=== PATIENT | female | born 1940 | race Caucasian/White ===

== ENCOUNTER 2016-10-29 14:14 | Inpatient (IN) | payer MEDICARE ==
[~2016-10-29] VITALS: Ht 152.4 cm; Wt 60.5 kg
[2016-10-29 13:49] VITALS: BP 159/83; PULSE 94; RESP 20; O2SAT 97
[~2016-10-29 14:14] MED LIST: ALBU1.25 INHALATION; ALBU8.5H4 IH; ASPI81TA3 PO; ATOR40TA69 PO; CALC500T53 PO; CLOP75TA28 PO; DILT30TA PO; FERR-83 PO; KTC2C15 TP; LOSA50TA37 PO; PANT40TA2 PO; RANI300T4 PO; VIT1TABL83 PO; [UNRECOGNIZED DRUG - CODE] PO
--- NOTE | 2016-10-29 15:10 | ED.REPORT ---
HPI-Trauma Minor / Fall Date of Service October 29, 2016 ED Provider: Dwayne Mccoy MD Patient is a 76 year old female with a history of stroke, hyponatremia and hypertension who presents to the ED via EMS complaining of right shoulder pain. Associated symptoms include dizziness, an episode of syncope, diaphoresis, lightheaded, unable to control her bowels, and hitting her head. She denies difficulty swallowing, numbness, tingling or weakness in her legs. The patient reports that her symptoms have resolved besides the right shoulder pain. Per the patient's daughter, the patient's son tripped and fell on top of her and they both fell on a glass table, where she also hit her head. Currently taking ASA and Plavix. Nursing Notes Stated Complaint: R SHOULDER PAIN Chief Complaint: Multiple Trauma/Fall Nursing Notes Reviewed: Yes Allergies: Coded Allergies: Sulfa (Sulfonamide Antibiotics) (Verified Allergy, Intermediate, NAUSEA, 04/27/16) Scheduled Ascorbic Acid (Acerola C) 500 Mg Wafer 500 MG PO DAILY Aspirin Chew (Aspirin Chew) 81 Mg Chew 81 MG PO DAILY Atorvastatin Calcium (Atorvastatin Calcium) 40 Mg Tablet 40 MG PO HS Calcium Carbonate (Calcium Carbonate) 200 Mg Tab.chew 200 MG PO BID Clopidogrel (Clopidogrel) 75 Mg Tablet 75 MG PO DAILY Diltiazem (Diltiazem) 30 Mg Tablet 30 MG PO TID Ferrous Sulfate (Ferrous Sulfate) 325 Mg Tablet 325 MG PO DAILY Ketoconazole (Ketoconazole) 15 Gm Cream..g. 2 % TP DAILY Pantoprazole DR (Protonix) 40 Mg Tablet 40 MG PO DAILY Vit B Comp/C/FA/Iron/Vit E (Vitamin B Complex Tablet) 1 Each Tablet 1 EACH PO DAILY Scheduled PRN Albuterol Neb Soln (Albuterol Neb Soln) 1.25 Mg/3 Ml Vial.neb 1.25 MG INHALATION Q6H PRN PRN For Shortness of Breath General Time Seen by MD: 15:07 Chief Complaint Fall Hx Obtained From: Patient, Daughter Arrived By: Ambulance Onset Occurred: Just prior to arrival Symptom Duration: Since onset Caused by: Fall on ground Location: Shoulder right Recent Healthcare: No recent hospitalization, Recent doctor visit Similar Sx Previous: No Past Medical History Past Medical History COPD hiatal hernia arthritis anxiety anemic hypoatremia Reports: Asthma, COPD, Hypertension Reports: Thyroid disease Past Surgical History carotid Smoking History Former Smoker Social History Alcohol Use: Denies alcohol use Other Social History: Good social support Ambulatory Status Independent Review of Systems Respiratory: Denies: Non-productive cough, Shortness of breath Musculoskeletal: Reports: Extremity pain (right shoulder) Skin: Reports Diaphoresis Neurologic: Reports: Dizziness, Lightheaded, Syncope, Denies: Numbness, Weakness Complete sys rev & neg: except as marked. Female: Reports: Incontinence Physical Exam Initial Vital Signs Vital Signs (First) Date Time Temp Pulse Resp B/P Pulse Ox O2 Delivery O2 Flow Rate FiO2 10/29/16 13:49 36.0 94 20 159/83 97 Nasal Cannula 2 Initial VS: Reviewed General/Constitutional: Awake, Alert, No acute distress Neck: Atraumatic, Supple, Full range of motion Head / Eyes: Atraumatic, Normocephalic, PERRL, EOMI NOSE: .5 cm superficial abrasion to left nasal bridge Respiratory / Chest: Atraumatic, No respiratory distress Abdomen: Atraumatic, Soft, Non-tender Upper Extremity / MS: Neurologic intact, Vascular intact UPPER EXTREMITIES: Gross defomity of the right shoulder Lower Extremity / Pelvis / MS: Atraumatic, Full range of motion, Neurologic intact, Vascular intact Skin: Atraumatic, Color NL, No rash, Warm, Dry Neurologic: Oriented X3, Speech NL, No motor deficits, No sensory deficits, CN II - XII intact Psychiatric: Affect NL, Mood NL Interpretation & Diagnostics Lab Results Interpretation Result Diagram: 10/29/16 1445 10/29/16 1445 Test 10/29/16 14:45 White Blood Count 10.9th/mm3 (3.8-10.1) Red Blood Count 3.62mil/mm3 (3.90-5.20) Hemoglobin 11.1g/dL (12.0-15.6) Hematocrit 33.9% (35.0-46.0) Mean Corpuscular Volume 93.6fL (81-100) Mean Corpuscular Hemoglobin 30.7pg (27.0-35.0) Mean Corpuscular Hemoglobin Concent 32.7% (32.0-37.0) Red Cell Distribution Width 14.9% (12.3-15.4) Platelet Count 322bil/L (150-400) Neutrophils (%) (Auto) 88.7% (40-74) Lymphocytes (%) (Auto) 5.3% (14-46) Monocytes (%) (Auto) 5.5% (4-12) Eosinophils (%) (Auto) 0.1% (0-5) Basophils (%) (Auto) 0.2% (0-3) Hold Purple Top Tube Received (Received) Hold Blue Top Tube Received (Received) Sodium Level 133mEq/L (134-144) Potassium Level 4.6mEq/L (3.5-5.2) Chloride Level 93mEq/L (97-108) Carbon Dioxide Level 25mmol/L (18-29) Blood Urea Nitrogen 16mg/dL (8-27) Creatinine 0.78mg/dL (0.57-1.00) Estimat Glomerular Filtration Rate 103mL/min (>59) Glucose Level 121mg/dL (60-99) Calcium Level 9.8mg/dL (8.5-10.1) Magnesium Level 1.8mg/dL (1.6-2.6) Total Bilirubin 0.2mg/dL (0.0-1.2) Aspartate Amino Transf (AST/SGOT) 29U/L (0-50) Alanine Aminotransferase (ALT/SGPT) 22U/L (0-32) Alkaline Phosphatase 87U/L (25-165) Troponin T < 0.010ug/L (0.0-0.011) Total Protein 6.8g/dL (6.4-8.4) Albumin 4.0g/dL (3.4-5.0) Hold [place] Top Tube Received (Received) Hold [place] Top Tube Received (Received) ECG Interpretation ECG Interpretation: sinus tachycardia, rate 103 high T-wave V2-V6, unchanged from previous EKG Time: 14:11 Interpreted by: ED physician X-Ray Interpretation Xray Interpretation: IMPRESSION: 1. Comminuted displaced and impacted humeral neck fracture. Dictated by: Romeo Angel M.D. on 10/29/2016 at 15:53 Approved by: Romeo Angel M.D. on 10/29/2016 at 15:55 X-Ray Ordered: Shoulder right Interpretation / Wet Read by: Interpret - Radiologist Xray Interpretation: IMPRESSION: Moderately displaced fracture of the surgical neck of the proximal right humerus. Dictated by: Kevin Henry M.D. on 10/29/2016 at 15:02 Approved by: Kevin Henry M.D. on 10/29/2016 at 15:04 X-Ray Ordered: Humerus right Interpretation / Wet Read by: Interpret - Radiologist Xray Interpretation: IMPRESSION: Improved alignment post closed postreduction. Dictated by: Jacobo Garsia M.D. on 10/29/2016 at 17:20 Approved by: Jacobo Garsia M.D. on 10/29/2016 at 17:24 X-Ray Ordered: Humerus right Interpretation / Wet Read by: Interpret - Radiologist CT Head Interpretation IMPRESSION: 1. No acute intracranial abnormalities. 2. Cerebral volume loss and chronic microvascular ischemic changes. Dictated by: Jacobo Garsia M.D. on 10/29/2016 at 18:06 Approved by: Jacobo Garsia M.D. on 10/29/2016 at 18:09 Interpretation / Wet Read by: Interpret - Radiologist Procedures Proced Mod Sedation/Analgesia Sedation repeated again at 1652 for same fracture reduction procedure. Consent received. Time: 16:36 Procedure Performed by: ED physician Sedation Time: 16 - 30 min Consent / Setup: Informed consent provided, Consent from patient, Time-out performed, Hand hygiene observed, Position supine Indication: Fracture reduction Preparation: tea leaf reader applied, Constant attendance, Procedure explained VS Prior to Procedure: All vital signs normal Mallampati: Class & Anatomy: 2 top tonsil/uvula/palate Airway Exam: Normal facial anatomy, Normal neck anatomy CVS/Resp Exam: Normal breath sounds, Normal heart sounds Neuro Exam: Alert, No acute distress, Responsive Sedation: Sedation: Propofol ASA Classification: 3 sev disease/not incap Response During Procedure: Handled secretions adeq, Maintained airway well, Oxygenation stable, Sedation appropriate, Vital signs stable Complications During/After: None Mental Status After Procedure: Alert, Oriented X3, Response to verbal stim Post-Procedure: Alert prior to discharge, Vital signs normal Attestation: I performed procedure, I performed sedation Reduction Dislocated Shoulder Procedure tried again at 1654. Procedure was successful Time: 16:38 Procedure Performed by: ED physician Consent / Setup: Informed consent provided, Consent from patient, Time-out performed, tea leaf reader applied, Hand hygiene observed Procedural Sedation/Analgesia: Sedation: Propofol Which Shoulder and Technique: Right shoulder Neurovascular: Intact pre-procedure, Intact post-procedure Post-Procedure / Complications: Procedure not successful, Condition improved, Tolerated procedure well, Patient stable Re-Eval/Medical Decision Med Decision/Clinical Course 76-year-old female history of COPD presenting status post ground-level fall onto her face and right shoulder earlier today. She has a right proximal humerus fracture which I reduced under conscious sedation per Ortho recommendation. Per Ortho, ok if 10-20% reapproximation which was obtained. Splinted. She was awaiting discharge, patient has syncopal event. Her orthostatics are positive. She was given 1.5 L and had another syncopal event. She had no cardiac prodrome. She does not feel comfortable going home. She will be admitted for syncopal event which I suspect is likely orthostatic. Her CT head was normal. Discussed with orthopedics who is aware she has been admitted but likely nonoperative at this point. Source of Hx: Old records Re-Evaluation/Progress #1: Time of Eval: 15:55 Re-Evaluation/Progress Note: Discussed results of the X-ray. Re-Evaluation/Progress #2: Time of Eval: 16:35 Re-Evaluation/Progress Note: Discussed plan for procedure. The patient understands and agreese to the procedure. All questions addressed. Re-Evaluation/Progress #3: Time of Eval: 17:49 Patient Status: Condition improved Re-Evaluation/Progress Note: Discussed plan for discharge after CT results come back. The patient understands and agrees to the plan for discharge. All questions were addressed. Re-Evaluation/Progress #4: Time of Eval: 18:11 Re-Evaluation/Progress Note: Patient had a syncopal event Rechecked patient who reports she no longer feels lightheaded or dizzy. Discussed plan for further labs. Re-Evaluation/Progress #5: Time of Eval: 19:40 Re-Evaluation/Progress Note: Discussed code status with family present. The patient would like to be resuscitated but not put on life support. Discussed plan for admit. The patient understands and agrees to the plan for admit. All questions were addressed. Consultation #1: Referral / Consult Name: Fabio Agrawal MD Consulted With: Surgeon (ortho) Call Returned at: 15:53 [employer] Admin: Agrees with eval, Agrees with plan Note: Consult with Dr. Talon Agrawal, orthopedic surgeon, who recommends the patient have her arm set and put in a sling and follow up with the ortho surgeon next week. Consultation #2: Referral / Consult Name: Casandra Dover Consulted With: Hospitalist Call Returned at: 21:41 [employer] Admin: Agrees with eval, Agrees with plan, Accepts admit Counseled Regarding: Diagnosis, Lab results, Need for admission Discharge & Departure Impression: Primary Impression: Humerus fracture Encounter type: initial encounter Humerus Location: surgical neck Fracture type: closed Fracture morphology: unspecified fracture morphology Fracture alignment: displaced Laterality: right Qualified Code: S42.211A - Unspecified displaced fracture of surgical neck of right humerus, initial encounter for closed fracture Additional Impressions: Fall Encounter type: initial encounter Qualified Code: W19.XXXA - Unspecified fall, initial encounter Syncope Syncope type: unspecified Qualified Code: R55 - Syncope and collapse Head trauma Disposition: ADMITTED TO HOSPITAL Discharge Condition All VS Reviewed: Yes Condition: Stable Referrals: Jay Jay Vinson MD (PCP) Karen Attestation Portions of this note were transcribed by Johanny Wong. I, Dr. Matthew Chapa personally performed the history, physical exam and medical decision-making; I reviewed and confirmed the accuracy of the information in the transcribed note. Signed by: Karen Gibson, 10/29/16 and 5206 copies to: Jay Jay Vinson MD, Ben M MD October 29, 2016 15:10 Madelaine Wong October 29, 2016 15:53
--- NOTE | 2016-10-29 15:56 | DRSVH ---
PROCEDURE: X-RAY RIGHT SHOULDER, MINIMUM TWO VIEWS ([id number]) INDICATIONS: RIGHT SHOULDER PAIN POST FALL TECHNIQUE: 2 views of the shoulder were acquired. COMPARISON: None. FINDINGS: Bones: There is a comminuted fracture through the humeral neck with medial displacement of the dista l component approximately 3 cm. There is also mild impaction. Soft tissues: No suspicious soft tissue calcifications. IMPRESSION: 1. Comminuted displaced and impacted humeral neck fracture. Dictated by: Romeo Angel M.D. on 10/29/2016 at 15:53 Approved by: Romeo Angel M.D. on 10/29/2016 at 15:55
[2016-10-29 16:05] VITALS: BP 141/80; PULSE 104; RESP 22; O2SAT 98
--- NOTE | 2016-10-29 16:05 | DRSVH ---
PROCEDURE: X-RAY RIGHT HUMERUS, MINIMUM TWO VIEWS ([id number]) INDICATIONS: TRAUMA TECHNIQUE: 2 views of the humerus were acquired. COMPARISON: [facility], , CHEST 2VW, 08/18/2014, 9:49. FINDINGS: Bones: The bone mineralization is diffusely decreased. No suspicious osseous lesions are evident. T here is a transverse fracture with minimal comminution involving the anatomic neck of the proximal ri ght humerus. Anterior medial displacement of the humeral shaft fracture fragment is evident with res pect to the humeral head fracture fragment. The humeral head fracture fragment appears to articulate with the glenoid. Degenerative changes of the glenohumeral and acromioclavicular joints are present . Chronic right-sided rib fractures are noted, healed. Soft tissues: No suspicious soft tissue calcifications. There is a prominent lipohemarthrosis of th e right shoulder joint with surrounding soft tissue about the right shoulder. IMPRESSION: Moderately displaced fracture of the surgical neck of the proximal right humerus. Dictated by: Kevin Henry M.D. on 10/29/2016 at 15:02 Approved by: Kevin Henry M.D. on 10/29/2016 at 15:04
[2016-10-29] MEDS ORDERED: Propofol 10 mg/mL 20 mL Inj IVPUSH ONE (16:10)
[2016-10-29 17:10] VITALS: BP 145/75; PULSE 88; RESP 21; O2SAT 99
--- NOTE | 2016-10-29 17:26 | DRSVH ---
PROCEDURE: X-RAY RIGHT HUMERUS, ONE VIEW ([id number]) INDICATIONS: post-reduction TECHNIQUE: 3 views of the humerus were acquired. COMPARISON: [facility], CR, XR SHOULDER MIN 2VW RT, 10/29/2016, 15:17. [facility], CR, XR HUMERUS 2VW RT, 10/29/2016, 15:17. FINDINGS: Bones: Slightly improved alignment involving the comminuted fracture of the right humeral head and n apurva. There is residual medial displacement. Soft tissues: No suspicious soft tissue calcifications. IMPRESSION: Improved alignment post closed postreduction. Dictated by: Jacobo Garsia M.D. on 10/29/2016 at 17:20 Approved by: Jacobo Garsia M.D. on 10/29/2016 at 17:24
[2016-10-29] MEDS ORDERED: Ondansetron 2 mg/mL 2 mL Inj IVPUSH ONE (17:35)
--- NOTE | 2016-10-29 18:10 | DRSVH ---
PROCEDURE: CT BRAIN WITHOUT CONTRAST ([id number]) INDICATIONS: 76 year-old woman with trauma. TECHNIQUE: Noncontrast 4.5 mm thick angled axial sections acquired from the foramen magnum to the vertex, with c oronal reformats. COMPARISON: [facility], CT, CT BRAIN WO CON, 04/27/2016, 21:49. FINDINGS: Image quality: Excellent. CSF spaces: Basal cisterns are patent. No extra-axial fluid collections. The ventricles are symmet samina in size and shape. Brain: No intracranial bleeds or masses. There are small cortical infarcts in the right parieto-occ ipital lobe, unchanged. There is cerebral volume loss for age, with resultant ventricular and sulcal prominence. There are periventricular and deep white matter chronic small vessel ischemic changes. There is intracranial internal carotid artery atherosclerosis. Skull and face: Calvarium and visualized facial bones appear intact, without suspicious lesions. Sinuses: Visualized sinuses and mastoids are clear. IMPRESSION: 1. No acute intracranial abnormalities. 2. Cerebral volume loss and chronic microvascular ischemic changes. Dictated by: Jacobo Garsia M.D. on 10/29/2016 at 18:06 Approved by: Jacobo Garsia M.D. on 10/29/2016 at 18:09
[2016-10-29 18:34] LABS: BASOPHILS % (AUTO) 0.2 % (0-3); EOSINOPHILS % (AUTO) 0.1 % (0-5); MONOCYTES % (AUTO) 5.5 % (4-12); Mean Corpuscular Hemoglobin 30.7 pg (27.0-35.0); Mean Corpuscular Volume 93.6 fL (81-100); NEUTROPHILS % (AUTO) 88.7 % (40-74); Platelet Count 322 bil/L (150-400)
[2016-10-29 18:50] VITALS: BP 122/54; PULSE 89; RESP 24; O2SAT 97
[2016-10-29 18:56] LABS: TROPONIN T < 0.010 ug/L (0.0-0.011)
[2016-10-29 19:11] LABS: Magnesium 1.8 mg/dL (1.6-2.6)
[2016-10-29] MEDS ORDERED: 0.9% Sodium Chloride 500 ML IV ONE (19:25)
[2016-10-29] MEDS ORDERED: Ondansetron 2 mg/mL 2 mL Inj IVPUSH PRN ×2 (21:45→22:45)
[2016-10-29] MEDS ORDERED: Alum-Mag Hydrox-Simeth 30 mL Suspension PO PRN ×2 (21:45→22:45)
[2016-10-29 22:38] VITALS: BP 130/71; PULSE 104; RESP 20; O2SAT 97
[2016-10-29] MEDS ORDERED: HYDROcodone-APAP 5-325 mg Tablet PO PRN (22:45)
[2016-10-29] MEDS ORDERED: Polyethylene Glycol (PEG) 17 Gm Powder PO PRN (22:45)
[2016-10-29 23:10] VITALS: BP 104/52; PULSE 102; RESP 16; O2SAT 93
--- NOTE | 2016-10-29 23:26 | PCM.HPMED ---
Subjective Date of Service October 29, 2016 Primary Provider: Admitting Physician: Casandra Dover DO Primary Care Physician: Jay Jay Vinson MD Attending Physician: Casandra Dover DO Admit Status: From the Emergency Department Chief Complaint: GLF and syncope History of Present Illness: Melisa is a 72-year-old female with history of CVA, hyponatremia, hypertension, and COPD who presented to the ED for right shoulder pain. She reports that her son tripped and fell on top of her and they both fell onto the kitchen table. She did hit her head on the kitchen table, but denies any loss of consciousness. In the ED, she had a shoulder x-ray that showed comminuted humeral neck fracture with displacement. Orthopedics was consultative and recommended closed reduction, splinting, immobilizing, and follow-up as outpatient. After 2 conscious sedation attempts, closed reduction was moderately successful, but on the second attempt patient was noted to have a syncopal episode with loss of bowel control and diaphoresis. Subsequent brain CT scan did not show any acute abnormalities. Patient again was witnessed to have a near syncopal episode with an assisted trip to the bathroom. She had orthostatic vital signs taken which again, elicited a near syncopal episode. Patient denies any associated chest pain, severe headache, increased shortness of breath, vision changes, or nausea/vomiting with these episodes. Did not appear to be any seizure-like activities prior to the syncopal episodes, and no postictal state. Prior to the ground-level fall today, patient reports she had been at baseline and able to do all her ADLs without any dyspnea. Her history is pertinent for a recent right carotid endarterectomy in May after she was found to have critical stenosis after a CVA that occurred at this hospital in April. She is currently on dual antiplatelet therapy with ASA and Plavix. Review of Systems: complete review of system obtained and negative except as stated in the history of present illness Allergies Coded Allergies: Sulfa (Sulfonamide Antibiotics) (Verified Allergy, Intermediate, NAUSEA, 04/27/16) Home Medications From Next gen albuterol sulfate 2.5 mg/0.5 mL solution for nebulization inhale 0.5 milliliter by nebulization route every 6 hours albuterol sulfate HFA 90 mcg/actuation aerosol inhaler inhale 2 puff by inhalation route every 4 - 6 hours as needed aspirin 81 mg tablet,delayed release take 1 tablet by oral route every day atorvastatin 40 mg tablet take 1 tablet by oral route every day clopidogrel 75 mg tablet take 1 tablet by oral route every day Compact Compressor Nebulizer use with albuterol 4 times a day . diltiazem 30 mg tablet take 1 tablet by oral route 3 times every day iron 325 mg (65 mg iron) tablet take 1 tablet by ORAL route every day Vitamin B Complex With C capsule PMH Chronic hyponatremia Adams's palsy Iron deficiency Anemia Thyroid nodule Hypertension COPD previously on home O2 Hiatal hernia/AVM/GERD UTI Anxiety Eczema PAD CVA with left sided weakness Bilateral carotid stenosis s/p endarterectomy of right side - 10/2016 Surgical History right carotid endarterectomy Family History Family history of HTN and CAD Social History Hx Alcohol Use: No Hx Substance Use: No Hx Tobacco Use: No Smoking Status: Former Smoker Living Arrangement: Alone Exam Vital Signs Vital Sign - Last Date Time Temp Pulse Resp B/P Pulse Ox O2 Delivery O2 Flow Rate FiO2 10/29/16 22:38 104 20 130/71 97 Room Air 10/29/16 17:10 3 10/29/16 13:49 36.0 Exam General: Thin elderly female who appears in mild pain while laying in bed, alert and oriented 3 HEENT: Small abrasion across the nasal bridge, PERRLA, EOMI, sclerae anicteric, oropharynx moist and pink, poor dentition Neck: Soft, mild right paraspinal muscle tenderness to palpation, trachea midline CV: Regular rate and rhythm, no M/R/C noted, peripheral radial pulses intact and equal Respiratory: CTA B, mildly distant lung sounds, no wheezing or rhonchi, normal respiratory effort Abdomen: Soft, mild tenderness to palpation of the right quadrants, nondistended , NABS, no rashes noted MSK: Right arm placed in sling and immobilized, muscle strength 5/5 of LUE and BLE, no swollen or tender joints other than the right shoulder Neuro: Cranial nerves II-12 intact except for right shoulder shrugging due to pain from fracture. Face is symmetric, speech is intact and fluent, and sensation is intact and equal Skin: Warm, dry, intact Psych: Appropriate mood and affect, linear thought process, cooperative Lab and Diagnostics Result Diagram: 10/29/16 1445 10/29/16 1445 X-Rays, CTs and MRIs PROCEDURE: X-RAY RIGHT HUMERUS, ONE VIEW ([id number]) IMPRESSION: Improved alignment post closed postreduction. PROCEDURE: CT BRAIN WITHOUT CONTRAST ([id number]) IMPRESSION: 1. No acute intracranial abnormalities. 2. Cerebral volume loss and chronic microvascular ischemic changes PROCEDURE: X-RAY RIGHT SHOULDER, MINIMUM TWO VIEWS ([id number]) IMPRESSION: 1. Comminuted displaced and impacted humeral neck fracture. 12-lead ECG Sinus tachycardia heart rate of 103, no acute ST changes Assessment & Plan Melisa is a 72-year-old female with history of CVA, hyponatremia, hypertension, and COPD who is admitted for right shoulder fracture and syncopal episodes. Syncopal episodes, present on admission Patient fairly orthostatic from lying to sitting. Likely is the cause of patient's syncopal episodes. DDX to include are vasovagal, CVA or thrombosis, seizures, hypoxia Will continue frequent neurochecks overnight. IV NS at 100mls/hr Placed on telemetry for CV monitoring Recheck Orthostatic Vs in the AM. Consider neuro imaging if worsening. 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 Patient reports she was previously on home oxygen, but has not been requiring it after her recent CEA. We will continue home inhalers prn History of CVA, POA We will continue patient's ASA and Plavix and statin Hypertension, POA We will continue patient's home medication Chronic hyponatremia, POA Currently stable with a sodium of 133 on admission Continue to monitor and treat as appropriate Tylenol when necessary for fever/pain Zofran when necessary for nausea Bowel regimen when necessary for constipation CODE STATUS: Full resuscitation Disposition: Patient is admitted under observation status with expected length of stay less than 2 midnights due to risk of adverse events, decompensation, and medical complexity Pain Evaluation: Adequate Pain Control VTE Prophylaxis: Sub-Q Heparin (Unfractionated), SCDs Resuscitation Status: CPR: Attempt Resuscitation Attending Statement The patient was seen and examined together with house staff on 10/29/2016 and I agree with the history, exam and plan as outlined in the note above. Minh Gamez DO October 29, 2016 22:55 Casandra Dover DO October 30, 2016 03:36
[2016-10-29] MEDS: 0.9% Sodium Chloride 1,000 ML IV SCH (23:37)
[2016-10-29] MEDS ORDERED: Albuterol-Ipratropium 3 mL Inhalation Solution NEB PRN (23:40)
[2016-10-30] VITALS (11 sets, daily range): BP systolic 80–134; BP diastolic 49–72; PULSE 58–114; RESP 16–20; O2SAT 90–94
[2016-10-30] MEDS ORDERED: Albuterol 1.25 mg/3 mL Inhalation Solution INHALATION PRN (00:10)
--- NOTE | 2016-10-30 00:24 | NUR ---
Admit pt arrived to OSC room 1024 at 2300. she was transferred from the [facility] to the bed with sliding board. IV fluids started and tele monitor placed on pt. per gambling monitor pt is Sinus Tach 110. she is alert and oriented x3. sp02 is 93% on RA. pt eating a meal now has good appetite. pt has an abrasion on her nose, a large bruise on her R arm, and a small bruise on her R lower back. nurse monitoring the bruising for any rapid increase in size. Monitoring H&H with orders to transfuse if Hemoglobin below 7. Heparin held per MD orders. admit and med rec completed in Ed. care continues
[2016-10-30] MEDS: Heparin 5,000 Unit/mL Inj SUBQ SCH ×3 (00:30→18:05)
[2016-10-30 06:15] LABS: BASOPHILS % (AUTO) 0.1 % (0-3); EOSINOPHILS % (AUTO) 0.4 % (0-5); MONOCYTES % (AUTO) 6.5 % (4-12); Mean Corpuscular Hemoglobin 30.9 pg (27.0-35.0); Mean Corpuscular Volume 95.1 fL (81-100); NEUTROPHILS % (AUTO) 87.1 % (40-74); Platelet Count 259 bil/L (150-400)
[2016-10-30] MEDS: 0.9% Sodium Chloride 1,000 ML IV SCH ×3 (06:38→20:01)
[2016-10-30] MEDS: Pantoprazole 40 mg ER24 Tablet PO SCH (11:04)
--- NOTE | 2016-10-30 11:11 | NUR ---
Social Work- Initial Assessment Data: See Initial Assessment. Pt is a 76 year old female admitted 10/29/16 under observation status per H&P. Pt's insurance is [facility] and [employer]. Pt's PCP is Jay Jay Vinson MD. Pt's readmit score is not listed at this time. Pt discussed in AM rounds, RETURNING OFFICER and agreed that pt would benefit from PT/OT evaluation once medically clear. MD is following pt's H&H, pt has had orthostatic vitals. PT and OT order to be placed. SINAN met with pt and daughter Alek Mcmahan [phone] at bedside regarding discharge plan, SW role explained. Pt alert and oriented x3, pt was dozing during conversation and Alek completed most of it. Pt resides at home in [place] in a [facility] level home where she receives assistance/monitoring from family with medications, bathing, laundry, chores. Pt's daughter and granddaughter plan to share caregiving duties for pt at discharge. Pt uses no DME at baseline, does have a walker available for use. Pt has a bath bench and raised toilet seat available for use after discharge if needed. Pt has an O2 concentrator and tanks through [facility], though per dtr report she has not used it since May 2016. Pt has no HH or SNF history. Of Note: pt's daughter is open to HH if necessary but felt it would not be needed at this time. Pt's daughter is adamantly opposed to SNF as a discharge plan. Pt has no LTC or VA benefits. SW informed pt's daughter that RETURNING OFFICER would be able to assist with acquiring more DME if needed, though most of it is private pay. Daughter agreeable to this. SW provided phone number and plan on whiteboard. PT/OT evaluation pending. Pt to discharge home with family support via POV pending clinical course. SW to R/O HH prior to discharge. SW will continue to follow. Assessment: Pt who has family support at home and may benefit from HH Plan: PT/OT evaluation pending. Pt to discharge home with family support via POV pending clinical course. SW to R/O HH prior to discharge. SW will continue to follow. TAD Neal Addendum: 10/30/16 at 1119 by BLAIR NICK SS Amended: Links added.
--- NOTE | 2016-10-30 11:27 | NUR ---
Case Management: NEHEMIAH delivered and explained to pt. and daughter. Original placed in chart. Copy left at bedside. Bharati Drew RN
--- NOTE | 2016-10-30 14:35 | PCM.CONORT ---
Subjective Surgeon Admitting Provider:Casandra Dover DO Attending Provider:Casandra Dover DO Primary Care Physician:Jay Jay Vinson MD Other Provider:Deny Miles Anesthesia Reason for Consultation: Right shoulder pain Allergy Allergies: Coded Allergies: Sulfa (Sulfonamide Antibiotics) (Verified Allergy, Intermediate, NAUSEA, 04/27/16) Medications Albuterol Neb Soln (Albuterol Neb Soln) 1.25 Mg/3 Ml Vial.neb 1.25 MG INHALATION Q6H PRN PRN For Shortness of Breath (Reported) Last Taken: Unknown Dose on Unknown Date & Time Ascorbic Acid (Acerola C) 500 Mg Wafer 500 MG PO DAILY (Reported) Last Taken: Unknown Dose on 10/29/16 0900 Aspirin Chew (Aspirin Chew) 81 Mg Chew 81 MG PO DAILY Prescribed by: LORENZO MITCHELL DO Last Taken: Unknown Dose on 10/29/16 0900 Atorvastatin Calcium (Atorvastatin Calcium) 40 Mg Tablet 40 MG PO HS Prescribed by: LORENZO MITCHELL DO Last Taken: Unknown Dose on 10/29/16 0900 Calcium Carbonate (Calcium Carbonate) 200 Mg Tab.chew 200 MG PO BID (Reported) Last Taken: Unknown Dose on 10/29/16 0900 Clopidogrel (Clopidogrel) 75 Mg Tablet 75 MG PO DAILY (Reported) Last Taken: Unknown Dose on 10/29/16 0900 Diltiazem (Diltiazem) 30 Mg Tablet 30 MG PO TID (Reported) Last Taken: Unknown Dose on 10/29/16 0900 Ferrous Sulfate (Ferrous Sulfate) 325 Mg Tablet 325 MG PO DAILY (Reported) Last Taken: Unknown Dose on 10/29/16 0900 Ketoconazole (Ketoconazole) 15 Gm Cream..g. 2 % TP DAILY (Reported) Last Taken: Unknown Dose on 09/29/[address] (Protonix) 40 Mg Tablet 40 MG PO DAILY Prescribed by: LORENZO MITCHELL DO Last Taken: Unknown Dose on 10/29/16 0900 Vit B Comp/C/FA/Iron/Vit E ( Vitamin B Complex Tablet) 1 Each Tablet 1 EACH PO DAILY (Reported) Last Taken: Unknown Dose on 10/28/16 1200 Discontinued Medications Albuterol HFA (Albuterol HFA) 8.5 Gm Hfa.aer.ad 1 PUFF IH Q4 PRN PRN For Shortness of Breath (Reported) Losartan Potassium (Losartan Potassium) 50 Mg Tablet 50 MG PO BID (Reported) Ranitidine (Ranitidine) 300 Mg Tablet 300 MG PO BID (Reported) History History of ENT Problems?: No HEENT History: Denies:: Abnormal Airway Cataracts Difficult Intubation Dysphagia Glaucoma Hearing Problem Sinus Problem Denture Type: Partial- Upper Partial- Lower Teeth Condition: Within Normal Limits Hx of Heart Problems?: Yes Cardiovascular History: Positive for:: Hypertension Denies:: AICD Atrial Fibrillation Cardiac Surgery Chest Pain Congestive Heart Failure Edema Pacemaker Valvular Heart Disease Hx of Respiratory Problem?: Yes Respiratory History: Positive for:: Asthma COPD Cough Dyspnea Denies:: Chest Surgery Hemoptysis Pneumonia Tuberculosis Hx Neurologic Problems?: Yes Neurological History: Positive for:: Dizziness Headaches Denies:: Alzheimer's Disease CVA Dementia Parkinson's Disease Seizures Hx of GI Problems?: No Hx of Problems?: No Genitourinary History: Positive for:: Urinary Tract Infection Denies:: HX of Hemodialysis Kidney Stones HX of Peritoneal Dialysis: No Female Hx: Denies:: Currently Endometriosis Pelvic Inflammatory Problems with Breasts? Hx Musculoskeletal Problems?: Yes Musculoskeletal History: Denies:: Back Injury Joint Replacement Musculoskeletal Trauma Other History/Comment Melisa Beach is a 76-year-old right hand dominant patient who presents to the ER and orthopedic evaluation was requested for their ongoing symptoms of the right shoulder. PT with hx of CVA, hyponatremia, hypertension, and COPD, She is on plavix and and ASA and reports that she cannot come off of it for elective surgery per her doctor. The patient states that their pain is a sharp in nature and mild/moderate in severity localized to the deep aspect of the shoulder without radiation. This has been progressing over the past day after falling. Moreover, the pain is exacerbated by activities, especially with movement. Rest seems to improve the symptoms. There is no reports numbness, tingling, or weakness to the affected distal upper extremity. The pain does wake the patient up at night. The patient denies any fever, chills, nausea, vomiting, chest pain, shortness of breath, or calf tenderness. Previous treatment has included:reduction in ER, sling. Work/hobbies/sports include: [ none]. Hx of Psycho/Social Problems?: No Psycho Social History: Positive for:: Anxiety Denies:: Bipolar Disorder Hx Depression Hx Surgeries?: Yes (CAROTID) Hx Any Other Health Problems?: Yes Other History: Positive for:: Hospitalization (hyponatremia) Thyroid Disease Denies:: Cancer Endocrine Disease History Blood Transfusions: Positive for:: Accept Blood Products? Denies:: Blood Transfuse Reaction Blood Transfusions Hx Diabetes: NoBedside Blood Glucose: 123 Hx Alcohol Use: NoHx Substance Use: No Smoking Status: Former Smoker Have You Smoked inLast 12 mo: NoApprox How Many Cigarettes/day: LESS THAN 1PK/ DAY Objective Exam Objective Vital Signs & I/O Vital Sign- Last 8 Hours Date Time Temp Pulse Resp B/P Pulse Ox O2 Delivery O2 Flow Rate FiO2 10/30/16 13:12 36.4 60 16 112/70 92 Room Air 10/30/16 10:30 36.7 58 17 118/67 93 Room Air 134/70 112/69 10/30/16 07:53 100 16 91 Room Air Intake and Output- Last 8 Hour 10/30/16 Cumulative From/Thru 06:59 10/29/16 13:49 - 10/30/16 06:46 Intake Total 1090 ml 1590 ml Output Total 50 ml 50 ml Balance 1040 ml 1540 ml Intake Oral 200 ml 200 ml IV Total 890 ml 1390 ml Output Urine Total 50 ml 50 ml # Bowel Movements 1 1 Lab & Micro Results Laboratory Tests Test 10/29/16 14:45 10/29/16 23:28 10/30/16 02:04 10/30/16 05:45 White Blood Count 10.9th/mm3 (3.8-10.1) 9.5th/mm3 (3.8-10.1) Red Blood Count 3.62mil/mm3 (3.90-5.20) 2.65mil/mm3 (3.90-5.20) Hemoglobin 11.1g/dL (12.0-15.6) 9.0g/dL (12.0-15.6) 8.4g/dL (12.0-15.6) 8.2g/dL (12.0-15.6) Hematocrit 33.9% (35.0-46.0) 27.6% (35.0-46.0) 26.1% (35.0-46.0) 25.2% (35.0-46.0) Mean Corpuscular Volume 93.6fL (81-100) 95.1fL (81-100) Mean Corpuscular Hemoglobin 30.7pg (27.0-35.0) 30.9pg (27.0-35.0) Mean Corpuscular Hemoglobin Concent 32.7% (32.0-37.0) 32.5% (32.0-37.0) Red Cell Distribution Width 14.9% (12.3-15.4) 15.2% (12.3-15.4) Platelet Count 322bil/L (150-400) 259bil/L (150-400) Neutrophils (%) (Auto) 88.7% (40-74) 87.1% (40-74) Lymphocytes (%) (Auto) 5.3% (14-46) 5.7% (14-46) Monocytes (%) (Auto) 5.5% (4-12) 6.5% (4-12) Eosinophils (%) (Auto) 0.1% (0-5) 0.4% (0-5) Basophils (%) (Auto) 0.2% (0-3) 0.1% (0-3) Hold Purple Top Tube Received (Received) Hold Blue Top Tube Received (Received) Sodium Level 133mEq/L (134-144) 134mEq/L (134-144) Potassium Level 4.6mEq/L (3.5-5.2) 5.2mEq/L (3.5-5.2) Chloride Level 93mEq/L (97-108) 96mEq/L (97-108) Carbon Dioxide Level 25mmol/L (18-29) 24mmol/L (18-29) Blood Urea Nitrogen 16mg/dL (8-27) 21mg/dL (8-27) Creatinine 0.78mg/dL (0.57-1.00) 1.05mg/dL (0.57-1.00) Estimat Glomerular Filtration Rate 103mL/min (>59) 73mL/min (>59) Glucose Level 121mg/dL (60-99) 136mg/dL (60-99) Calcium Level 9.8mg/dL (8.5-10.1) 9.2mg/dL (8.5-10.1) Magnesium Level 1.8mg/dL (1.6-2.6) Total Bilirubin 0.2mg/dL (0.0-1.2) Aspartate Amino Transf (AST/SGOT) 29U/L (0-50) Alanine Aminotransferase (ALT/SGPT) 22U/L (0-32) Alkaline Phosphatase 87U/L (25-165) Troponin T < 0.010ug/L (0.0-0.011) Total Protein 6.8g/dL (6.4-8.4) Albumin 4.0g/dL (3.4-5.0) Hold [place] Top Tube Received (Received) Hold Grijalva Top Tube Received (Received) Test 10/30/16 07:35 Sodium Level 136mEq/L (134-144) Potassium Level 5.4mEq/L (3.5-5.2) Chloride Level 101mEq/L (97-108) Carbon Dioxide Level 22mmol/L (18-29) Blood Urea Nitrogen 26mg/dL (8-27) Creatinine 1.21mg/dL (0.57-1.00) Estimat Glomerular Filtration Rate 62mL/min (>59) Glucose Level 123mg/dL (60-99) Calcium Level 8.6mg/dL (8.5-10.1) Microbiology 10/30/16 Stool Occult Blood (JEFFRY) - Final, Complete Result Diagram: 10/30/16 0545 10/30/16 0735 Review of Systems: Constitutional: Negative, except as otherwise mentioned in the history above. Ophthalmologic: Negative, except as otherwise mentioned in the history above. Cardiovascular: Negative, except as otherwise mentioned in the history above. Respiratory: Negative, except as otherwise mentioned in the history above. Gastrointestinal: Negative, except as otherwise mentioned in the history above. Genitourinary: Negative, except as otherwise mentioned in the history above. Musculoskeletal: Negative, except as otherwise mentioned in the history above. Neurological: Negative, except as otherwise mentioned in the history above. Psychiatric: Negative, except as otherwise mentioned in the history above. Hematologic/Lymphatic: Negative, except as otherwise mentioned in the history above. Allergic/Immunologic: Negative, except as otherwise mentioned in the history above. H&P Surgical Exam Exam Musculoskeletal: CONST: WD,WN, NAD, A+OX3 OCULAR: EOMI, no conjunctivitis/icterus ENT: no deformities, scars or lesions CARDIAC: Pulse is regular. No cyanosis,clubbing,edema RESP: regular,unlabored MSK: normal light touch median, ulnar, radial, lateral antebrachial, axillary nerve distribution. Intact AIN, PIN, u, r, ax motor. 2+ r pulse Right SHOULDER - scars, - swelling, - atrophy or asymmetry. TTP anteriorly ROM R/ L Strength/Pain deferred +painful arc, + pain with passive stretch, + pseudoparalysis, + crepitus Signs Neer's: na Hawkin's: na Belly- Off: na O'Briens: na Apprehension: na Jerk: na Drawer: na Sulcus: na Speed's:na Yergason: na Scapular Winging: na Crossbody Adduction: na Additional Information Two-view x-ray of the right shoulder demonstrates a moderate to severely displaced proximal humeral neck fracture with minimal bone apposition H&P Preop Plan Impression Right proximal humerus fracture Problems: Risks & Benefits * We have reviewed the risks and benefits as well as the alternatives to surgery. All questions were answered to the patient's satisfaction and a counseling note to that effect. The patient has provided informed consent. * I have counseled the patient regarding the deleterious effects that smoking during the perioperative period can have upon wound healing, infection rates, and the overall rate of complications. Plan Nonweightbearing right upper extremity Sling for comfort Recommend elbow, wrist, hand range of motion exercises daily Pain control Patient to follow up in clinic when discharged We discussed surgical versus nonsurgical treatment options as well as risks and complications associated with each option she has elected for nonoperative treatment given medical comorbidities and unable to stop ASA and plavix for recent carotid bovine graft surgery Continue medical management per primary continue Syncopal workup Please call with questions Please keep the affected extremity elevated when possible. You may use ice and/or heat as needed for comfort. All questions and concerns were addressed. Please feel free to call with any further questions, comments, and/or concerns. Fabio Agrawal MD October 30, 2016 14:35
--- NOTE | 2016-10-30 14:37 | NUR ---
Attempted eval X 2. RN and then PT were with pt. I will check on her in the morning. Satish Green, OTR/L
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
[2016-10-30 18:03] LABS: APPEARANCE,URINE CLEAR (CLEAR,HAZY); COLOR,URINE YELLOW (YELLOW); PH,URINE 5.5 (5.0-8.0)
[2016-10-30 18:04] LABS: OCCULT BLOOD,URINE NEGATIVE (NEGATIVE); UROBILINOGEN,URINE NORMAL (NORMAL)
[2016-10-31] VITALS (10 sets, daily range): BP systolic 0–149; BP diastolic 0–78; PULSE 86–98; RESP 16–20; O2SAT 96–99
[2016-10-31] MEDS: Heparin 5,000 Unit/mL Inj SUBQ SCH ×3 (00:30→16:30)
[2016-10-31] MEDS: 0.9% Sodium Chloride 1,000 ML IV SCH ×4 (02:49→22:49)
--- NOTE | 2016-10-31 04:20 | NUR ---
blood admin pt had a critical hemoglobin of 6.8. MD ordered 1 unit of PRBC. blood admin consent signed. blood was started at 0320. her 15 min VSS check was stable no s/sx of reaction at this time. will continue to monitor for reaction. also watching for signs of fluid overload. earlier in the shift nurse reported to MD that pt had an increase in edema in lower extremities and was more SOB then before. MD ordered NS to be stopped. currently pts lungs sound clear and she is on 2L of 02 while sleeping but tolerating being on RA while awake. will monitor for signs of fluid overload. Addendum: 10/31/16 at 0718 by ANIKA TROTTER RN pt tolerated blood admin with no signs of recreation. VSS and afebrile
[2016-10-31 07:41] LABS: BASOPHILS % (AUTO) 0.4 % (0-3); EOSINOPHILS % (AUTO) 0.5 % (0-5); Mean Corpuscular Hemoglobin 30.8 pg (27.0-35.0); Mean Corpuscular Volume 92.5 fL (81-100); NEUTROPHILS % (AUTO) 73.4 % (40-74); Platelet Count 231 bil/L (150-400)
--- NOTE | 2016-10-31 09:11 | NUR ---
Evaluation completed. Please go to "Notes" then click on "Assessments and Notes" (bottom left corner of screen). Then select appropriate discipline tab on top of screen.
[2016-10-31] MEDS: Pantoprazole 40 mg ER24 Tablet PO SCH (09:16)
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
[2016-11-01] VITALS (13 sets, daily range): BP systolic 128–151; BP diastolic 57–74; PULSE 81–95; RESP 16–18; O2SAT 97–100
[2016-11-01] MEDS: Heparin 5,000 Unit/mL Inj SUBQ SCH ×3 (01:19→15:47)
[2016-11-01] MEDS: 0.9% Sodium Chloride 1,000 ML IV SCH ×2 (05:29→11:56)
[2016-11-01 06:03] LABS: BASOPHILS % (AUTO) 0.5 % (0-3); EOSINOPHILS % (AUTO) 1.3 % (0-5); MONOCYTES % (AUTO) 10.7 % (4-12); Mean Corpuscular Volume 96.4 fL (81-100); NEUTROPHILS % (AUTO) 72.2 % (40-74); Platelet Count 251 bil/L (150-400)
--- NOTE | 2016-11-01 07:20 | NUR ---
activity pt had an uneventful night. she took 650 mg of tylenol for pain at bedtime and has reported her pain as tolerable. ice has been placed on pts shoulder and arm elevated. she has slept comfortably all night. pt H&H has started to increase. VSS and afebrile. care continues.
[2016-11-01] MEDS: Pantoprazole 40 mg ER24 Tablet PO SCH (10:15)
--- NOTE | 2016-11-01 10:15 | NUR ---
Respiratory Pt assessed, found laying in bed on 2LNC. Sat 100%, HR 93, RR 22, BS clear/quiet bilaterally. Pt denied SOB at this time, stated breathing was going alright. Pt did not want a Tx at this time and is aware Tx is available if she feels the need.
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
--- NOTE | 2016-11-01 15:36 | DRSVH ---
PROCEDURE: X-RAY CHEST, TWO VIEWS ([id number]) INDICATIONS: hypoxemia/CHORNIC OBSTRUCTIVE PULMONARY DISEASE TECHNIQUE: 2 views of the chest were acquired. COMPARISON: [facility], CR, XR HUMERUS 2VW RT, 10/29/2016, 16:37. [facility] S, CR, CHEST 2VW, 08/18/2014, 9:49. [facility], CR, XR CHEST 1VW (PORTABLE), 04/27/2016, 12:46. FINDINGS: Surgical changes and devices: None. Lungs and pleura: No pleural effusions or pneumothorax. Lungs are clear. There are diffuse interst itial opacities Mediastinum: Mediastinal contours are normal. Heart size is normal. Bones and chest wall: Mid thoracic compression fractures, which appear chronic. Severely displaced fr acture of the surgical neck of the right humerus as before IMPRESSION: No acute disease or interval change. Hyperinflated lungs suggesting chronic obstructive physiology Right humerus fracture Dictated by: Dex Christopher M.D. on 11/01/2016 at 15:32 Approved by: Dex Christopher M.D. on 11/01/2016 at 15:34
--- NOTE | 2016-11-01 15:42 | NUR ---
NEHEMIAH signed. Pt required to sign with non-dominant hand. Kristi Zhang MSW
--- NOTE | 2016-11-01 18:48 | NUR ---
Off Unit Pt off unit at 1440 and returned at ~1455. A&Ox3. Stable condition. Left and returned by w/c on 2L NC. to BR upon return, Tele on, back to chair. Care continues.
--- NOTE | 2016-11-01 18:52 | NUR ---
Pain Pt typically stating that pain tolerable to shoulder in current position. Did encourage pt to take dose of PO Tylenol, pt accepting and was able to take a nap. Pain levels stated 2-3/10. Icing applied to shoulder. Swelling continues to RUE and pt continues to state, numbness/tingling to middle finger of right hand. States she can feel when digit is touched, but states it is a dull feeling. Continues icing and elevating wrist/hand area. Care continues.
[2016-11-02] VITALS (9 sets, daily range): BP systolic 121–149; BP diastolic 61–72; PULSE 73–87; RESP 16–19; O2SAT 96–100
[2016-11-02] MEDS: Heparin 5,000 Unit/mL Inj SUBQ SCH (00:39)
--- NOTE | 2016-11-02 03:59 | NUR ---
Pain Pt reports pain 4/10 when asking if she has pain, she says only with movement. Using PRN tylenol to keep pain at a 2/10 so she can get up tp BCS or BR. Pt had 0 episodes of hypotension. BP 143/66 and rec'd routine dilaudid. Right arm in sling, pillow supporting with elevation of wrist and hand using towel. Pt reports mild numbness/tingling to fingers, cap refill <3. Care continues
[2016-11-02 05:57] LABS: BASOPHILS % (AUTO) 0.6 % (0-3); EOSINOPHILS % (AUTO) 1.7 % (0-5); MONOCYTES % (AUTO) 11.2 % (4-12); Mean Corpuscular Hemoglobin 30.6 pg (27.0-35.0); Mean Corpuscular Volume 98.4 fL (81-100); NEUTROPHILS % (AUTO) 65.8 % (40-74); Platelet Count 252 bil/L (150-400)
[2016-11-02 06:20] LABS: Magnesium 1.8 mg/dL (1.6-2.6)
--- NOTE | 2016-11-02 09:01 | NUR ---
Social Work- Continued D/C Planning Data: EMR reviewed. Pt is on day 4 of hospitalization for syncope, humerus fracture per H&P. Pt is not medically stable for discharge, but is slowly improving. PT recommending HHPT and 24/7 supervision. SKI PATROL DIRECTOR met with pt and granddagabriela Solorio at bedside regarding home health services at time of discharge. Pt is agreeable to this, HH CHOICE LIST PROVIDED. Pt requested that SKI PATROL DIRECTOR call pavel Gaston [phone] regarding HH choice. T/C to Alek regarding HH, Alek states that pt's granddaughter works for [employer] [phone] and they would like to use those services. T/C to [employer] regarding potential referral, [employer] reports they only service [facility] for HH, would not be able to service pt on [place]. SKI PATROL DIRECTOR to follow up with pt and family regarding this, obtain new HH choice. SW will continue to follow. Assessment: Pt for whom HH is medically necessary. Plan: PT recommending HHPT and 24/7 supervision. [employer] does not service pt on [place]. SKI PATROL DIRECTOR to follow up with pt and family regarding new HH choice. SW will continue to follow. TAD Neal Addendum: 11/02/16 at 1135 by BLAIR NICK SKI PATROL DIRECTOR spoke with pt and pavel Gaston at bedside regarding HH. Alek requested referral be made to [facility]. T/C to linda Mason [facility] liaison [phone], who states that their PT service is completely booked at this time but she would have access to the PT calendar and know more availability on Thursday. SKI PATROL DIRECTOR faxed clinicals and signed F2F to Isabella at [phone]. Signed F2F in folder, hard copy in chart. SKI PATROL DIRECTOR to follow up with [facility] regarding PT availability for pt at discharge. Pt's daughter requested assistance obtaining DME for pt at discharge. Daughter requested BSC, Toilet Safety Frame, Hospital Bed, and hospital gowns. SKI PATROL DIRECTOR advised her to go to [employer] or [employer] for the BSC and Toilet Safety Frame, search retailers and online markets for hospital gowns. Daughter requested SKI PATROL DIRECTOR work with [employer] to obtain hospital bed. SKI PATROL DIRECTOR explained that pt's MCR will not cover hospital bed as it is not medically necessary. SKI PATROL DIRECTOR confirmed with Hospitalist that hospital bed is not medically necessary at discharge. [place] [facility] is closed on the weekend, SKI PATROL DIRECTOR to follow up with pt and her daughter on Thursday regarding DME and out of pocket cost quotes. SW will continue to follow. TAD Neal, TAD
[2016-11-02 09:23] LABS: INR 0.88 ratio
[2016-11-02] MEDS: Pantoprazole 40 mg ER24 Tablet PO SCH (09:46)
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
--- NOTE | 2016-11-02 18:31 | NUR ---
Pt and daughter worried that pt may be developing UTI d/t frequency of urination and decreased amount of output. Pt stating that she feels like her bladder is full when needing to get to BR, but then only has minimal output ~100cc at a time. Pt denying any pain with urination. Offered to bladder scan - post void Bladder scan revealed 0cc. Pt and daughter relieved and no longer worried about decreased urine output. Pt had also been NPO for ~3-4hours when this situation came about. Pt later able to have clear liquids at ~1330, tolerating. Care continues.
[2016-11-03] VITALS (10 sets, daily range): BP systolic 138–162; BP diastolic 63–71; PULSE 76–91; RESP 16–20; O2SAT 92–97
--- NOTE | 2016-11-03 03:42 | NUR ---
Respiratory Pt. had an episode of epistaxis during shift that was minor, and stopped within a few minutes with no major blood loss. Pt. is still stating 92% on 2 liters of oxygen. Will continue to monitor.
[2016-11-03 06:23] LABS: BASOPHILS % (AUTO) 0.6 % (0-3); EOSINOPHILS % (AUTO) 1.8 % (0-5); MONOCYTES % (AUTO) 8.8 % (4-12); Mean Corpuscular Hemoglobin 30.9 pg (27.0-35.0); Mean Corpuscular Volume 98.8 fL (81-100); Platelet Count 277 bil/L (150-400)
[2016-11-03 06:46] LABS: Magnesium 1.6 mg/dL (1.6-2.6); Phosphorus 3.5 mg/dL (2.5-4.9)
[2016-11-03] MEDS: Pantoprazole 40 mg ER24 Tablet PO SCH (08:00)
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
--- NOTE | 2016-11-03 11:03 | NUR ---
Social Work: Continued Discharge Planning D: Pt is on day 5 of hospitalization. SW followed-up with [facility] to determine if there was any PT availability at this time (as per last SW note). Isabella from [facility] said they can't take pt at this time because there are no PT appointments available in [place] for the next two weeks. SW spoke with pt and daughter about other HH choices. Choice list provided. Pt and daughter chose [facility]. SW made referral and gave access to [facility] for RN PT OT. F2F signed and in folder. [facility] will accept pt today for RN PT OT and was made aware of pt's likeliness to discharge today. SW confirmed that [facility] accept pt with pt and daughter in the room. SW also provided DME supplier list and quotes for a hospital bed through [employer]. SW informed daughter and pt that DME supplies will be private-pay and suggested family shop around [employer], [employer], and [employer] for the best travis. SW confirmed that insurance will not cover any DME supplies at this time because they are not deemed medically necessary. Pt and daughter agreeable to information and discharge plan. A: Pt for who RN PT OT has been deemed medically necessary. P: Pt to discharge home with daughter via POV and open [facility] RN PT OT. Pt and daughter provided DME supplier list and made aware of [id number] costs for DME supplies that aren't deemed medically necessary. Pt and daughter agreeable to plan. TAD Haynes
--- NOTE | 2016-11-03 11:07 | NUR ---
Social Work: Readiness for Discharge D: Pt is on day 5 of hospitalization. SW followed-up with [facility] to determine if there was any PT availability at this time (as per last SW note). Isabella from [facility] said they can't take pt at this time because there are no PT appointments available in [place] for the next two weeks. SW spoke with pt and daughter about other HH choices. Choice list provided. Pt and daughter chose [facility]. SW made referral and gave access to [facility] for RN PT OT. F2F signed and in folder. [facility] will accept pt today for RN PT OT and was made aware of pt's likeliness to discharge today. SW confirmed that [facility] accept pt with pt and daughter in the room. SW also provided DME supplier list and quotes for a hospital bed through [employer]. SW informed daughter and pt that DME supplies will be private-pay and suggested family shop around [employer], [employer], and [employer] for the best travis. SW confirmed that insurance will not cover any DME supplies at this time because they are not deemed medically necessary. Pt and daughter agreeable to information and discharge plan. A: Pt for who RN PT OT has been deemed medically necessary. P: Pt to discharge home with daughter via POV and open [facility] RN PT OT. Pt and daughter provided DME supplier list and made aware of [id number] costs for DME supplies that aren't deemed medically necessary. Pt and daughter agreeable to plan. TAD Haynes
--- NOTE | 2016-11-03 13:24 | DRSVH ---
PROCEDURE: CT ABDOMEN AND PELVIS WITHOUT CONTRAST ([id number]) INDICATIONS: Status post recent trauma with decreasing hematocrit. TECHNIQUE: Noncontrast 5 mm thick sections acquired from the diaphragms to the symphysis. 5 mm coronal and sagi ttal reformats were then performed. For radiation dose reduction, the following was used: automated exposure control, adjustment of mA and/or kV according to patient size. COMPARISON: None. FINDINGS: Image quality: There is motion artifact limiting evaluation. ABDOMEN: Lung bases: There is a moderate-sized hernia. Minimal bilateral pleural effusions are present with a ssociated mild compressive atelectasis. Heart size is normal. Solid organs: Liver and spleen are normal in size. Gallbladder demonstrates no calcified gallstones . Pancreas is normal in contours. There is thickening of the left adrenal gland without a definite discrete nodule. Kidneys demonstrate no hydronephrosis. Peritoneum and bowel: Unenhanced bowel loops demonstrate normal wall thickness and caliber. No free fluid or air. No discrete fluid collections to suggest a hematoma. Nodes and vessels: No retroperitoneal or mesenteric adenopathy by size criteria. Aorta and inferior vena cava are normal in caliber. Miscellaneous: No ventral hernias. No retroperitoneal hematoma identified. PELVIS: Genitourinary: Bladder wall thickness is normal. Miscellaneous: No inguinal hernias or adenopathy. Bones: No suspicious bony lesions. There is diffuse osteopenia. Mild superior endplate scalloping is noted at L2. There is multilevel moderate disc space narrowing throughout the lumbar spine with o steophytosis as well as vacuum disc phenomenon. There is also prominent facet arthropathy lower lumb ar spine. IMPRESSION: 1. No evidence of retroperitoneal or intraperitoneal hematoma. 2. Moderate size heterogeneity. 3. Minimal bilateral pleural effusions. Dictated by: Romeo Angel M.D. on 11/03/2016 at 13:08 Approved by: Romeo Angel M.D. on 11/03/2016 at 13:22
--- NOTE | 2016-11-03 14:44 | PCM.CHPMED ---
Subjective Date of Service: November 03, 2016 Primary Physician: Admitting Physician: Casandra Dover DO Primary Care Physician: Jay Jay Vinson MD Attending Physician: Casandra Dover DO Chief Complaint: Chief Complaint: Ground level fall and syncope History of Present Illness: GI consult note 76-year-old female history of CVA with recent endarterectomy, hyponatremia, hypertension, and COPD who presented to the ED for right shoulder pain after suffering ground-level fall. Patient hit her head on the kitchen table but denied any loss of consciousness. Patient did suffer a humeral neck fracture which was reduced using conscious sedation. With patient recommend that due to the patient's comorbidities she should attempt reduction, splinting, and immobilization prior to attempting surgery. During the patient's hospital stay her hemoglobin dropped from 11.1 to 6.8 where she underwent transfusion. Since that time the high as the patient's hemoglobin has been is 8.6, 2 days ago, and today she is at 7.9. Patient has a history of gastric and colonic AVMs from 2014 and was seen last spring by Dr. Jacob. Patient underwent [facility] endoscopy with recommendations for EGD and colonoscopy however this was not completed due to stroke and subsequent endarterectomy in 10/2015. Patient states that she has not had any abdominal pain, nausea, vomiting, hematochezia or hematemesis, and questionable melena as the patient is taking iron pills her stools tend to be formed, dark brown to black. She has Hemoccult positive. Currently the patient is off of Plavix but continues on aspirin. Review of Systems: See history of present illness PMH Past Medical History Chronic hyponatremia Adams's palsy Iron deficiency Anemia Thyroid nodule Hypertension COPD previously on home O2 Hiatal hernia/AVM/GERD UTI Anxiety Eczema PAD CVA with left sided weakness Bilateral carotid stenosis s/p endarterectomy of right side - 10/2015 Bedside Blood Glucose: 115 Surgical History right carotid endarterectomy Home Medications Albuterol Aspirin 81 mg Atorvastatin 40 mg Plavix 75 mg Diltiazem 30 mg Iron 325 mg Vitamin B complex was C Allergies: Coded Allergies: Sulfa (Sulfonamide Antibiotics) (Verified Allergy, Intermediate, NAUSEA, 04/27/16) Family History Family History Family history of HTN and CAD Social History Hx Alcohol Use: NoHx Substance Use: NoHx Tobacco Use: No Smoking Status: Former Smoker Living Arrangement: Alone Exam Vital Signs Vital Sign - Last Date Time Temp Pulse Resp B/P Pulse Ox O2 Delivery O2 Flow Rate FiO2 11/03/16 10:22 86 11/03/16 10:09 Supplement Oxygen 11/03/16 10:07 36.8 19 151/65 96 1.00 Intake and Output 11/02/16 11/02/16 11/03/16 Cumulative From/Thru 15:00 23:00 07:00 10/29/16 13:49 - 11/03/16 06:26 Intake Total 800 ml 300 ml 8039 ml Output Total 550 ml 550 ml 4595 ml Balance 250 ml -250 ml 3444 ml Intake Oral 800 ml 300 ml 4306 ml IV Total 3433 ml Packed Cells 300 ml Output Urine Total 550 ml 550 ml 4595 ml # Bowel Movements 1 General: Alert, Oriented X3, Cooperative Head: Normal Eyes: PERRLA, Other (conjunctiva normal) Mouth: Mucous Membr Moist/[place] Chest & Lungs: Chest Wall Normal, Clear to auscultation & percussion Cardiovascular: Exam Unremarkable, Regular Rate/Rhythm Abdomen: Non-tender, Non-distended, Normoactive bowel tones Musculoskeletal: Unremarkable Extremities: No cyanosis/clubbing/edma bilat Lab and Diagnostics Result Diagram: 11/03/16 0611/03/16 06 Assessment & Plan Assessment 76-year-old female with a history of gastric and colonic AVMs with acute decrease in hemoglobin following admission for a humeral neck fracture. Patient has numerous comorbidities which have dissuaded orthopedics from performing surgical correction of her humeral neck fracture. Patient's severe anemia was corrected with blood transfusions and currently she denies any symptoms of ongoing bleeding including nausea, vomiting, melena, or hematochezia. Patient's hemoglobin is now stable the last two hemoglobins being 7.7 and 7.9. Patient does not wish to have intervention performed while in the hospital, choosing to do this follow-up. Current recommendations of this patient had minimal blood draws, iron supplementation, and follow-up in the outpatient for colonoscopy as this is nonemergent at this point. Should the patient drop her hemoglobin below 7 again will reconsider doing a colonoscopy and EGD. Other consideration can be given to restarting Plavix in the hospital and performing a tagged red cell scan to look for active GI bleeding. If this is negative and patient should be able to be discharged on Plavix. In the meantime we recommend that the patient's Protonix be increased to 40 mg IV twice a day. This was discussed with the family at bedside and questions were answered. If patient is stable tomorrow morning can advance diet as tolerated. We will continue to follow the patient while in the hospital. Thank you for allowing us to participate in the care of this patient Problems: Pain Evaluation: Adequate Pain Control VTE Prophylaxis: Sub-Q Heparin (Unfractionated), SCDs VTE Mechanical Devices: Intermittant Pneumatic CD Resuscitation Status: CPR: Attempt Resuscitation Attending Statement pt seen and examined with resident physician agree with his H and P patient with history of iron deficiency anemia dating back several years had EGD and colonoscopy back [place] [address] [place]. She had AVM in stomach and colon that was treated with APC. She then was subsequently referred to me for capsule in 09/2015 which was normal. I had recommend ed repeat EGD and colon at that time. Patient however had a strole secondary to carotid artery occlusion and hence did not follow up for EGD and colonoscopy. Now asked to see for acute anemia however without overt bleeding. discussed risks and benefits of repeat endoscopy and as H/H stable without overt bleeding, patient and daughter prefer conservative approach and following labs and cont PPI. Additionally she has been off plavix for only 3 days, ideally prefer she be off 5-7 days before pursuing endoscopy for evaluation of anemia in the setting of no overt bleeding and stable H/H if however H/H should drop and or active bleeding then will pursue endoscopy. This was discussed with patient and daughter and they were agreeable. Tevin Rivas DO November 03, 2016 14:44 Margo Alba MD November 03, 2016 18:42
--- NOTE | 2016-11-03 17:50 | NUR ---
PSVT Per business office technician 5.7 second burst PSVT, HR 145. Pt not symptomatic at this time. K+ 4.6, Mag 3.5. Red Team notified, no new orders. Will continue to monitor with frequent rounds.
[2016-11-03] MEDS: Pantoprazole 4 mg/mL 10 mL Inj IVPUSH SCH (18:02)
--- NOTE | 2016-11-03 22:30 | NUR ---
Pain Pt c/o right arm pain. Given Tylenol. Arm elevated on pillow. She has a weak hand grasp. Her hand is warm and she has +sensation throughout. Pt rated her pain at a 3 The tylenol reduced her pain to a 1 Appears comfortable.
[2016-11-04 00:22] VITALS: BP 148/67; PULSE 75; RESP 20; O2SAT 95
[2016-11-04 06:10] VITALS: BP 150/75; PULSE 72; RESP 18; O2SAT 97
[2016-11-04 06:53] LABS: Magnesium 1.6 mg/dL (1.6-2.6); Phosphorus 3.6 mg/dL (2.5-4.9)
[2016-11-04 07:08] LABS: BASOPHILS % (AUTO) 0.7 % (0-3); EOSINOPHILS % (AUTO) 2.1 % (0-5); MONOCYTES % (AUTO) 10.4 % (4-12); Mean Corpuscular Hemoglobin 30.5 pg (27.0-35.0); Mean Corpuscular Volume 98.6 fL (81-100); Platelet Count 293 bil/L (150-400)
[2016-11-04 08:14] VITALS: BP 183/71; PULSE 84; RESP 18; O2SAT 92
[2016-11-04] MEDS: Pantoprazole 4 mg/mL 10 mL Inj IVPUSH SCH (08:17)
[2016-11-04 08:21] VITALS: PULSE 91; RESP 20; O2SAT 95
[2016-11-04] MEDS ORDERED: PANT40TA2 PO (09:49)
--- NOTE | 2016-11-04 09:55 | PCM.DIMED ---
Discharge Instructions Date of Service November 04, 2016 Dates of Hospitalization October 29, 2016 at 21:58 Discharge Diagnosis Discharge Diagnosis Acute blood loss anemia, source is humeral fracture, probable GIB given hx of AVM. intermittent episode of tachyarrhythmia, likely PSVT, spontaneously resolved Right comminuted humeral neck fracture from mechanical fall Medication Instructions Pain control with Tylenol as needed please note that Your anti-acid medicine, Protonix was increased to twice a day for temporarily. Please note that this is not ideal for alf treatment given side effect. Please follow up with your doctor and adjust medicine later. Diet Heart Healthy Activity Home Health Phyical Therapy Call your provider Shortness of breath, Bleeding Patient Instructions You were hospitalized with fracture on your arm from fall. You were also required transfusion for low red blood cells. You were monitored closely in the hospital. Please note that you were not recommended to have urgent endoscopy given no signs of active bleeding. Please monitor your symptoms closely, black or red stools, lightheadedness. If you do develop these symptoms, please hold aspirin and plavix and seek for medical help. Please continue home health service with RN, PT,OT Please continue Sling for arm support as indicated by PT, immobilization is required Follow-up plan Please follow up with your doctor in 2weeks Follow-up Provider: Jay Jay Vinson MD Follow-up with PCP in: 2 weeks Joann Mcadams MD November 04, 2016 09:55
--- NOTE | 2016-11-04 10:06 | PCM.PNMED ---
Subjective Date of Service November 04, 2016 Subjective GI progress note The patient did well with no tarry bowel movements. No nausea/vomiting or epigastric pain. Patient denies serious systems today. Exam Vital Signs Vital Sign - Last Date Time Temp Pulse Resp B/P Pulse Ox O2 Delivery O2 Flow Rate FiO2 11/04/16 08:21 91 20 95 Nasal Cannula 1.00 11/04/16 08:14 36.7 183/71 Intake and Output 11/03/16 11/03/16 11/04/16 Cumulative From/Thru 15:00 23:00 07:00 10/29/16 13:49 - 11/04/16 06:37 Intake Total 920 ml 200 ml 9159 ml Output Total 700 ml 400 ml 5695 ml Balance 220 ml -200 ml 3464 ml Intake Oral 920 ml 200 ml 5426 ml IV Total 3433 ml Packed Cells 300 ml Output Urine Total 700 ml 400 ml 5695 ml # Voids 3 3 # Bowel Movements 1 2 Exam General: Alert, Oriented X3, Cooperative Head: Normal Eyes: PERRLA, Other (conjunctiva normal) Mouth: Mucous Membr Moist/[place] Chest & Lungs: Chest Wall Normal, Clear to auscultation & percussion Cardiovascular: Exam Unremarkable, Regular Rate/Rhythm Abdomen: Non-tender, Non-distended, Normoactive bowel tones Musculoskeletal: Unremarkable Extremities: No cyanosis/clubbing/edma bilat IVs and Medications Medications Reviewed: Medications were reviewed in detail Lab and Diagnostics Result Diagram: 11/04/16 0533 11/04/16 0533 X-Rays, CTs and MRIs PROCEDURE: X-RAY RIGHT HUMERUS, ONE VIEW ([id number]) IMPRESSION: Improved alignment post closed postreduction. PROCEDURE: CT BRAIN WITHOUT CONTRAST ([id number]) IMPRESSION: 1. No acute intracranial abnormalities. 2. Cerebral volume loss and chronic microvascular ischemic changes PROCEDURE: X-RAY RIGHT SHOULDER, MINIMUM TWO VIEWS ([id number]) IMPRESSION: 1. Comminuted displaced and impacted humeral neck fracture. 12-lead ECG Sinus tachycardia heart rate of 103, no acute ST changes Assessment & Plan 72-year-old female with a history of AVMs presented with ground-level fall with a humeral neck fracture and acute blood loss concerning for GI bleed. Upon assessment does not appear that the patient has an ongoing GI bleed as there is no tarry stools, nausea/vomiting, or epigastric pain, which he typically has when she has GI bleeds. Patient's Hemoccult was positive but she is also on iron supplements and her stool is black but well formed and not tarry. Patient' s hemoglobin increased overnight to 8.5 from 7.9. Patient appears to be stable. Last year she was recommended to have a colonoscopy and EGD to further assess the AVMs are noted on Endoscopy, However, the Patient Had a Stroke since Had One End Arterectomy and Is Planning for a Second Endarterectomy. At this time just request that the patient follow-up with GI in 2 weeks. She should go home on Protonix 40 mg by mouth at least once a day. She should have hematochezia or melena please have her seek medical attention. Otherwise from the GI standpoint she is ready for discharge. Thank you for allowing us to participate in the care of this patient VTE Prophylaxis: Sub-Q Heparin (Unfractionated), SCDs VTE Mechanical Devices: Intermittant Pneumatic CD Resuscitation Status: CPR: Attempt Resuscitation Attending Statement pt seen and examined with resident physician long detailed discussion with patient and her daughter regarding risk of endoscopy , they deferred endoscopy for now. If however active bleeding then proceed with endoscopy. Tevin Rivas DO November 04, 2016 10:06 Margo Alba MD November 09, 2016 09:59
[2016-11-04 10:47] VITALS: PULSE 86
--- NOTE | 2016-11-04 12:39 | NUR ---
Discharge Patient discharged home. IV DC'd and intact. Sling in place. Discharge instructions given to daughter with no questions. Per Dr. Mcadams, patient has a Protonix prescription at home, no RX sent with patient. LINUX SYSTEM ENGINEER and daughter gathered all patient belongings. LINUX SYSTEM ENGINEER escorted patient out via W/C.
--- NOTE | 2016-11-04 13:01 | NUR ---
Social Work: Discharge D: EMR reviewed. Pt is on day 6 of hospitalization. Pt to discharge home today with daughter via POV. [facility] is open [facility]. SW confirmed discharge plan with pt and daughter in room. Pt and family agreeable to plan. SW will continue to follow. A: Pt for noa [facility] RN PT OT has been deemed medically necessary. P: Pt to discharge home with daughter today via POV and open [facility] for RN PT OT. SW notified [facility] of pt's discharge. TAD Haynes
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
== END 2016-11-04 13:00 | disposition home health service (06) | DRG 812 ==
LOC: EDBD 14:14 → SED 14:14 → OSC 21:58 → OBSVTOIN 21:58
PROVIDERS: ADMIT Internal Medicine; ATTEND Internal Medicine
PROC: 0PSFXZZ Reposition Right Humeral Shaft, External Approach (ICD-10-PCS; 2016-10-29)
PROC: 30233N1 Transfusion of Nonautologous Red Blood Cells into Peripheral Vein, Percutaneous Approach (ICD-10-PCS; principal; 2016-10-31)
DX: D62 Acute posthemorrhagic anemia (principal); S42.211A Unspecified displaced fracture of surgical neck of right humerus, initial encounter for closed fracture; E87.1 Hypo-osmolality and hyponatremia; I95.1 Orthostatic hypotension; I10 Essential (primary) hypertension; J44.9 Chronic obstructive pulmonary disease, unspecified; Z87.891 Personal history of nicotine dependence; W03.XXXA Other fall on same level due to collision with another person, initial encounter; Y92.010 Kitchen of single-family (private) house as the place of occurrence of the external cause; Z86.73 Personal history of transient ischemic attack (TIA), and cerebral infarction without residual deficits; I47.9 Paroxysmal tachycardia, unspecified

== ENCOUNTER 2016-11-17 17:32 | Inpatient (IN) | payer MEDICARE ==
[~2016-11-17] VITALS: Ht 152.4 cm; Wt 61.5 kg
[2016-11-17] VITALS (8 sets, daily range): BP systolic 90–166; BP diastolic 44–65; PULSE 82–115; RESP 24–28; O2SAT 89–95
[~2016-11-17 17:32] MED LIST changes: -ALBU8.5H4 IH; -LOSA50TA37 PO; -RANI300T4 PO
--- NOTE | 2016-11-17 18:05 | ED.REPORT ---
HPI-General Illness Date of Service November 17, 2016 ED Provider: Luigi Cortez MD Pt is a 76 y/o female w/ a hx of iron deficiency anemia, HTN, COPD on 2L home O2 , CVA w/ residual left sided weakness, bilateral carotid stenosis s/p endarterectomy on right presenting to the ED via EMS with her children c/o substernal chest pressure onset this morning. The patient was recently admitted October 29- of this year for a fall and for acute blood loss anemia related to a humeral fracture and suspected GI bleed thought to be from the gastric ascending colon and stomach per colonoscopy in August 2014. During recent admission she had a CT scan of the abdomen and pelvis which was essentially unremarkable along with CT of the brain which was unremarkable. XR of the right shoulder demonstrated comminuted, displaced, fracture of the humeral neck. She was seen by orthopedic surgery and felt that non-surgical treatment was indicated and she is being treated with sling and immobilization. She was discharged with plan to follow-up with [facility] orthopedics. In regards to her bleeding she was found to be occult blood positive per rectal exam and was given 3 units of PRBCs. GI was consulted during admission and given risks and benefits endoscopy was thought to be not indicated. Her Plavix was resumed for stroke prophylaxis and she was started on ASA with plan for endoscopy in the future if indicated. She was noted to experience intermittent asymptomatic PSVT during admission which was thought to not be remarkable. She was discharged home on November 04 to her home with 24/7 care with home health and family care. Last night, the family noticed she was experiencing nose and gum bleeding and thought that she may have aspirated some blood. They believe her symptoms are similar to when she came in previously with anemia requiring blood transfusion. She has been much more fatigued/somnolent recently compared to her normal mental status being able to speak to family coherently and quickly complete crossword puzzles. She has no history of dementia. They noticed she was 78% oxygen at home yesterday with some signs of shortness of breath. This morning she began to complain of substernal chest pressure and nausea. She wasn't able to go to a regular follow-up appointment and therefore has not had a blood draw in the past 2 weeks. At time of interview, she is 97% oxygen saturation on 2L of nasal cannula. Family denies fever, melena, vomiting, any other sites of bleeding, hematemesis. They noticed her stools were somewhat darker than normal but described as not melanotic or grossly bloody. At home, she is has 24/7 care with home health nurse, physical therapy, and her family. They believe she is receiving adequate care at home. Almost all of the history is obtained from the son and daughter who are very knowledgeable about her history and condition. Nursing Notes Stated Complaint: SHORTNESS OF BREATH, CHEST HEAVINESS Chief Complaint: Chest Pain Nursing Notes Reviewed: Yes Allergies: Coded Allergies: Sulfa (Sulfonamide Antibiotics) (Verified Allergy, Intermediate, NAUSEA, ) Scheduled Ascorbic Acid (Acerola C) 500 Mg Wafer 500 MG PO QAM Aspirin Chew (Aspirin Chew) 81 Mg Chew 81 MG PO DAILY Atorvastatin Calcium (Atorvastatin Calcium) 40 Mg Tablet 40 MG PO HS Calcium Carbonate (Calcium Carbonate) 200 Mg Tab.chew 200 MG PO BIDWM Clopidogrel (Clopidogrel) 75 Mg Tablet 75 MG PO DAILY Diltiazem (Diltiazem) 30 Mg Tablet 30 MG PO TID Ferrous Sulfate (Ferrous Sulfate) 325 Mg Tablet 325 MG PO DAILYWM Ketoconazole (Ketoconazole) 15 Gm Cream..g. 1 APPLIC TP DAILY 2% CREAM Pantoprazole DR (Protonix) 40 Mg Tablet 40 MG PO BID Vit B Comp/C/FA/Iron/Vit E (Vitamin B Complex Tablet) 1 Each Tablet 1 EACH PO DAILY Scheduled PRN Albuterol Neb Soln (Albuterol Neb Soln) 1.25 Mg/3 Ml Vial.neb 1.25 MG INHALATION Q6H PRN PRN For Shortness of Breath Loratadine (Claritin) 10 Mg Capsule 10 MG PO DAILY PRN PRN For Congestion General Time Seen by MD: 17:47 Chief Complaint Chest pain Hx Obtained From: Patient, Son, Daughter, EMS Arrived By: Ambulance Sudden in Onset?: No Onset Occurred: 9 - 12 hours ago Symptom Duration: Since onset Location: : Chest Quality: Heaviness, Pressure Severity: Current: Moderate Severity: Maximum: Moderate Similar Sx Previous: No Past Medical History Past Medical History Chronic hyponatremia Adams's palsy Iron deficiency Anemia Thyroid nodule Hypertension COPD on 2L home O2 Hiatal hernia/AVM/GERD UTI Anxiety Eczema PAD CVA with left sided weakness Bilateral carotid stenosis s/p endarterectomy of right side - 10/2016 Past Surgical History right carotid endarterectomy Family History Family history of HTN and CAD Smoking History Former Smoker Social History Alcohol Use: Denies alcohol use Drug Use: Denies drug use Other Social History: Good social support Ambulatory Status Independent Review of Systems Full Review of Systems Constitutional: Reports: Fatigue, Weakness - generalized, Denies: Chills, Fever Ears / Nose / Throat: Reports: Nose bleeding Respiratory: Reports: Shortness of breath, Denies: Non-productive cough GI: Reports: Nausea, Denies: Abdominal pain, Diarrhea, Hematemesis, Melena, Vomiting Hematologic: Reports Bleeding, Denies Petechiae Complete sys rev & neg: except as marked. Physical Exam Vital Signs Vital Signs Date Time Temp Pulse Resp B/P Pulse Ox O2 Delivery O2 Flow Rate FiO2 11/17/16 21:30 115 27 147/45 92 Venturi Mask 5 11/17/16 20:45 114 27 166/65 90 Venturi Mask 5 11/17/16 19:43 113 26 92 OxyMask 3 11/17/16 18:30 82 24 117/53 95 Venturi Mask 5 11/17/16 17:44 36.7 89 25 90/44 89 Room Air Initial VS: Reviewed, Vital signs abnormal General/Constitutional: Awake, Alert, Cooperative, Not toxic appearing Distress / Hydration: Positive: Distress mild Head / Eyes: Atraumatic, Normocephalic, PERRL ENT: Atraumatic, Airway patent, Mucous membranes moist Dried blood on lower lip Mild dry blood in right nares Respiratory / Chest: Breath sounds NL, Breath sounds = bilat, No rales, No rhonchi, No wheezing, No stridor Resp Distress / Stridor: Positive: Resp distress mild O2 sat 97% on 2L nasal cannula Cardiovascular: Heart rate NL, Regular rhythm, Heart sounds NL, No gallop, No murmurs, No rubs, Cap refill not delayed, Peripheral circulation NL Lower Ext Edema: Positive: Bilateral 1+ (2/3 way up to knees), Pitting Abdomen: Atraumatic, Soft, Non-tender, No guarding, No rebound, No distention Back: Full range of motion, Painless range of motion, Non-tender, No midline vertebral tend, No paraspinal tenderness Palm sized region of resolving ecchymosis about the right mid back Upper Extremities Upper Extremity / MS: No erythema, Neurologic intact, Vascular intact, No compartment syndrome, No clubbing/cyanosis Palpable deformity of the right proximal humerus with ecchymosis present. No signs of compartment syndrome Lower Extremity / Pelvis / MS: Atraumatic, Inspection NL, Full range of motion , Non-tender, No erythema, No deformity, Neurologic intact, Vascular intact No calf swelling or tenderness Skin: Warm, Dry, Intact Neurologic: Oriented X3, Speech NL, No motor deficits, No sensory deficits, Memory NL Psychiatric: Affect NL, Mood NL, Cognitive function NL, Judgment/insight NL Interpretation & Diagnostics Lab Results Interpretation Result Diagram: 11/17/16191911/17/161919 Test 11/17/16 19:20 11/17/16 19:31 White Blood Count 8.5th/mm3 (3.8-10.1) Red Blood Count 3.55mil/mm3 (3.90-5.20) Hemoglobin 11.1g/dL (12.0-15.6) Hematocrit 36.3% (35.0-46.0) Mean Corpuscular Volume 102.3fL (81-100) Mean Corpuscular Hemoglobin 31.3pg (27.0-35.0) Mean Corpuscular Hemoglobin Concent 30.6% (32.0-37.0) Red Cell Distribution Width 16.6% (12.3-15.4) Platelet Count 490bil/L (150-400) Neutrophils (%) (Auto) 82.7% (40-74) Lymphocytes (%) (Auto) 6.6% (14-46) Monocytes (%) (Auto) 10.1% (4-12) Eosinophils (%) (Auto) 0.2% (0-5) Basophils (%) (Auto) 0.2% (0-3) Sodium Level 126mEq/L (134-144) Potassium Level 4.8mEq/L (3.5-5.2) Chloride Level 83mEq/L (97-108) Carbon Dioxide Level 32mmol/L (18-29) Blood Urea Nitrogen 20mg/dL (8-27) Creatinine 0.60mg/dL (0.57-1.00) Estimat Glomerular Filtration Rate 140mL/min (>59) Glucose Level 90mg/dL (60-99) Calcium Level 9.2mg/dL (8.5-10.1) Magnesium Level 1.7mg/dL (1.6-2.6) Total Bilirubin 0.3mg/dL (0.0-1.2) Aspartate Amino Transf (AST/SGOT) 22U/L (0-50) Alanine Aminotransferase (ALT/SGPT) 21U/L (0-32) Alkaline Phosphatase 102U/L (25-165) Troponin T 0.027ug/L (0.0-0.011) Total Protein 6.2g/dL (6.4-8.4) Albumin 3.4g/dL (3.4-5.0) Hold Grijalva Top Tube Received (Received) Urine Color Yellow (YELLOW) Urine Appearance Clear (CLEAR,HAZY) Urine pH 5.5 (5.0-8.0) Urine Specific [place] 1.025 (1.003-1.035) Urine Protein 100mg/dL (NEG,TRACE) Urine Glucose (UA) Negativemg/dL (NEGATIVE) Urine Ketones 15mg/dL (NEGATIVE) Urine Occult Blood Negative (NEGATIVE) Urine Nitrite Negative (NEGATIVE) Urine Bilirubin Negative (NEGATIVE) Urine Urobilinogen Normalmg/dL (NORMAL) Urine Leukocyte Esterase Negative (NEGATIVE) Urine RBC 0-2/hpf (0-2) Urine WBC 0-5/hpf (0-5) Urine Epithelial Cells Few/hpf (NONE-MOD) Urine Crystals Amorphous urates (NONE Urine Bacteria None/hpf (NONE-FEW) Urine Hyaline Casts None/lpf (NONE) Urine Granular Casts None seen (NONE SEEN) Urine Waxy Casts None seen (NONE SEEN) Urine Red Blood Cell Casts None seen (NONE SEEN) Urine White Blood Cell Casts None seen (NONE SEEN) Urine Mucus Present (None Seen) Urine Trichomonas None seen (NONE SEEN) Urine Yeast None (NONE SEEN) Urinalysis Comment None Urine Culture Reflexed Not indicated ECG Interpretation ECG Interpretation: Sinus rhythm rate 76 Normal axis Normal intervals No ST or T wave changes Compared to prior dated 10/29/16 she is no longer tachycardic Time: 18:00 Interpreted by: ED physician Normal ECG Interpretation: No acute ischemic changes, Normal QRS, Normal axis, Normal intervals X-Ray Chest Interpretation Chest Xray Interpretation: IMPRESSION: 1. No acute process. 2. Large hiatal hernia. 3. No change in right humeral head/neck fracture. Dictated by: Jemima Bowden M.D. on 11/17/2016 at 18:59 Approved by: Jemima Bowden M.D. on 11/17/2016 at 19:01 View: Portable, 1 view Interpretation / Wet Read by: Interpret - Radiologist Re-Eval/Medical Decision Med Decision/Clinical Course Pt is a 76 y/o female w/ a hx of iron deficiency anemia, HTN, COPD on 2L home O2 , CVA w/ residual left sided weakness, bilateral carotid stenosis s/p endarterectomy on right presenting to the ED via EMS with her children c/o substernal chest pressure onset this morning, bleeding from her gums/nose and concern for aspiration. The patient was recently admitted October 29- of this year for a fall and for acute blood loss anemia related to a humeral fracture and suspected GI bleed thought to be from the gastric ascending colon and stomach per colonoscopy in August 2014. During recent admission she had a CT scan of the abdomen and pelvis which was essentially unremarkable along with CT of the brain which was unremarkable. XR of the right shoulder demonstrated comminuted, displaced, fracture of the humeral neck. She was seen by orthopedic surgery and felt that non-surgical treatment was indicated and she is being treated with sling and immobilization. She was discharged with plan to follow- up with [facility] orthopedics. In regards to her bleeding she was found to be occult blood positive per rectal exam and was given 3 units of PRBCs. GI was consulted during admission and given risks and benefits endoscopy was thought to be not indicated. Her Plavix was resumed for stroke prophylaxis and she was started on ASA with plan for endoscopy in the future if indicated. She was noted to experience intermittent asymptomatic PSVT during admission which was thought to not be remarkable. She was discharged home on November 04 to her home with 24/7 care with home health and family care. Last night, the family noticed she was experiencing nose and gum bleeding and thought that she may have aspirated some blood. They believe her symptoms are similar to when she came in previously with anemia requiring blood transfusion. She has been much more fatigued/somnolent recently compared to her normal mental status being able to speak to family coherently and quickly complete crossword puzzles. She has no history of dementia. They noticed she was 78% oxygen at home yesterday with some signs of shortness of breath. This morning she began to complain of substernal chest pressure and nausea. She wasn't able to go to a regular follow-up appointment and therefore has not had a blood draw in the past 2 weeks. At time of interview, she is 97% oxygen saturation on 2L of nasal cannula. Family denies fever, melena, vomiting, any other sites of bleeding, hematemesis. They noticed her stools were somewhat darker than normal but described as not melanotic or grossly bloody. At home, she is has 24/7 care with home health nurse, physical therapy, and her family. They believe she is receiving adequate care at home. Almost all of the history is obtained from the son and daughter who are very knowledgeable about her history and condition. Meds given: 4 mg Zofran, 1 L NS In the examination room the became hypoxic to the high 70s and oxygen was increased to 5L by Oxymax. Her vital signs were others harper stable and she was afebrile. Labs notable as below: CBC: No leukocytosis, HCT of 36.3 CMP: Hyponatremia with Na of 126 new from baseline, good renal function, CO2 of 32 near regular baseline, mildly elevated trop of 0.027, UA: No signs of UTI Chest x-ray: 1. No acute process. 2. Large hiatal hernia. 3. No change in right humeral head/neck fracture. EKG: Sinus rhythm rate 76 Normal axis Normal intervals No ST or T wave changes Compared to prior dated 10/29/16 she is no longer tachycardic Given unclear clinical picture we opted to obtain a CT angiogram of the chest was done straight and no pulmonary embolism. There was evidence of bilateral pleural effusions and infiltrates left greater than right. This has been discussed with the admitting hospitalist team and we have opted to observe versus start antibiotics at this moment as she is afebrile with no leukocytosis. She may need IV antibiotics as the clinical picture evolved. At this time, I feel that the patient requires admission for ongoing management of her hyponatremia and possible aspiration pneumonia. I certainly wonder if she may be aspirating and swallow study would likely be indicated as well. Patient discussed with admitting hospitalist and transferred in stable condition. Time of Eval: 21:00 Re-Evaluation/Progress Note: Pt rechecked. Informed pt of need for admission. Pt understands and agrees with plan for admission. All questions addressed. Consultation : Referral / Consult Name: Casandra Dover DO Consulted With: Hospitalist Call Returned at: 21:21 Clinical Research Spec: Will see patient, Agrees with eval, Agrees with plan, Accepts admit Counseled Regarding: Diagnosis, Lab results, Need for admission Discharge & Departure Primary Impression: Hypoxia Additional Impressions: Hyponatremia Aspiration pneumonia Aspiration pneumonia type: unspecified Laterality: bilateral Lung location : unspecified part of lung Qualified Code: J69.0 - Pneumonitis due to inhalation of food and vomit Fatigue Fatigue type: unspecified Qualified Code: R53.83 - Other fatigue Hiatal hernia Disposition: ADMITTED TO HOSPITAL Discharge Condition All VS Reviewed: Yes Condition: Stable Referrals: Jay Jay Vinson MD (PCP) Crit Care Except Billable Proc Time Spent: 75-104 minutes Services Performed: Patient management by me, Time spent at bedside, Reviewing test results, Reviewing imaging, Discussing patient care, Documentation in record, Time with fam/surrogate Scribe Attestation Portions of this note were transcribed by Michelet Reis. I, Dr. Hong personally performed the history, physical exam and medical decision-making; I reviewed and confirmed the accuracy of the information in the transcribed note. Signed by Karen Lindsay, 11/17/16 - 1830 copies to: Jay Jay Vinson MDstreeLuigi moore MD November 17, 2016 18:05 MICHELET REIS November 17, 2016 18:11
[2016-11-17] MEDS ORDERED: 0.9% Sodium Chloride 1,000 ML IV ONE (18:30)
[2016-11-17] MEDS ORDERED: Ondansetron 2 mg/mL 2 mL Inj IVPUSH ONE (18:30)
--- NOTE | 2016-11-17 19:02 | DRSVH ---
PROCEDURE: X-RAY CHEST ONE VIEW, PORTABLE ([id number]) INDICATIONS: chest pain TECHNIQUE: One view of the chest was acquired. COMPARISON: [facility], CR, XR HUMERUS 2VW RT, 11/11/2016, 14:22. [facility] l, CT, CT ABD PELVIS WO CON, 11/03/2016, 12:30. [facility], CR, XR CHEST 2VW, 11/01/2016, 14:41. FINDINGS: Surgical changes and devices: None. Lungs and pleura: No pleural effusions or pneumothorax. No change in mild diffuse interstitial pulmo nary opacity. Mediastinum: Large hiatal hernia is present. Mediastinal contours otherwise appear normal. Heart si ze is normal. Bones and chest wall: No change in markedly displaced right humeral head/neck fracture. Overlying sof t tissues appear unremarkable. IMPRESSION: 1. No acute process. 2. Large hiatal hernia. 3. No change in right humeral head/neck fracture. Dictated by: Jemima Bowden M.D. on 11/17/2016 at 18:59 Approved by: Jemima Bowden M.D. on 11/17/2016 at 19:01
[2016-11-17] MEDS ORDERED: Albuterol-Ipratropium 3 mL Inhalation Solution NEB ONE (19:10)
[2016-11-17 19:39] LABS: BASOPHILS % (AUTO) 0.2 % (0-3); EOSINOPHILS % (AUTO) 0.2 % (0-5); MONOCYTES % (AUTO) 10.1 % (4-12); Mean Corpuscular Hemoglobin 31.3 pg (27.0-35.0); Mean Corpuscular Volume 102.3 fL (81-100); NEUTROPHILS % (AUTO) 82.7 % (40-74); Platelet Count 490 bil/L (150-400)
[2016-11-17] MEDS ORDERED: LORA10CA PO (19:45)
[2016-11-17 19:49] LABS: APPEARANCE,URINE CLEAR (CLEAR,HAZY); COLOR,URINE YELLOW (YELLOW); OCCULT BLOOD,URINE NEGATIVE (NEGATIVE); PH,URINE 5.5 (5.0-8.0); UROBILINOGEN,URINE NORMAL (NORMAL)
[2016-11-17 20:00] LABS: Magnesium 1.7 mg/dL (1.6-2.6); TROPONIN T 0.027 ug/L (0.0-0.011)
[2016-11-17] MEDS ORDERED: Alum-Mag Hydrox-Simeth 30 mL Suspension PO PRN (21:00)
[2016-11-17] MEDS ORDERED: Ondansetron 2 mg/mL 2 mL Inj IVPUSH PRN (21:00)
[2016-11-17] MEDS ORDERED: Furosemide 10 mg/mL 2 mL Inj IVPUSH ONE (23:45)
[2016-11-18] VITALS (12 sets, daily range): BP systolic 90–127; BP diastolic 45–72; PULSE 82–94; RESP 16–22; O2SAT 96–100
--- NOTE | 2016-11-18 00:01 | PCM.HPMED ---
Subjective Date of Service November 17, 2016 Primary Provider: Admitting Physician: Casandra Dover DO Primary Care Physician: Jay Jay Vinson MD Attending Physician: Casandra Dover DO Admit Status: From the Emergency Department Chief Complaint: Hyponatremia, hypoxia History of Present Illness: Ms. Beach is a 76 -year-old female with past medical history of hyponatremia, hypertension, COPD on 2 L home O2, CVA with residual left-sided weakness, underwent deficiency anemia bilateral carotid artery stenosis status post endarterectomy who presented to the ED via EMS secondary to decreased mental status and increased oxygenation demands. Of note patient also reported to EMS personnel in route to the hospital she was having substernal chest pressure though this was new information to her daughter who is her caregiver and consistently by her side. She states she did not complain of any chest pressure or pain to her today or in the recent past. An additional concern for the patient's daughter is a slow oral bleed of the buccal mucosa she attributes to home ASA and Plavix. She was recently admitted to [facility] 10/29/2016 to 2016 secondary to fall and acute blood loss anemia related to humeral fracture and a suspected GI bleed. Orthopedics followed patient throughout this last admit, patient was found to have a comminuted displaced fracture of her from oral neck which was managed with nonsurgical treatment. She also was found to have occult blood per rectal exam, GI followed patient for previous hospital admission as well and received 3 units of PRBCs during admission. She did not receive endoscopy and Plavix was resumed secondary to stroke prophylaxis as well as ASA with plan for future endoscopy. Patient's daughter present through interview, patient mostly nonverbal and unable to answer questions appropriately. Per patient's daughter last night family noticed that she began to bleed from her nose and her gums and was concerned for aspiration. There are also concern for an increased and her fatigue and somnolence compared to her normal mental status, with no history of dementia. Daughter states that she does behave this way when her sodium is low. She has had past episodes of hyponatremia and her daughter always has sodium levels that are lower than normal requiring her to drink salted water at home. Per daughter she states that patient most likely has been drinking regular water without the addition of salt to it and her current mental status behavior is consistent with past episodes of hyponatremia. Patient's daughter states that patient has been urinating more frequently, as frequent as every 2 hours per night though with decreased output. She is also noticed an increase in her lower extremity edema. Patient's daughter also states patient has had an increase in her oxygenation demand, she normally is on 2 L home O2 though she was satting at 78% yesterday with some signs of shortness of breath. Daughter denies any fever, vomiting, melena or any other signs of bleeding, states stools have been somewhat darker than normal but not bloody in appearance. She does receive 24 7 home care with nurse as well as continual family presents and has not been outside of direct observational status since previous hospital discharge. Patient's daughter adamantly denies any possibility of ground-level fall or head trauma. A comprehensive review of systems was conducted with the patient and found to be negative except as above in the history of present illness. In the ED patient given 1 L normal saline, 4 mg Zofran. EKG showed sinus rhythm rate of 76 with normal axis and normal intervals no ST or T-wave abnormalities. CT angiogram chest showed no evidence of PE though did show bilateral pleural effusions and infiltrates left greater than right, some concern for aspiration. Patient had no leukocytosis and was afebrile. Hemoglobin 11.1, platelets 490. Urinalysis showed no evidence of infection. Allergies Coded Allergies: Sulfa (Sulfonamide Antibiotics) (Verified Allergy, Intermediate, NAUSEA, ) Home Medications Ascorbic Acid (Acerola C) 500 Mg Wafer 500 MG PO QAM Aspirin Chew (Aspirin Chew) 81 Mg Chew 81 MG PO DAILY Atorvastatin Calcium (Atorvastatin Calcium) 40 Mg Tablet 40 MG PO HS Calcium Carbonate (Calcium Carbonate) 200 Mg Tab.chew 200 MG PO BIDWM Clopidogrel (Clopidogrel) 75 Mg Tablet 75 MG PO DAILY Diltiazem (Diltiazem) 30 Mg Tablet 30 MG PO TID Ferrous Sulfate (Ferrous Sulfate) 325 Mg Tablet 325 MG PO DAILYWM Ketoconazole (Ketoconazole) 15 Gm Cream..g. 1 APPLIC TP DAILY 2% CREAM Pantoprazole DR (Protonix) 40 Mg Tablet 40 MG PO BID Vit B Comp/C/FA/Iron/Vit E (Vitamin B Complex Tablet) 1 Each Tablet 1 EACH PO DAILY PMH . Chronic hyponatremia Adams's palsy Iron deficiency Anemia Thyroid nodule Hypertension COPD on 2L home O2 Hiatal hernia/AVM/GERD UTI Anxiety Eczema PAD CVA with left sided weakness Bilateral carotid stenosis s/p endarterectomy of right side - 10/2016 Surgical History right carotid endarterectomy Family History Family history of HTN and CAD Social History Hx Alcohol Use: No Hx Substance Use: No Hx Tobacco Use: No Smoking Status: Former Smoker Living Arrangement: with Family Exam Vital Signs Vital Sign - Last Date Time Temp Pulse Resp B/P Pulse Ox O2 Delivery O2 Flow Rate FiO2 11/17/16 23:18 108 11/17/16 22:41 26 136/62 92 Venturi Mask 5 11/17/16 17:44 36.7 Exam General: Lying in hospital bed with thoracic mass in place, no acute distress, well-developed response to voice voice though . Answers to questions HEENT: Normocephalic, atraumatic. External ears without defect. Pupils equal, round, and reactive to light and accommodation. Anicteric sclerae, moist conjunctivae, and no lid lag. Oropharynx free of erythema and cobble stoning with moist mucosa. Dried blood present on the lips and tongue, no evidence of active bleeding sites. Dried blood in right nare. Neck: Supple with full range of motion. No jugular venous distension. No bruits. No lymphadenopathy or thyromegaly. Cardiovascular: Regular rate and rhythm, soft blowing systolic murmur Pulmonary: Clear to auscultation bilaterally with no crackles, wheezes, or rhonchi. Normal respiratory effort with no use of accessory muscles. Abdomen: Soft nontender to palpation 4 quadrants, bowel tones present. Extremities: Right upper extremity in sling and swath, with visible ecchymosis shoulder area, palpable deformity of right proximal humeral humerus. Bilateral lower extremity edema pitting to mid tibial area Back: Large area of ecchymosis in the right mid back area Skin: Normal temperature, turgor, and texture. Neurological: Cranial nerves grossly intact. Normal muscle strength, tone, and bulk. Reflexes, coordination, and sensory function within normal limits. No known gait impairment. Psychiatric: Normal mood and affect. Alert and oriented to person, place, and time. Lab and Diagnostics Result Diagram: 11/17/16191911/17/161919 X-Rays, CTs and MRIs . X-RAY CHEST ONE VIEW, PORTABLE IMPRESSION: 1. No acute process. 2. Large hiatal hernia. 3. No change in right humeral head/neck fracture. Dictated by: Jemima Bowden M.D. on 11/17/2016 at 18:59 Assessment & Plan 76 female with past medical history of chronic hyponatremia, COPD on home O2, CVA, bilateral carotid stenosis s/p recent endarterectomy admitted for hyponatremia, hypoxia and encephalopathy. Hypercapnic hypoxic respiratory failure, acute, POA -Patient with history of COPD with likely undiagnosed AXEL -Intermittent desaturation at home and while in the ED, baseline oxygen 2L -ABG completed following admission pH 7.053, pCO2 139, pO2 85.9, HCO3 36.9 -CT angio showed bilateral pleural effusions and infiltrates left greater than right -Intubated following admission with transfer from [facility] to CCU status -1 amp bicarb given prior to intubation Acute on chronic hyponatremia. Present on admission. Ongoing - Per patient's daughter this is been ongoing for the last 15 years, daughter states no diagnosis given - Her baseline sodium said to be 130-133, she regularly drinks salted water - reported not been taking this over the last few days - Sodium level in ED 126 - Given 1 L IV normal saline in the ED - Monitor sodium levels closely - Serum & urine osmolality pending - Moore cath secondary to reported decreased urinary output and accurate record of I's and O's Metabolic encephalopathy, acute, POA -unclear etiology -potentially associated with hyponatremia, possible pain medications, elevated CO2 levels on presentation, occult infection (recent aspiration event) -CT head negative Possible aspiration, present on admission. Ongoing - Concern for aspiration of blood secondary to recent oral and nasal bleed - Pro calcitonin pending - piperacillin-tazobactam initiated - Held Plavix/ASA secondary to daughter's preference and concern for ongoing oral bleeding, AM team to discuss with patient's daughter risk benefits of medication continuation (plavix was recently restarted) Leukocytosis, acute, POA -concern for acute infection - most likely PNA given history of recent aspiration -treatment as above COPD. has on admission. Ongoing - Not with acute COPD exacerbation - Albuterol ipratropium q4hr PRN Macrocytic Anemia. Present admission. Ongoing - Hemoglobin/hematocrit 11.1/36.6 - History of GI AVM however macrocytic, - B12 and folate pending - Coags pending - Stool guaiac pending - Continue to monitor History CVA with left-sided weakness. Is in remission. Ongoing - Patient does not show any signs or symptoms of repeat injury - Swallow eval when appropriate Hyperlipidemia. Present on admission. Ongoing - restart statin when appropriate Hypertension. Present on admission. Ongoing - Held home Diltiazam pending swallow eval - Current blood pressure 136/62 GERD. Present on admission. Ongoing - Held home Protonix by mouth - Protonix IV Patient Status: Patient was admitted under inpatient status with expected length of stay greater than two midnights due to severity of presenting symptoms , risk of adverse event, and complexity of treatment plan. Pain Evaluation: Adequate Pain Control VTE Prophylaxis: Sub-Q Heparin (Unfractionated) Resuscitation Status: CPR: Attempt Resuscitation Time spent 76 minutes of critical care time spent with patient assessment, management and plan development Attending Statement The patient was seen and examined together with house staff on 11/17/2016 and I have added additional information to the note above. REGLA GANNON DO November 18, 2016 00:01 Casandra Dover DO November 18, 2016 03:05
[2016-11-18] MEDS ORDERED: Albuterol 1.25 mg/3 mL Inhalation Solution INHALATION PRN (00:25)
--- NOTE | 2016-11-18 01:10 | NUR ---
Admission Pt arrived from ER to [facility] # [id number] approx at 2250 accompanied by her daughter. Admission assessment completed with assistance from pts daughter. Pts daughter at the bedside providing support and comfort. Pt appears drowsy. She wakes up occasionally. Resident DO at the bedside assessing pt. Daughter was answering questions. Received order to insert Moore cath and hold Lasix at this time. Pt was taken down to CT to obtain head CT. VSS. SPO2 mid 90s on venturi-mask at 5 L. Will continue to monitor.
--- NOTE | 2016-11-18 02:23 | ABG ---
DateTimeAnalyzed 02:18:00 -_ pH ____7.053 - 7.350 7.450 pCO2 139 -mmHg 35.0 45.0 pO2 ___85.9__ -mmHg 69.0 116 HCO3- ___36.9__ -mmol/L 22.0 26.0 ABE ____2.5__ -mmol/L -2.0 2.0 tHb ___11.1__ -g/dL O2Hb ___90.5__ -% COHb ____2.2__ -% MetHb ____1.2__ -% sO2 ___93.7__ -% FIO2 ___40.0__ -% Drawn By blf - Date/Time Notified____ 02:23:00 -_ Spontaneous_RR ___20.0__ -b/min Liter_Flow ____5.0__ -L/min Oxygen Device 1 _OXY DAVIN - Notified By blf - Notified Whom ___DR. SULLENBERGER,MARGIE - B 756 -mmHg tO2 ___14.3__ -Vol% Leonel test _Positive -
[2016-11-18] MEDS ORDERED: Sodium Bicarb (50 mEq) 8.4% 1 mEq/mL 50 mL Syringe ONE (02:30)
[2016-11-18 02:35] LABS: BASOPHILS % (AUTO) 0.1 % (0-3); EOSINOPHILS % (AUTO) 0.1 % (0-5); MONOCYTES % (AUTO) 10.3 % (4-12); Mean Corpuscular Hemoglobin 31.5 pg (27.0-35.0); Mean Corpuscular Volume 105.5 fL (81-100); NEUTROPHILS % (AUTO) 86.1 % (40-74); Platelet Count 455 bil/L (150-400)
[2016-11-18] MEDS: fentaNYL 2,500 mCg/250 mL 2,500 MCG in IV Premix 1 EACH IV SCH ×2 (02:57→07:08)
[2016-11-18] MEDS ORDERED: Piperacillin-Tazo 3.375 Gm Inj 3.375 GM in Dextrose 5% Minibag Plus 50 ML IV SCH (03:00)
[2016-11-18 03:13] LABS: Magnesium 1.5 mg/dL (1.6-2.6)
[2016-11-18 03:14] LABS: TROPONIN T 0.024 ug/L (0.0-0.011)
[2016-11-18] MEDS ORDERED: Albuterol-Ipratropium 3 mL Inhalation Solution NEB PRN (03:30)
[2016-11-18] MEDS ORDERED: Piper-Tazo 3.375 Gm/50 mL D5W Minibag Plus - Q8H over 4 hrs IV ONE ×2 (03:30)
--- NOTE | 2016-11-18 03:30 | NUR ---
Respiratory / Intubation/ transfer to CCU Pt appears somnolent and difficult to arouse. Attending physician and resident at the bedside assessing pt. Ordered ABGs. Results show respiratory acidosis due to Hypercapnia. Received verbal order to admin one amp of Bicarb IVP. Pt was transferred to CCU for urgent intubation. Pt tolerated procedure well. VSS. Several attempts to insert OG tube failed. Dr. Almaraz aware. Report given and care transferred to Norberto Dailey RN at the bedside. Pts daughter at the bedside providing support and comfort.
[2016-11-18 03:51] LABS: INR 1.02 ratio
--- NOTE | 2016-11-18 04:26 | ABG ---
DateTimeAnalyzed 04:21:00 -_ pH ____7.365 - 7.350 7.450 pCO2 ___63.3__ -mmHg 35.0 45.0 pO2 ___60.0__ -mmHg 69.0 116 HCO3- ___35.3__ -mmol/L 22.0 26.0 ABE ____8.8__ -mmol/L -2.0 2.0 tHb ___10.0__ -g/dL O2Hb ___90.0__ -% COHb ____2.6__ -% MetHb ____1.0__ -% sO2 ___93.4__ -% FIO2 ___35.0__ -% PRVC 18 - PEEP ____5.0__ -cmH2O Vt __350.0__ -L Drawn By blf - Date/Time Notified____ 04:25:00 -_ Spontaneous_RR ___18.0__ -b/min Oxygen Device 1 VENTILATOR - Notified By blf - Notified Whom FERNY NORMAN RN -____ B 756 -mmHg tO2 ___12.7__ -Vol% Leonel test N/A -
[2016-11-18] MEDS: Propofol Inj 1,000,000 MCG in IV Premix 1 EACH IV SCH ×2 (04:27→07:08)
[2016-11-18] MEDS ORDERED: 0.9% Sodium Chloride 1,000 ML IV SCH (04:35)
[2016-11-18] MEDS: Chlorhexidine 0.12% 15 mL Oral Solution MT SCH ×5 (05:16→20:22)
--- NOTE | 2016-11-18 05:28 | NUR ---
Sedation/OG: several attempts made to insert OG tube without success. Dr Dover was notified of difficulty pass OG. Pt restless at times and hypotensive propofol was titrated for low BPs and restlessness. Tele remains SR.
--- NOTE | 2016-11-18 05:49 | PCM.EDPN ---
ED Note Date of Service November 18, 2016 Procedures Intubation : Intubation Procedure: Called urgently by Dr. Dover, hospital service, because of respiratory failure and PCO2 of 139. Potassium is very mildly elevated at 4.8. Patient is currently being ventilated with bag valve mask by RT with good O2 sats at 100% range. She was intubated by Dr. Tuan Grijalva, resident, under my direct supervision with a 7.0 ET tube. Tube position was confirmed with direct visualization of the cords, bilateral chest rise, good fogging of the tube, and good color change of the CO2 colorimeter. Chest x-ray is unremarkable. Her care is being turned back over at change of shift to Dr. Dover. Procedure Performed by: ED physician, ED resident Consent / Setup / Site Prep: No consent - emergent, Time-out performed, Oxygen administered, Pulse oximeter applied, vehicle monitor technician applied, Hand hygiene observed, Stand sterile technique, Removed dentures (removed earlier) Patient Position: Head extended Blade / ET Tube / Route: Mac, ET tube cuffed (7.0), Route: oral Procedural Sedation/Analgesia: Sedation: Etomidate Neuromuscular Agent: Succinylcholine ET Confirmation: Direct visualization, End tidal CO2 device, CXR, Rising O2 sat Secured / Marked: ET tube device Complications: None Post-Procedure: Condition improved Cecilio Armenta MD November 18, 2016 05:49
--- NOTE | 2016-11-18 05:57 | PCM.PROC ---
Procedure Note Date of Service: November 18, 2016 Pre Procedure Diagnosis: Respiratory distress Acute hypercarbic respiratory failure Post Procedure Diagnosis: Endotracheal intubation secondary to acute hypercarbic respiratory failure Procedure: Endotracheal intubation Provider and Stenographic Court Reporter: Attending physician: Dr. Cecilio Armenta M.D. Resident physician: Dr. Tuan Gannon D.O. R1 Indication for Procedure: Decreased respiration rate with increased pCO2 and pH seen on ABG Procedure Details: The patient was placed in a flat position. Sedation was obtained using succinate , and additionally with Etomidate. The patient was easily ventilated using an ambu bag. The MAC 3 BLADE was used and inserted into the oropharynx at which time there was a Grade 1 view of the vocal cords. A 7.0-greek endotracheal tube was inserted and visualized going through the vocal cords. The stylette was removed. Colorimetric change was visualized on the CO2 meter. Breath sounds were heard in both lung martinez equally. Attending & Resident was present for the entire procedure. A chest x-ray was ordered to assess for pneumothorax and verify endotracheal tube placement. The patient tolerated the procedure well and there were no complications. TUAN GANNON DO November 18, 2016 05:47
[2016-11-18 06:28] LABS: BASOPHILS % (AUTO) 0.4 % (0-3); EOSINOPHILS % (AUTO) 0.1 % (0-5); MONOCYTES % (AUTO) 12.7 % (4-12); Mean Corpuscular Hemoglobin 31.3 pg (27.0-35.0); Mean Corpuscular Volume 102.4 fL (81-100); NEUTROPHILS % (AUTO) 80.9 % (40-74); Platelet Count 451 bil/L (150-400)
[2016-11-18 06:44] LABS: TROPONIN T 0.026 ug/L (0.0-0.011)
[2016-11-18] MEDS ORDERED: Pantoprazole 4 mg/mL 10 mL Inj IVPUSH SCH (07:30)
--- NOTE | 2016-11-18 08:45 | DRSVH ---
PROCEDURE: X-RAY CHEST ONE VIEW, PORTABLE ([id number]) INDICATIONS: POST INTUBATION TECHNIQUE: One view of the chest was acquired. COMPARISON: , CR, XR CHEST 2VW, 11/01/2016, 14:41. , CR, XR CHEST 1VW (PORTABLE), 11/17/2016, 18:33. FINDINGS: Surgical changes and devices: ETT tip projected 2.6 cm above the lashon. Lungs and pleura: Interstitium is prominent and medial bibasilar airspace opacities are present. No pneumothorax. Mediastinum: Mediastinal contours appear normal. Heart size is normal. Bones and chest wall: No change in markedly displaced right humeral head/neck fracture. IMPRESSION: 1. ETT tip projected 2.6 cm above the lashon. 2. Interstitial densities present suspicious for mild edema and bibasilar airspace opacities consiste nt with patchy pulmonary edema versus atelectasis or pneumonia. Correlate clinically. Dictated by: Samir Chung RRA Interpreted: Neelam Miller MD on 11/18/2016 at 8:41 Transcribed by: SEVEN on 11/18/2016 at 8:44 Approved by: Neelam Miller MD, PhD on 11/18/2016 at 11:16
--- NOTE | 2016-11-18 09:12 | DRSVH ---
PROCEDURE: CT ANGIO CHEST PULMONARY EMBOLISM ([id number]) INDICATIONS: assess for PE TECHNIQUE: After the administration of intravenous contrast, 2 mm thick sections acquired from the pulmonary api patricia to the posterior costophrenic angles. 3-dimensional maximum intensity projection (MIP) coronal a nd sagittal reformats were then acquired through the thorax. For radiation dose reduction, the follo wing was used: automated exposure control, adjustment of mA and/or kV according to patient size. COMPARISON: None. FINDINGS: Image quality: Excellent. Pulmonary arteries: Pulmonary arteries are normal in size, and demonstrate no intraluminal filling d efects to suggest central pulmonary embolism. Lungs and pleura: Small bilateral pleural fluid collections noted. Consolidation at the lung bases bi laterally likely represent atelectasis or pneumonia... Bilateral lung emphysematous changes noted. N o pleural effusions or pneumothorax. Central and peripheral airways are patent. Mediastinum: Heart size is normal, without pericardial effusion. Atherosclerotic calcifications are noted in the aorta, great vessels and the coronary vasculature. No mediastinal or hilar adenopathy. Thoracic aorta is normal in caliber and enhancement. Esophagus is normal in caliber, without hiatal hernia. Bones and chest wall: No suspicious bony lesions. Ribs and thoracic spine appear intact throughout. Chronic appearing T4, T5, T6 and T7 compression fracture is noted. Thyroid gland is within normal li mits. No axillary or supraclavicular adenopathy. Abdomen: Large hiatal hernia noted. Visualized upper abdominal solid organs appear normal in the ear ly arterial phase of enhancement. IMPRESSION: 1. No pulmonary embolus. 2. Small bilateral pleural fluid collections. 3. Bibasilar lung consolidation left greater than right which could represent atelectasis or pneumoni a. Please correlate with clinical and laboratory data. 4. Atherosclerosis including the coronary vasculature. 5. Large hiatal hernia. Dictated by: Neelam Miller MD, PhD on 11/18/2016 at 8:58 Approved by: Neelam Miller MD, PhD on 11/18/2016 at 9:10
[2016-11-18] MEDS: Heparin 5,000 Unit/mL Inj SUBQ SCH ×2 (10:12→17:09)
--- NOTE | 2016-11-18 10:27 | DRSVH ---
PROCEDURE: CT BRAIN WITHOUT CONTRAST ([id number]) INDICATIONS: encephalopathy TECHNIQUE: Noncontrast 4.5 mm thick angled axial sections acquired from the foramen magnum to the vertex, with c oronal reformats. COMPARISON: [facility], CT, CT BRAIN WO CON, 04/27/2016, 21:49. [facility], MR, MR STROKE PROTOCOL, 04/28/2016, 12:27. [facility], CT, CT BRAIN WO CON, 10/29/2016, 17:19. FINDINGS: Image quality: Limited by motion artifact. CSF spaces: Basal cisterns are patent. No extra-axial fluid collections. The ventricles are symmet samina in size and shape. Brain: No intracranial bleeds or masses. There is cerebral volume loss for age, with resultant vent ricular and sulcal prominence. Chronic, small, right frontal, right parietal and right occipital infa rcts noted. There are periventricular and deep white matter chronic small vessel ischemic changes. T here is intracranial internal carotid artery atherosclerosis. Skull and face: Calvarium and visualized facial bones appear intact, without suspicious lesions. Sinuses: Visualized sinuses and mastoids are clear. IMPRESSION: No acute intracranial disease process. Dictated by: Neelam Miller MD, PhD on 11/18/2016 at 10:21 Approved by: Neelam Miller MD, PhD on 11/18/2016 at 10:25
--- NOTE | 2016-11-18 10:51 | NUR ---
NUTRITION ASSESSMENT: ASSESS: Pt is a 76yo F admitted to CCU for hypoxia and hyponatremia. Currently vented and sedated. NPOx1 day. Plan for echo today. Per RN notes, OGT was unable to be placed overnight. PMHX: chronic hyponatremia, bells, palsy, anemia, HTN, COPD, CVA LABS: Reviewed. Na 132, Cl 86, CO2 31, Alb 3.1 MEDS: Reviewed. Fentanyl, propofol GI: 0 BM yet SKIN: Jayce 10, wound consult pending CURRENT WTS: 59.6kg, BMI 25.7kg/m2 DIET: NPOx1 EST. NEEDS: vent Kcals: 1190-1490kcal/day (20-25kcal/kg) Pro: 90-110g/day (1.5-1.8g/kg) Fluids: 1490-1785ml/day (25-30ml/kg) NUTRITION DIAGNOSIS: 1.) Inadequate oral intake related to decreased ability to consume sufficient energy as evidenced by current NPO status NUTRITION INTERVENTION: 1.) Will continue to monitor NPO status. If pt continues to be vented, recommend start TF of Jevity 1.5 @ 10ml/hr. If tolerated, advance by 10ml q 6 hrs until reach goal rate of 45ml/hr to provide 1485kcal and 64g pro. (100% kcal and 71% pro needs) 2.) Adjust goal rate based on daily propofol. MONITOR / EVAL: NPO, wt, GI, labs, nutrition support?, POC, nutrition status. Will continue to monitor per high nutrition risk guidelines.
--- NOTE | 2016-11-18 11:14 | NUR ---
Palliative Care Palliative Care received verbal order from Dr Aleman 11/18/16 to assist with goals of care. Patient was admitted 11/17/16. Alek Marj (daughter/POA) [phone] Palliative Care to follow. Chelsie Kate
--- NOTE | 2016-11-18 11:52 | PCM.CONPAL ---
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 Also noted on admission CT scan of chest to have bilateral infiltrates suggesting pneumonia versus atelectasis. Palliative medicine consult to assist in determination of goals of care I have placed a records request to [facility] for records regarding her hospitalization there in 06/06 for endarterectomy. Consider further discussion with neurosurgery/neurology regarding her antiplatelet therapy- given her history of GI bleeds, recurrent anemia, etc. dual antiplatelet therapy appears to be greater risk than benefit at this time. Summary of palliative recommendations: -Symptom management (Pain/other)- appears comfortable/sedated at this time. Continue management per medical/critical care teams -DPOA/Advanced Directives/POLST- no prior POLST. Daughter Alek identified as POA. Discussed her understanding of the patient's wishes, as well as family wishes for aggressive care- at this time all are in agreement that they would want to continue aggressive care, though noted that the patient would not want to be maintained long-term on machines if there is no meaningful hope of survival. Palliative medicine will continue to follow and I anticipate discussions will evolve in the coming days. Will plan on helping patient and family generate a POLST reflecting their wishes at eventual time of discharge. Patient's daughter does have insight and understanding into the patient's deterioration over the last 6-9 months, as well as the complexity of her multiple medical conditions, and recognizes that she may be approaching end- stage. Up until this time, however, patient and family have continued to hope that with her surgery and other medical treatment that she might return to her baseline of 6-9 months ago. -Family/emotional support- excellent support from her family members in the community Patient Goals: 1. Patient's family wants to be told the truth about her illness, even if it is unpleasant. 2. Patient's family would like to be told prognosis when it can be predicted, to better guide treatment decisions. 3. Patient would choose quality of life over quantity of life, and defines quality as being functional/not bedbound or tied to machines. Additional Medical Diagnoses with primary management by Hospitalist team include : Hypercapnic hypoxic respiratory failure, acute, POA Acute on chronic hyponatremia. Present on admission. Ongoing Metabolic encephalopathy, acute, POA Possible aspiration, present on admission. Ongoing Leukocytosis, acute, POA COPD. has on admission. Ongoing Macrocytic Anemia. Present admission. Ongoing History CVA with left-sided weakness. Is in remission. Ongoing Hyperlipidemia. Present on admission. Ongoing Hypertension. Present on admission. Ongoing GERD. Present on admission. Ongoing Problems: End of Life Preferences Full code at this time Disposition To be determined Resuscitation Status Resuscitation Status: CPR: Attempt Resuscitation POLST Updates/Changes Previous POLST?: No . Advanced Care Planning Address: POLST, Code status change Pain: None Pt History History of Present Illness Per admission H&P: Ms. Beach is a 76 -year-old female with past medical history of hyponatremia, hypertension, COPD on 2 L home O2, CVA with residual left-sided weakness, underwent deficiency anemia bilateral carotid artery stenosis status post endarterectomy who presented to the ED via EMS secondary to decreased mental status and increased oxygenation demands. Of note patient also reported to EMS personnel in route to the hospital she was having substernal chest pressure though this was new information to her daughter who is her caregiver and consistently by her side. She states she did not complain of any chest pressure or pain to her today or in the recent past. An additional concern for the patient's daughter is a slow oral bleed of the buccal mucosa she attributes to home ASA and Plavix. She was recently admitted to [facility] 10/29/2016 to 2016 secondary to fall and acute blood loss anemia related to humeral fracture and a suspected GI bleed. Orthopedics followed patient throughout this last admit, patient was found to have a comminuted displaced fracture of her from oral neck which was managed with nonsurgical treatment. She also was found to have occult blood per rectal exam, GI followed patient for previous hospital admission as well and received 3 units of PRBCs during admission. She did not receive endoscopy and Plavix was resumed secondary to stroke prophylaxis as well as ASA with plan for future endoscopy. Patient's daughter present through interview, patient mostly nonverbal and unable to answer questions appropriately. Per patient's daughter last night family noticed that she began to bleed from her nose and her gums and was concerned for aspiration. There are also concern for an increased and her fatigue and somnolence compared to her normal mental status, with no history of dementia. Daughter states that she does behave this way when her sodium is low. She has had past episodes of hyponatremia and her daughter always has sodium levels that are lower than normal requiring her to drink salted water at home. Per daughter she states that patient most likely has been drinking regular water without the addition of salt to it and her current mental status behavior is consistent with past episodes of hyponatremia. Patient's daughter states that patient has been urinating more frequently, as frequent as every 2 hours per night though with decreased output. She is also noticed an increase in her lower extremity edema. Patient's daughter also states patient has had an increase in her oxygenation demand, she normally is on 2 L home O2 though she was satting at 78% yesterday with some signs of shortness of breath. Daughter denies any fever, vomiting, melena or any other signs of bleeding, states stools have been somewhat darker than normal but not bloody in appearance. She does receive 24 7 home care with nurse as well as continual family presents and has not been outside of direct observational status since previous hospital discharge. Patient's daughter adamantly denies any possibility of ground-level fall or head trauma. A comprehensive review of systems was conducted with the patient and found to be negative except as above in the history of present illness. In the ED patient given 1 L normal saline, 4 mg Zofran. EKG showed sinus rhythm rate of 76 with normal axis and normal intervals no ST or T-wave abnormalities. CT angiogram chest showed no evidence of PE though did show bilateral pleural effusions and infiltrates left greater than right, some concern for aspiration. Patient had no leukocytosis and was afebrile. Hemoglobin 11.1, platelets 490. Urinalysis showed no evidence of infection. Patient was found to have evidence of hypercarbic respiratory failure with PCO2 greater than 130 and was intubated and transferred to CCU. She remains intubated and mechanically ventilated this morning. Palliative medicine consulted to assist patient and family in determination of goals of care. Case discussed with her medical team. I also spoke with her bedside nurse and members of the critical care team. Prior to visiting, reviewed her records in the EMR in detail, both for this and her previous admissions. I have also placed a records request with [facility] for documents associated with her May admission there for endarterectomy. When I arrived, patient is sedated, intubated and not responsive. Her daughter Alek Mcmahan is at bedside- patient typically lives with her son but Alek notes that she visits multiple times each week, participate intensively in the patient 's ongoing care and is the POA. Review reviewed at some length the patient's past history. Patient and family have noticed deterioration since March, with increasing needs for support , decreasing functional status, increasing weakness and debility. These problems accelerated after her recent hospitalizations, and in the last week prior to this admission patient was noted to be extremely fatigued (even a short walk from one room to another required 20 minutes of rest afterwards). Over these last 6 months patient's independent status has deteriorated significantly- she no longer drives, cannot handle her financial affairs any longer, requires significant assistance with ADLs. Her son and daughter have managed most of her care (her son lives in her home with her) but recently of also had home health RN, PT and OT assisting. Past Medical History Significant PMH Noted: Chronic hyponatremia Adams's palsy Iron deficiency Anemia Thyroid nodule Hypertension COPD on 2L home O2 Hiatal hernia/AVM/GERD UTI Anxiety Eczema PAD CVA with left sided weakness Bilateral carotid stenosis s/p endarterectomy of right side Social History Occupation: Retired Family Members Issues: Her daughter says that patient and family were in agreement that they wanted a reasonable trial of aggressive medical care, in hopes that the patient could recover to her baseline status. Neither the patient nor family would want long- term intubation/mechanical ventilation/permanent SNF placement Social Support: Excellent family support Living Situation: Lives with her son in her home; has recently had assistance of home health RN/PT /OT Palliative Performance Scale PPS Patient Status: Baseline (recent) PPS Ambulation: Mainly Sit/Lie PPS Activity: Unable to do any activity PPS Self-Care: Occasional assistance necessary PPS Intake: Normal or reduced PPS Conscious Level: Full or confusion Performance Scale: 40% ADLs ADL Patient Status: Baseline ADL Ambulation: Mainly Sit/Lie ADL Dressing: Occasional assistance necessary ADL Feeding: Occasional assistance necessary ADL Hygene/bathing: Occasional assistance necessary ADL Transfers: Mainly assistance POLST at Time of Admission Previous POLST?: No Allergy Allergies Reviewed: Yes Medications Current Medications: Current Medications Al Hydrox/Mg Hydrox/Simethicone 30 ml Q6 PRN PO; Start 11/17/16 at 21:00 Ondansetron HCl Dose range: 4 mg to 8 mg Q4H PRN IVPUSH; Start 11/17/16 at 21: 00 Acetaminophen 975 mg Q6H PRN PO; Start 11/17/16 at 21:00 Albuterol 1.25 mg Q6H PRN INHALATION; Start 11/18/16 at 00:25 Heparin Sodium (Porcine) 5,000 unit Q8 SUBQ Last administered on 11/18/16 10:12 ; Admin Dose 5,000 UNIT; Start 11/18/16 at 08:30 Pantoprazole 40 mg DAILYAC IVPUSH Last administered on 11/18/16 08:16; Admin Dose 40 MG; Start 11/18/16 at 07:30; Stop 11/18/16 at 10:10; Status DC Chlorhexidine Gluconate 5 ml 5 ml Q4 MT Last administered on 11/18/16 08:16; Admin Dose 5 ML; Start 11/18/16 at 04:30 Propofol [id number] mcg/Premix 100 ml @ 1.78 mls/hr Q24H IV Last administered on 07:08; Admin Dose 1.78 MLS/HR; Start 11/18/16 at 02:57 Fentanyl 2500 mcg/ Premix 250 ml @ 5 mls/hr Q24H IV Last administered on 07:08; Admin Dose 5 MLS/HR; Start 11/18/16 at 02:57 Piperacillin Sod/ Tazobactam Sod/ Dextrose/Water 50 ml @ 12.5 mls/hr Q8 IV; Start 11/18/16 at 03:00; Stop 11/18/16 at 04:37; Status DC Albuterol/ Ipratropium 3 ml 3 ml Q4H PRN NEB; Start 11/18/16 at 03:30 Sodium Chloride 1,000 ml @ 100 mls/hr Q10H IV Last administered on 11/18/16t 05 :16; Admin Dose 100 MLS/HR; Start 11/18/16 at 04:35; Stop 11/18/16 at 11:04; Status DC Piperacillin Sod/ Tazobactam Sod 3.375 gm/Dextrose/ Water 50 ml @ 12.5 mls/hr Q8H IV; Start 11/18/16 at 12:30 Dexmedetomidine/ Sodium Chloride 400 mcg/Sodium Chloride 200 ml @ 5.96 mls/hr Q24H IV; Start 11/18/16 at 10:08 Famotidine/Sodium Chloride/Premix 50 ml @ 100 mls/hr DAILY IV; Start 11/19/16 at 08:30 Scheduled Ascorbic Acid (Acerola C) 500 Mg Wafer 500 MG PO QAM Aspirin Chew (Aspirin Chew) 81 Mg Chew 81 MG PO DAILY Atorvastatin Calcium (Atorvastatin Calcium) 40 Mg Tablet 40 MG PO HS Calcium Carbonate (Calcium Carbonate) 200 Mg Tab.chew 200 MG PO BIDWM Clopidogrel (Clopidogrel) 75 Mg Tablet 75 MG PO DAILY Diltiazem (Diltiazem) 30 Mg Tablet 30 MG PO TID Ferrous Sulfate (Ferrous Sulfate) 325 Mg Tablet 325 MG PO DAILYWM Ketoconazole (Ketoconazole) 15 Gm Cream..g. 1 APPLIC TP DAILY 2% CREAM Pantoprazole DR (Protonix) 40 Mg Tablet 40 MG PO BID Vit B Comp/C/FA/Iron/Vit E (Vitamin B Complex Tablet) 1 Each Tablet 1 EACH PO DAILY Scheduled PRN Albuterol Neb Soln (Albuterol Neb Soln) 1.25 Mg/3 Ml Vial.neb 1.25 MG INHALATION Q6H PRN PRN For Shortness of Breath Loratadine (Claritin) 10 Mg Capsule 10 MG PO DAILY PRN PRN For Congestion Current Treatments Ventilator: Yes Oxygen: Yes IV Fluids: Yes Antibiotics: Yes Telemetry: Yes Critical Care Unit: Yes Objective Findings Exam Vital Sign - Last Date Time Temp Pulse Resp B/P Pulse Ox O2 Delivery O2 Flow Rate FiO2 11/18/16 08:00 90/45 99 35 11/18/16 07:47 37.2 83 16 Mechanical Ventilator 11/17/16 23:00 6.00 Intake and Output 5/29/17 5/29/17 5/30/17 Cumulative From/Thru 15:00 23:00 07:00 11/17/16 17:44 - 11/18/16 05:51 Intake Total 629 ml 629 ml Output Total 300 ml 300 ml Balance 329 ml 329 ml Intake IV Total 629 ml 629 ml Output Urine Total 300 ml 300 ml Objective Frail-appearing elderly woman lying in bed, sedated. Vital signs noted. Intubated and mechanically ventilated. Skin is pale, warm and dry. Head and neck exam without acute focal findings. Lungs with dependent crackles, no wheezes. Heart sounds regular and distant. RUE with sling/bruising secondary to prox humeral fx. Abdomen soft and without apparent tenderness or peritoneal signs. Extremities with ankle edema. Neurologic exam is limited due to sedation. Lab/Diagnostics Lab and Imaging results reviewed in detail in EMR. Time spent Total time 80 minutes; >50% face to face with patient and family, providing counselling regarding plans and recommendations, and in care coordination with her medical teams. Of the above total time, 15 minutes counseling for advanced care planning with the patients family, reviewing with her daughter/SHUKRI Gaston, patient and family wishes for care. Mayo Doyle MD November 18, 2016 11:52
[2016-11-18] MEDS: DEXMEDETOMIDINE IV SCH (12:37)
[2016-11-18] MEDS: SODIUM CHLORIDE 0.9% IV SCH (12:37)
[2016-11-18] MEDS: Piperacillin-Tazo 3.375 Gm Inj 3.375 GM in Dextrose 5% Minibag Plus 50 ML IV SCH ×2 (12:43→20:22)
[2016-11-18] MEDS ORDERED: Acetaminophen IV 1,000 MG in IV Premix 1 EACH IV PRN (12:50)
--- NOTE | 2016-11-18 13:05 | DRSVH ---
[facility] [address] [place] [address] Echocardiogram Report Name: HILARIA MAHER Date : 11/18/2016 Height: 60 in Hospital Exam Location: [facility] Weight: 132 lb Gender: Female BSA: 1.6 m2 : 1940 Age: 76 yrs BP: 93/48 mmHg Reason For Study: Congestive Heart Failure Ordering Physician: HOSPITALIST [facility] Performed By: Alexandro Howard Referring Physician: AYLEEN REYES Interpretation Summary The left ventricular cavity is small. The ejection fraction is estimated to be 65-70%. The right ventricle is normal in size and function. The aortic valve is not well visualized. Leaflet mobility is mildly reduced. The aortic valve is moderately calcified. There is mild aortic stenosis. There is no hemodynamically significant valvular aortic stenosis. The peak aortic velocity is 2.1 m/sec. The peak aortic velocity on the previous exam was 2.77 m/sec. There is trace tricuspid regurgitation. Compared to the prior echo exam, there has been a decrease in TR severity. Right ventricular systolic pressure is estimated to be 28 mmHg plus the clinically estimated CVP which cannot be estimated on this exam. Compared to the prior echo exam, there has been a decrease in the severity of pulmonary hypertension. Procedure: A two-dimensional transthoracic echocardiogram with color flow and Doppler was performed. The study quality was technically difficult. Comparison is made with the echocardiogram of 04/28/16. The patient was in normal sinus rhythm during the exam. Left Ventricle: The left ventricular cavity is small. There is normal left ventricular wall thickness. There is no thrombus. The ejection fraction is estimated to be 65-70%. Septal motion is consistent with conduction abnormality. Spectral Doppler of the mitral valve is reversed, with an E/A wave ratio < 1.0. Right Ventricle: The right ventricle is normal in size and function. Atria: The left atrium is not well visualized. Right atrial size is normal. There is no Doppler evidence for an atrial septal defect. The thickening of interatrial septum suggests lipomatous hypertrophy. Mitral Valve: The mitral valve leaflets are mildly calcified. There is trace mitral regurgitation. Compared to the prior echo study, there has been a decrease in the severity of mitral regurgitation. Aortic Valve: The aortic valve is trileaflet. The aortic valve is moderately calcified. The aortic valve is not well visualized. Leaflet mobility is mildly reduced. The peak aortic velocity is 2.1 m/sec. The aortic valve mean gradient is 9 mmHg. The peak aortic velocity on the previous exam was 2.77 m/sec. There is no hemodynamically significant valvular aortic stenosis. There is mild aortic stenosis. There is mild aortic regurgitation. Compared to the prior echo study, there has been no change in the severity of aortic regurgitation. Tricuspid Valve: The tricuspid valve is not well visualized, but is grossly normal. There is tricuspid annular calcification. There is trace tricuspid regurgitation. Compared to the prior echo exam, there has been a decrease in TR severity. Right ventricular systolic pressure is estimated to be 28 mmHg plus the clinically estimated CVP which cannot be estimated on this exam. Compared to the prior echo exam, there has been a decrease in the severity of pulmonary hypertension. Pulmonic Valve: The pulmonic valve is not well visualized. There is trace pulmonic regurgitation. Great Vessels: The aortic root is normal size. The ascending aorta could not be visualized. The pulmonary artery is normal size. Inspiratory collapse cannot be assessed because of mechanical ventilation, thus CVP cannot be estimated.. The inferior vena cava appeared normal. Pericardium/ Pleura There is no pericardial effusion. There is no pleural effusion. MMode/2D Measurements & Calculations IVC diam: 2.1 cmRA long axis: 3.7 cmLVOT diam: 2.2 cm RVD1 (basal): 2.7 cm Ao root diam: 3.2 cm RA area: 8.6 cm RA vol: 16.9 ml RA : 10.8 ml/m2 TAPSE: 2.1 cm Doppler Measurements & Calculations Ao V2 max MV E max loc MV E/A: 0.73 TR max loc : 212.7 cm/sec : 91.1 cm/sec Med Peak E' Loc : 263.0 cm/sec Ao max P.1 mmHg MV A max loc TR max PG Ao mean P.4 mmHg : 124.8 cm/sec E/E' med: 20.1 : 27.7 mmHg LVOT Max Loc MVA(VTI): 3.3 cm2 Lat Peak E' Loc PA V2 max : 175.7 cm/sec : 104.8 cm/sec JONO(I,D): 3.3 cm E/E' lat: 16.7 PA mean PG sev ratio: 0.91 E/e' average : 2.3 mmHg MV V2 mean Ao V2 mean LV V1 max PG PA V2 mean : 86.1 cm/sec : 146.6 cm/sec : 72.5 cm/sec MV mean P.2 mmHg Ao V2 VTI: 31.1 cmLV V1 VTI PA pr(Accel) MV V2 VTI: 31.3 cm JONO(V,D): 3.0 cm2 : 28.3 cm : 43.2 mmHg MV dec time: 0.36 sec JONO indexed to BSA (cm^2/m^2): 2.1 Reading Physician:KATHARINE
[2016-11-18 13:15] LABS: Unsaturated Iron Binding 282.1 ug/dL
[2016-11-18] MEDS ORDERED: Albuterol-Ipratropium 3 mL Inhalation Solution NEB SCH (14:30)
[2016-11-18] MEDS: Albuterol-Ipratropium 3 mL Inhalation Solution NEB SCH ×2 (14:43→20:45)
--- NOTE | 2016-11-18 16:19 | NUR ---
Palliative consulted Palliative Care consult placed by . [facility] notified today at [phone].
--- NOTE | 2016-11-18 17:18 | NUR ---
Wound note Pressure injury protocol received, spoke with nursing, no pressure related skin issues noted at this time. Patient intubated and on ccu bed, pressure precautions in place.
[2016-11-18] MEDS: 0.9% Sodium Chloride 1,000 ML IV SCH ×2 (17:25→20:21)
--- NOTE | 2016-11-18 17:38 | NUR ---
Respiratory/Mentation/Fever Pt vent settings unchanged from this mornin%, 5, 350, 16; pt overbreathes vent intermittently up to RR 20. RASS -3 until propofol weaned off entirely. Fentanyl at 10mcg/hr this shift; dexmed added, running at 0.2mcg/kg/min. Pt now alert, RASS 0 to -1. Pt denies pain/discomfort/anxiety. Q2h turns. NS at 100cc/hr decreased to TKO per MD orders. 250cc UOP via Moore this shift, notified, ordered to increase NS back up to 100cc/h. Pt T-max 38.3(ax), IV APAP administered, temp down to 37.3(ax); currently temp is 37.7(ax). IV abx administered as ordered.
[2016-11-18] MEDS: Albuterol 2.5 mg/3 mL Inhalation Solution NEB SCH ×2 (18:13→20:45)
[2016-11-19] VITALS (19 sets, daily range): BP systolic 97–136; BP diastolic 46–98; PULSE 94–122; RESP 16–21; O2SAT 91–98
[2016-11-19] MEDS: Albuterol 2.5 mg/3 mL Inhalation Solution NEB SCH ×7 (00:11→23:37)
[2016-11-19] MEDS: Albuterol-Ipratropium 3 mL Inhalation Solution NEB SCH ×7 (00:11→23:37)
[2016-11-19] MEDS: Heparin 5,000 Unit/mL Inj SUBQ SCH ×3 (00:50→18:41)
[2016-11-19] MEDS: Chlorhexidine 0.12% 15 mL Oral Solution MT SCH ×6 (00:50→20:56)
[2016-11-19 03:20] LABS: BASOPHILS % (AUTO) 0.3 % (0-3); EOSINOPHILS % (AUTO) 0.1 % (0-5); MONOCYTES % (AUTO) 9.5 % (4-12); Mean Corpuscular Hemoglobin 31.4 pg (27.0-35.0); Mean Corpuscular Volume 99.7 fL (81-100); NEUTROPHILS % (AUTO) 81.6 % (40-74); Platelet Count 378 bil/L (150-400)
[2016-11-19 03:31] LABS: INR 1.02 ratio
[2016-11-19 03:52] LABS: Magnesium 1.6 mg/dL (1.6-2.6); Phosphorus 3.3 mg/dL (2.5-4.9)
[2016-11-19] MEDS: Piperacillin-Tazo 3.375 Gm Inj 3.375 GM in Dextrose 5% Minibag Plus 50 ML IV SCH ×3 (04:28→20:56)
--- NOTE | 2016-11-19 06:04 | NUR ---
Respiration/Mentation: Pt continues on vent appears to be tolerating well no distress noted. Pt does nod to questions and was able to make clear she wanted ETT out. creamy yellow sputum continues to be suctioned from ET tube. Urine output was only 200mls for shift. pt appeared to be having pain with moving fentanyl was increased to 25mcg/hr.
[2016-11-19] MEDS ORDERED: KCl 40 mEq/500 mL D5W (Peripheral Line) IV ONE ×2 (07:45)
--- NOTE | 2016-11-19 08:09 | ABG ---
DateTimeAnalyzed 08:03:00 -_ pH ____7.456 - pCO2 ___47.5__ -mmHg pO2 ___45.8__ -mmHg HCO3- ___33.0__ -mmol/L ABE ____8.4__ -mmol/L tHb ____9.6__ -g/dL O2Hb ___80.1__ -% COHb ____1.9__ -% MetHb ____1.0__ -% sO2 ___82.5__ -% FIO2 ___35.0__ -% PEEP ____5.0__ -cmH2O Set_RR ___16.0__ -b/min Vt __350.0__ -L Drawn By jmw - Date/Time Notified____ 08:08:00 -_ Spontaneous_RR ___22.0__ -b/min Oxygen Device 1 VENTILATOR - Notified By JMW - Notified Whom DR YANCHUK - B 755 -mmHg tO2 ___10.8__ -Vol% Leonel test N/A -
[2016-11-19 08:14] LABS: Vitamin B12 >1999 pg/mL (211-946)
[2016-11-19] MEDS: Famotidine Inj 20 MG in IV Premix 1 EACH IV SCH (08:38)
--- NOTE | 2016-11-19 09:01 | DRSVH ---
PROCEDURE: X-RAY CHEST ONE VIEW, PORTABLE ([id number]) INDICATIONS: intubated patient with poss pna TECHNIQUE: One view of the chest was acquired. COMPARISON: [facility], CT, CT ANGIO CHEST PE, 11/17/2016, 22:25. [facility] , CR, XR CHEST 1VW (PORTABLE), 11/18/2016, 2:44. FINDINGS: Surgical changes and devices: ETT tip projected 2.4 cm above the lashon. Lungs and pleura: Interstitium is prominent and medial bibasilar airspace opacities are present. No pneumothorax. Mediastinum: Mediastinal contours appear normal. Heart size is normal. Bones and chest wall: No change in markedly displaced right humeral head/neck fracture. IMPRESSION: 1. No significant change in mild edema and bibasilar airspace opacities consistent with persistent pa tchy pulmonary edema versus aspiration or pneumonia. Dictated by: Samir CORREIA Interpreted: Shaji James MD on 11/19/2016 at 8:58 Transcribed by: PAMELA on 11/19/2016 at 9:00 Approved by: Shaji James M.D. on 11/19/2016 at 10:21
--- NOTE | 2016-11-19 09:48 | PCM.PNMED ---
Subjective Date of Service November 19, 2016 Subjective The patient has manifested an encouraging increase in alertness and responsiveness since sedation was lightened last evening. She is now fully aware and responding appropriately to questions and actively requesting for the breathing tube to be removed. She denies any source of pain aside from pain in her upper arm, she refuses pain medication to address this. Comprehensive ROS negative or unable to be obtained except as listed above. Exam Vital Signs Vital Sign - Last Date Time Temp Pulse Resp B/P Pulse Ox O2 Delivery O2 Flow Rate FiO2 11/19/16 08:14 101 91 35 11/19/16 07:30 36.2 18 117/51 Mechanical Ventilator 11/17/16 23:00 6.00 Intake and Output 11/18/16 11/18/16 11/19/16 Cumulative From/Thru 15:00 23:00 07:00 11/17/16 17:44 - 11/19/16 06:02 Intake Total 948 ml 1372 ml 2949 ml Output Total 250 ml 200 ml 750 ml Balance 698 ml 1172 ml 2199 ml Intake Oral 69 ml 69 ml IV Total 948 ml 1303 ml 2880 ml Output Urine Total 250 ml 200 ml 750 ml # Bowel Movements 0 0 Exam Gen: Alert elderly female on mechanical ventilation, mild acute distress secondary to awareness while being ventilated Neck: Supple, non tender, no JVD, Full ROM HEENT: PERRL, EOMI, no scleral icterus, no conjunctival pallor CV: RRR mild 2/6 systolic ejection murmur Resp: Lungs somewhat coarse at the right base, diffuse expiratory wheezing with ventilator breath sounds Abd: Soft, non-tender, no organomegaly, no rebound or guarding Extr: Bruising around the proximal right humerus with right arm in sling and both hands restrained Neuro: CN difficult to assess in ventilated patient IVs and Medications IV Fluids 770 ml NS delivered with IV meds Medications Reviewed: Medications were reviewed in detail Lab and Diagnostics Item Value Date Time Red Blood Count 3.06 mil/mm3 L 11/19/16 0305 Mean Corpuscular Volume 99.7 fL 11/19/16 030 Mean Corpuscular Hemoglobin 31.4 pg 11/19/16 0305 Mean Corpuscular Hemoglobin Concent 31.5 % L 11/19/16 030 Red Cell Distribution Width 17.6 % H 11/19/16 0305 Neutrophils (%) (Auto) 81.6 % H 11/19/16 0305 Lymphocytes (%) (Auto) 8.4 % L 11/19/16 0305 Monocytes (%) (Auto) 9.5 % 11/19/16 0305 Eosinophils (%) (Auto) 0.1 % 11/19/16 0305 Basophils (%) (Auto) 0.3 % 11/19/16 0305 Reticulocyte Count,Calculated 8.2 % H 11/18/16 1128 Estimat Glomerular Filtration Rate 103 mL/min 11/19/16 0305 Calcium Level 8.2 mg/dL L 11/19/16 0305 Phosphorus Level 3.3 mg/dL 11/19/16 0305 Magnesium Level 1.6 mg/dL 11/19/16 0305 Total Bilirubin 0.3 mg/dL 11/19/16 0305 Aspartate Amino Transf (AST/SGOT) 15 U/L 11/19/16 0305 Alanine Aminotransferase (ALT/SGPT) 15 U/L 11/19/16 0305 Alkaline Phosphatase 79 U/L 11/19/16 0305 Total Protein 5.1 g/dL L 11/19/16 0305 Albumin 2.9 g/dL L 11/19/16 0305 Procalcitonin 0.10 ng/mL H 11/19/16 0305 Prothrombin Time 10.9 sec 11/19/16 0305 Prothromb Time International Ratio 1.02 ratio 11/19/16 030 Result Diagram: 11/19/16 0305 11/19/16 030 Microbiology Sputum culture and PCR negative X-Rays, CTs and MRIs X-RAY CHEST ONE VIEW, PORTABLE IMPRESSION: 1. No significant change in mild edema and bibasilar airspace opacities consistent with persistent patchy pulmonary edema versus aspiration or pneumonia. Dictated by: Samir CORREIA Interpreted: Shaji James MD on 11/19/2016 at 8: 58 Transcribed by: PAMELA on 11/19/2016 at 9:00 . Cardiac Echo Impressions Interpretation Summary The left ventricular cavity is small. The ejection fraction is estimated to be 65-70%. The right ventricle is normal in size and function. The aortic valve is not well visualized. Leaflet mobility is mildly reduced. The aortic valve is moderately calcified. There is mild aortic stenosis. There is no hemodynamically significant valvular aortic stenosis. The peak aortic velocity is 2.1 m/sec. The peak aortic velocity on the previous exam was 2.77 m/ sec. There is trace tricuspid regurgitation. Compared to the prior echo exam, there has been a decrease in TR severity. Right ventricular systolic pressure is estimated to be 28 mmHg plus the clinically estimated CVP which cannot be estimated on this exam. Compared to the prior echo exam, there has been a decrease in the severity of pulmonary hypertension. Reading Physician:PM . Assessment & Plan 76 female with past medical history of chronic hyponatremia, COPD on home O2, CVA, bilateral carotid stenosis s/p recent endarterectomy admitted for hyponatremia, hypoxia and encephalopathy likely secondary to hypercapnic respiratory failure. Family had been titrated home O2 to saturation > 95% which may have induced decreased respiratory drive in this patient with severe underlying COPD. 1. Hypercapnic hypoxic respiratory failure, acute, POA, Improved -Patient with history of COPD with likely undiagnosed AXEL -Family had been titrating home O2 to keep saturation > 95% -ABG completed following admission pH 7.053, pCO2 139, pO2 85.9, HCO3 36.9, subsequent ABG unremarkable -CT angio showed bilateral pleural effusions and infiltrates left greater than right -Intubated following admission with transfer from [facility] to CCU status -1 amp bicarb given prior to intubation -Patient is increasingly cogent, will conduct pressure support trial with hope of proceeding to extubation later today. 2. Acute on chronic hyponatremia. Present on admission. Active - Per patient's daughter this is been ongoing for the last 15 years, daughter states no diagnosis given - Her baseline sodium said to be 130-133, she regularly drinks salted water - reported not been taking this over the last few days - Sodium level in ED 126 - Given 1 L IV normal saline in the ED - Monitor sodium levels closely - Serum & urine osmolality pending - Moore cath secondary to reported decreased urinary output and accurate record of I's and O's 3. Metabolic encephalopathy, acute, POA. Improved -likely secondary to hypercapnia, though patient does have history of AMS with hyponatremia -CT head negative 4. Possible aspiration, present on admission. Active - Concern for aspiration of blood secondary to recent oral and nasal bleed - Pro calcitonin essentially negative - piperacillin-tazobactam will be continued - Held Plavix/ASA secondary to daughter's preference and concern for ongoing oral bleeding -[facility] records being reviewed to ascertain need for ongoing dual anti- platelet therapy in the setting of chronic epistaxis 5. Leukocytosis, acute, POA, improving -concern for acute infection - most likely PNA given history of recent aspiration -treatment as above 6. COPD. POA, chronic. Active - Now with acute COPD exacerbation - Albuterol ipratropium q4hr PRN 7. Macrocytic Anemia. Present admission. Ongoing - Hemoglobin/hematocrit 11.1/36.6 upon presentation, downtrending with likely dilutional component - History of GI AVM however macrocytic, - B12 and folate pending - Coags unremarkable - Stool guaiac pending - Continue to monitor 8. History CVA with left-sided weakness. Is in remission. Active - Patient does not show any signs or symptoms of repeat injury - Swallow eval when appropriate 9. Hyperlipidemia. Present on admission. Active - restart statin when appropriate 10. Hypertension. Present on admission. Active - Held home Diltiazam pending swallow eval - Current blood pressure 136/62 11. GERD. Present on admission. Active - Held home Protonix by mouth - Protonix switched to famotidine while inpatient Disposition: patient continues to improve from a cognitive standpoint, anticipate extubation today or tomorrow, DC recommendations from PT will be greatly helpful once patient is extubated. Pain Evaluation: Adequate Pain Control GI Prophylaxis: H2 luca VTE Prophylaxis: Sub-Q Heparin (Unfractionated) VTE Mechanical Devices: Intermittant Pneumatic CD Resuscitation Status: CPR: Attempt Resuscitation Attending Statement The patient was seen and examined together with Dr. Veloz on 11/19/2016 and I agree with the history, exam and plan as outlined in the note above. . Mayo Veloz DO November 19, 2016 09:48 Kavin Aleman MD Nov 20, 2016 20:15
[2016-11-19] MEDS: DEXMEDETOMIDINE IV SCH ×2 (10:08→17:57)
[2016-11-19] MEDS: SODIUM CHLORIDE 0.9% IV SCH ×2 (10:08→17:57)
--- NOTE | 2016-11-19 14:40 | PCM.PALLBR ---
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 Also noted on admission CT scan of chest to have bilateral infiltrates suggesting pneumonia versus atelectasis. Palliative medicine consult to assist in determination of goals of care Records obtained from [facility] where she underwent endarterectomy- these are attached to her paper chart. Discussion with resident on neurology today (Dr. Raphael) regarding her dual antiplatelet therapy (ASA plus Plavix) in light of her recurrent epistaxis/gingival bleeding/GI bleeding- he will review with neurology attending regarding recommendations. Summary of palliative recommendations: -Symptom management (Pain/other)- appears comfortable/sedated at this time. Continue management per medical/critical care teams -DPOA/Advanced Directives/POLST- no prior POLST. Daughter Alek identified as POA. Discussed her understanding of the patient's wishes, as well as family wishes for aggressive care- at this time all are in agreement that they would want to continue aggressive care, though noted that the patient would not want to be maintained long-term on machines if there is no meaningful hope of survival. Palliative medicine will continue to follow and I anticipate discussions will evolve in the coming days. Will plan on helping patient and family generate a POLST reflecting their wishes at eventual time of discharge. Patient's daughter does have insight and understanding into the patient's deterioration over the last 6-9 months, as well as the complexity of her multiple medical conditions, and recognizes that she may be approaching end- stage. Up until this time, however, patient and family have continued to hope that with her surgery and other medical treatment that she might return to her baseline of 6-9 months ago. -Family/emotional support- excellent support from her family members in the community Patient Goals: 1. Patient's family wants to be told the truth about her illness, even if it is unpleasant. 2. Patient's family would like to be told prognosis when it can be predicted, to better guide treatment decisions. 3. Patient would choose quality of life over quantity of life, and defines quality as being functional/not bedbound or tied to machines. Additional Medical Diagnoses with primary management by Hospitalist team include : Hypercapnic hypoxic respiratory failure, acute, POA Acute on chronic hyponatremia. Present on admission. Ongoing Metabolic encephalopathy, acute, POA Possible aspiration, present on admission. Ongoing Leukocytosis, acute, POA COPD. has on admission. Ongoing Macrocytic Anemia. Present admission. Ongoing History CVA with left-sided weakness. Is in remission. Ongoing Hyperlipidemia. Present on admission. Ongoing Hypertension. Present on admission. Ongoing GERD. Present on admission. Ongoing Problems: End of Life Preferences Full code at this time Disposition To be determined Resuscitation Status Resuscitation Status: CPR: Attempt Resuscitation POLST Updates/Changes Previous POLST?: No . Pain: None Symptom management: Dyspnea Total time 45 minutes; >50% face to face with patient and family, providing counselling regarding plans and recommendations, and in care coordination with her medical teams. Of the above total time, 10 minutes counseling for advanced care planning with the patient's family, reviewing their wishes in case of need for reintubation copies to: Jay Jay Vinson MD Palliative Brief Note Date of Service November 19, 2016 . Returned to reevaluate patient. Prior to visiting, reviewed her updated records in the EMR in detail, spoke with her bedside nurse and with numbers of her critical care team. Returned later in the afternoon to review her status and plans once again with critical care team and then talk more with family. Patient remained stable through the evening, on decreasing sedation and with increasing wakefulness and interaction. Underwent pressure support trial this morning which is being repeated this afternoon- critical care team is hoping on possible extubation tomorrow. On my arrival, patient was resting with eyes closed. I talked at length with her daughter and son, reviewed her status, answered questions they had. When I revisited in the afternoon, patient was fully awake and alert, and nodded her head appropriately to questions. We discussed whether or not they would want a trial of reintubation if she deteriorated after extubation. They are quite realistic and recognize that her health has been deteriorating- the continued to express the wish that if the medical team thought she could be briefly reintubated with a strong likelihood of eventual extubation and improvement, then they would be willing to have her reintubated. On the other hand, if it appears that she ultimately cannot be survive off the ventilator, we would not want her continued support and want her to be kept comfortable and allowed to pass away peacefully. Exam today: Gen: Alert elderly female on mechanical ventilation, mild acute distress secondary to awareness while being ventilated Neck: Supple, non tender, no JVD, Full ROM HEENT: PERRL, EOMI, no scleral icterus, no conjunctival pallor CV: RRR mild 2/6 systolic ejection murmur Resp: Lungs somewhat coarse at the right base, diffuse expiratory wheezing with ventilator breath sounds Abd: Soft, non-tender, no organomegaly, no rebound or guarding Extr: Bruising around the proximal right humerus with right arm in sling and both hands restrained Neuro: CN difficult to assess in ventilated patient Labs and imaging studies reviewed in detail Mayo Doyle MD November 19, 2016 14:40
[2016-11-19] MEDS ORDERED: Magnesium Sulf 2 Gm/50mL Water 2 GM in IV Premix 1 EACH IV ONE (15:10)
--- NOTE | 2016-11-19 15:29 | PROG NOTE ---
[address] [address] PROGRESS NOTE PATIENT: HILARIA MAHER : 1940 MR#: [id number] ADMIT: 11/17/2016 JOB ID: [id number] PULMONARY CRITICAL CARE FOLLOWUP NOTE: DATE: 11/19/2016 PROBLEM LIST: 1. Hypoxemic hypercarbic respiratory failure. 2. COPD. 3. Hypernatremia. 4. Metabolic encephalopathy. 5. Aspiration. 6. Microcytic anemia. 7. Hiatal hernia. 8. Gastroesophageal reflux disease. SUBJECTIVE: The patient awake, alert and intubated. Communicating she is not having any chest or abdominal pain. Maybe slight sore throat. Does not want any pain medications for this including even Tylenol. Breathing relatively comfortably at the moment. OBJECTIVE: Temperature 36.2, pulse about 100, respiratory rate 18 with ventilator set at 18, blood pressure 136/98, O2 sat on an FiO2 of 35%, PEEP of 5, is 96%. I and O shows 1.5 L in, 0.5 L out. General appearance: No acute distress. Awake, responding to questions. Eyes: Conjunctivae are pink. No scleral icterus. Nose and throat could not be examined. Chest somewhat diminished breath sounds bilaterally. Lung martinez are clear. Breath sounds are moderately decreased. There are some crackles and expiratory squeaks throughout the right lung. Left lung is clear. Heart: Heart tones normal. Abdomen is soft. Bowel tones present. Extremities: No pretibial edema. LABORATORY AND IMAGING DATA: Shows a white count of 9200 with 81 polymorphonuclears, 8 lymphocytes, 9 monocytes. Hemoglobin 9.6 slightly down from yesterday's value of 10.5 g/dL. Platelet count 370,000 slightly decreased. Sodium 134, potassium 3.6, chloride 90, CO2 is 28, BUN 24, creatinine 0.7. Calcium is 8.2 with albumin of 2.9. Phosphorus normal at 3.3. Magnesium low-normal at 1.6. Transaminases are normal. Alkaline phos normal at 15, alkaline phos normal at 79. Procalcitonin is 0.10 and unchanged. Chest x-ray shows prominent interstitium. There are bibasilar opacities. Unable to obtain arterial blood gases. Peripheral venous gases show a pCO2 of 47, pH 7.45, bicarbonate of 33. ASSESSMENT: 1. Hypoxemic hypercarbic respiratory failure. Doing quite a bit better. In fact, we are over-ventilating her a little bit. Venous gases suggest her pCO2 is pretty close to 40 with pH pretty close to 4.5, and she was much better with a pCO2 of 60 with a pH 7.36. We need to re-attain those values to expedite an uncomplicated extubation. Will try a weaning trial today. 2. Electrolyte abnormalities. Magnesium a bit low and can afford to be supplemented. May need a bit of potassium as well. Current findings and plan discussed with the family. PLAN: 1. Pressure support trial ad aiming for pressure support which achieves a tidal volume of maybe 250-300 with a respiratory rate in the low to mid 20s and see how she does. Might initially try only for relatively short period of time; maybe 20 minutes; maybe an hour. With her ventilatory failure will probably need a trial of 3 or 4 hours it because of muscle weakness. Will probably have to extubate to BiPAP. 2. Mag is a bit low as is potassium. Can supplement a bit. 3. Nutrition. Unfortunately NG tube cannot be placed due to her large hiatal hernia. Do not think TPN is warranted at this point. 4. Add K to IV fluids. 5. Will see if sodium phos can be placed via peripheral line as I think she just had peripheral IVs at this point. TIME SPENT IN CRITICAL CARE: 40 minutes.
[2016-11-19] MEDS: 0.9% NaCl + KCl 20 mEq/L 1,000 ML IV SCH (15:59)
--- NOTE | 2016-11-19 16:29 | NUR ---
Social Work Note: Initial Assessment Data& Assessment: Pt remains on the vent. SW met with pt daughter at bedside to discuss discharge planning, SW role explained. Melisa Beach is a 76 year old female admitted on 11/17/2016 for hypoxia. Pt is intubated at this time. Pt has [employer] and [employer] insurance coverage. Pt sees Jay [facility] Asifch[facility] for primary care. Pt lives in [place] with her daughter and is independent with no DME at baseline. Pt is currently open with [facility] PT, RN, and OT. Pt daughter would like these services continued when medically ready. Pt daughter explained pt has never been to a SNF and never will go to one. Pt daughter emphasized 24/ support at home to monitor pt safety. Pt daughter has DPOA/Advance Directive paperwork completed on file. Pt does not have LTC insurance or VA benefits. Pt daughter denies any needs at this time. SW to continue to follow. Plan: Anticipated discharge home via POV when medically ready with resume [facility] PT, RN and OT pending MD Orders. Pt daughter denies any needs at this time. SW to continue to follow. TAD Ramsey Addendum: 11/19/16 at 1633 by ISAIAS FITZGERALD Amended: Links added.
[2016-11-19] MEDS ORDERED: Acetaminophen IV 1,000 MG in IV Premix 1 EACH IV PRN (20:40)
[2016-11-20] VITALS (14 sets, daily range): BP systolic 104–147; BP diastolic 50–76; PULSE 76–126; RESP 15–25; O2SAT 88–96
[2016-11-20] MEDS: Chlorhexidine 0.12% 15 mL Oral Solution MT SCH ×6 (01:41→20:08)
[2016-11-20] MEDS: 0.9% NaCl + KCl 20 mEq/L 1,000 ML IV SCH ×3 (01:41→21:59)
[2016-11-20] MEDS: Heparin 5,000 Unit/mL Inj SUBQ SCH ×3 (01:41→17:52)
[2016-11-20] MEDS: Propofol Inj 1,000,000 MCG in IV Premix 1 EACH IV SCH (01:42)
[2016-11-20] MEDS: fentaNYL 2,500 mCg/250 mL 2,500 MCG in IV Premix 1 EACH IV SCH (02:57)
[2016-11-20 03:43] LABS: BASOPHILS % (AUTO) 0.2 % (0-3); EOSINOPHILS % (AUTO) 0.1 % (0-5); MONOCYTES % (AUTO) 9.3 % (4-12); Mean Corpuscular Hemoglobin 31.2 pg (27.0-35.0); Mean Corpuscular Volume 99.7 fL (81-100); NEUTROPHILS % (AUTO) 82.3 % (40-74); Platelet Count 331 bil/L (150-400)
[2016-11-20 03:55] LABS: INR 1.06 ratio
[2016-11-20] MEDS: Albuterol-Ipratropium 3 mL Inhalation Solution NEB SCH (04:00)
[2016-11-20] MEDS: Albuterol 2.5 mg/3 mL Inhalation Solution NEB SCH ×6 (04:00→23:56)
[2016-11-20 04:12] LABS: Phosphorus 2.7 mg/dL (2.5-4.9)
[2016-11-20] MEDS: Piperacillin-Tazo 3.375 Gm Inj 3.375 GM in Dextrose 5% Minibag Plus 50 ML IV SCH ×3 (05:31→20:09)
[2016-11-20] MEDS: Famotidine Inj 20 MG in IV Premix 1 EACH IV SCH (07:55)
--- NOTE | 2016-11-20 08:17 | NUR ---
Pressure support trial: Pt on pressure support trial, HR up to 140s, aware.
[2016-11-20] MEDS: Diltiazem 5 mg/mL 5 mL Inj IVPUSH SCH ×3 (12:13→22:04)
--- NOTE | 2016-11-20 13:38 | PCM.PALLBR ---
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 Also noted on admission CT scan of chest to have bilateral infiltrates suggesting pneumonia versus atelectasis. Palliative medicine consult to assist in determination of goals of care Records obtained from [facility] where she underwent endarterectomy- these are attached to her paper chart. On 11/19, Dr. Doyle discussed dual antiplatelet therapy (ASA + Plavix) with resident on neurology (Dr. Raphael) in light of her recurrent epistaxis/gingival bleeding/GI bleeding. Resident will review with his neurology attending regarding recommendations. Summary of palliative recommendations: -Symptom management (Pain/other)- appears comfortable/sedated at this time. Continue management per medical/critical care teams -DPOA/Advanced Directives/POLST- no prior POLST. Daughter Alek identified as POA. Discussed her understanding of the patient's wishes, as well as family wishes for aggressive care- at this time All are in agreement that they would want to continue aggressive care, and that the patient did NOT want to be maintained long-term on machines, so once she is extubated, there will be no reintubation. Palliative medicine will continue. Will plan on helping patient and family generate a POLST reflecting their wishes at eventual time of discharge. Patient's daughter does have insight and understanding into the patient's deterioration over the last 6-9 months, as well as the complexity of her multiple medical conditions, and recognizes that she may be approaching end- stage. Up until this time, however, patient and family have continued to hope that with her surgery and other medical treatment that she might return to her baseline of 6-9 months ago. -Family/emotional support- excellent support from her family members in the community Patient Goals: 1. Patient's family wants to be told the truth about her illness, even if it is unpleasant. 2. Patient's family would like to be told prognosis when it can be predicted, to better guide treatment decisions. 3. Patient would choose quality of life over quantity of life, and defines quality as being functional/not bedbound or tied to machines. Additional Medical Diagnoses with primary management by Hospitalist team include : Hypercapnic hypoxic respiratory failure, acute, POA Acute on chronic hyponatremia. Present on admission. Ongoing Metabolic encephalopathy, acute, POA Possible aspiration, present on admission. Ongoing Leukocytosis, acute, POA COPD. has on admission. Ongoing Macrocytic Anemia. Present admission. Ongoing History CVA with left-sided weakness. Is in remission. Ongoing Hyperlipidemia. Present on admission. Ongoing Hypertension. Present on admission. Ongoing GERD. Present on admission. Ongoing Problems: End of Life Preferences Full code at this time Disposition To be determined Resuscitation Status Resuscitation Status: CPR: Attempt Resuscitation POLST Updates/Changes Previous POLST?: No Total time 65 minutes; >50% face to face with patient and/or family, providing counselling regarding plans and recommendations, and in care coordination with his/her medical teams. I also spent an additional [ ] minutes counseling for advanced care planning with the patient/the patients family/the surrogate decision maker. Palliative Brief Note Date of Service Nov 20, [address] Eden rounded on patient and met with family today. Prior to visiting, reviewed her updated records in the EMR in detail, spoke with her bedside nurse and with numbers of her critical care team. Spoke with family twice in morning and returned later in the afternoon to review her status and plans once again with critical care team and then talk more with family. Team is hoping for extubation sometime today and wanted Palliative to find out from family if they would want re-intubation, if Mrs. Beach does not do well after extubation. We discussed whether or not they would want a trial of reintubation if she deteriorated after extubation. I talked at length with her daughter and son, reviewed her status, answered questions they had. And they said that she had already told them she didn't want intubation, and they say, once extubated: do NOT re-intubate. Transition to making her comfortable by controlling her dyspnea , if she declines after extubation. Exam: Gen: Intermittently alert elderly female on mechanical ventilation, mild acute distress secondary to awareness while being ventilated Neck: Supple, non tender, no JVD, Full ROM HEENT: PERRL, EOMI, no scleral icterus, no conjunctival pallor CV: RRR mild 2/6 systolic ejection murmur Resp: Lungs somewhat coarse at the right base, diffuse expiratory wheezing with ventilator breath sounds Abd: Soft, non-tender, no organomegaly, no rebound or guarding Extr: Bruising around the proximal right humerus with right arm in sling and both hands restrained Neuro: CN difficult to assess in ventilated patient Labs and imaging studies reviewed in detail Meeta Eden MD Nov 20, 2016 13:38
--- NOTE | 2016-11-20 14:36 | NUR ---
NUTRITION FOLLOW-UP: ASSESS: Pt is a 76yo F admitted to CCU for hypoxia and hyponatremia. Currently vented and sedated. NPOx3 days. Pt does not have an OGT due to hiatal hernia. Possible plan for extubation. PMHX: chronic hyponatremia, bells, palsy, anemia, HTN, COPD, CVA LABS: Reviewed. Cl 94, Glu 101, Alb 2.4 MEDS: Reviewed. Fentanyl, propofol off GI: 0 BM yet SKIN: Jayce 11 no PU per WC CURRENT WTS: 59.6kg, BMI 25.7kg/m2 (no new wt since admit) DIET: NPOx3 EST. NEEDS: vent Kcals: 1190-1490kcal/day (20-25kcal/kg) Pro: 90-110g/day (1.5-1.8g/kg) Fluids: 1490-1785ml/day (25-30ml/kg) NUTRITION DIAGNOSIS: 1.) Inadequate oral intake related to decreased ability to consume sufficient energy as evidenced by current NPO status NUTRITION INTERVENTION: 1.) Will continue to monitor NPO status. If pt continues to be intubated and OGT continues to be unable to be placed TPN may need to be considered. 2.) If OG placed, recommend TF of Pulmocare. Recommend start at 10ml/hr and advance by 10ml q 6 hrs until reach goal rate of 45ml/hr to provide 1485kcal and 61g pro. (100% kcal and 67%pro needs). Recommend addition of 1 packet prosource TID to better meet protein needs. 3.) If OG unable to be placed. Recommend TPN be considered. Recommend start at 125g Dex, 45g AA and 25g lipids to provide 855kcal and 45g pro. Recommend goal TPN of 225g Dex, 90g AA and 40g lipids to provide 1525kcal and 90g pro (100% estimated needs) MONITOR / EVAL: NPO, wt, GI, labs, nutrition support?, POC, nutrition status. Will continue to monitor per high nutrition risk guidelines.
[2016-11-20] MEDS: Dexamethasone Inj 10 MG in 0.9% Sodium Chloride-Pha MIX 50 ML IV SCH ×2 (15:59→20:08)
--- NOTE | 2016-11-20 17:51 | PROG NOTE ---
[address] [address] PROGRESS NOTE PATIENT: HILARIA MAHER : 1940 MR#: [id number] ADMIT: 11/17/2016 JOB ID: [id number] DATE: 11/20/2016 PROBLEM LIST: 1. Hypoxemic hypercarbic respiratory failure, acute on chronic. 2. COPD. 3. Hypernatremia. 4. Metabolic encephalopathy. 5. Aspiration pneumonitis. 6. Macrocytic anemia. 7. Hiatal hernia with gastroesophageal reflux. SUBJECTIVE: The patient is awake, responding to questions with apparent accuracy. Denies shortness of breath. No chest or abdominal pain. Anxious to have the tube out. Does not want any pain medicines for her various needs. OBJECTIVE: Temperature 36.8, pulse 98-84, respiratory rate 22 on pressure support ventilation, blood pressure 138/65, O2 sat on FiO2 of 35%, PEEP of 5 is 94%. I and O shows 2.8 L in, 0.5 L out. General appearance: Frail. Appropriate. Awake and responding to questions. Eyes: Conjunctivae are pink. Nose and throat: Could not be examined. Chest: Moderately diminished breath sounds. Lung martinez are relatively clear maybe with a few crackles at the left lateral lower lung field. Heart: Heart tones normal. Abdomen: Soft. Nondistended. A few bowel tones present. Extremities: No pretibial edema. LABORATORY DATA: Shows a white count of 8400 with 82 polymorphonuclears, 8 lymphs, 9 monocytes. Hemoglobin slowly decreasing at 9.2. Platelet count slowly decreasing at 331. Sodium 134, potassium 4, chloride 94, CO2 is 28, BUN 21 and stable. Creatinine 0.7 and stable. Calcium 7.9 with albumin of 2.4. Phosphorus normal at 2.7. Magnesium normal at 2. Total bilirubin normal at 0.5. Transaminases and alkaline phos normal. INR 1.06. ASSESSMENT: 1. Acute on chronic hypoxemic hypercarbic respiratory failure. The patient did reasonably well on a pressure support trial yesterday. We will continue to lower the pressure support and see how she does. Plan is to have her proceed with pressure support of 7 or 8/5 for maybe 3 or 4 hours. Then, if she is doing well, we will let her rest for about an hour or two and then hopefully proceed with extubation. Discussed reintubation with palliative care service as well as the family. Palliative Care felt that if we thought that she was going to do well, we should reintubate her, but if she was going to have continued problems with marked dependency on others, especially if she required prolonged ventilatory support, that would not be in accord with her previously expressed wishes. 2. Metabolic encephalopathy, seemingly resolved. The patient seems quite appropriate. 3. Macrocytic anemia. Hemoglobin slowly decreasing. Has dropped 1.3 g/dL over the past 48 hours. 4. Aspiration pneumonia. Doing better. Oxygenating better. Overall respiratory status is improving. Rediscussed the situation regarding reintubation with the family. Their feelings have not changed from last night and early this morning with the consensus being that the patient would certainly not want a trach and that would be out of the question. Would not want to be on a ventilator for any prolonged period of time and would like to regain somewhat of an independent living status. PLAN: 1. Taper fentanyl infusion. 2. Continue dexmedetomidine infusion. 3. Continue pressure support trial. If she does well, we will rest her for 2-3 hours and then consider extubation. She will likely need to be extubated to BiPAP, certainly if not at the time of extubation, she will have to use it at night in any case. After extubation, she will require evaluation for home. TIME: Time spent so far in critical care 49 minutes.
--- NOTE | 2016-11-20 18:09 | NUR ---
Resp: Pt on pressure support for several hours, well tolerated after initial tachycardia. No cuff leak present, unable to extubate at this time. Dexamethasone given. Fentanyl/Precedex for sedation, see CCU flowsheet for details. Family updated on plan of care, care ongoing.
--- NOTE | 2016-11-20 18:26 | PCM.PNMED ---
Subjective Date of Service Nov 20, 2016 Subjective The patient remains quite awake and alert, responding appropriately to questions and commands, and appears eager to get extubated though currently maintaining humor about the situation. She endorses some pain in her broken arm but steadfastly refuses any pain medication for this issue. She has been progressing in her tolerance of breathing trials but still remains somewhat tenuous from a respiratory standpoint such that she may benefit from another day of mechanical ventilation. Comprehensive ROS negative except as outlined above. Exam Vital Signs Vital Sign - Last Date Time Temp Pulse Resp B/P Pulse Ox O2 Delivery O2 Flow Rate FiO2 11/20/16 16:30 Ventilator 11/20/16 16:30 74 122/60 94 30 11/20/16 16:30 15 11/20/16 08:00 36.8 11/19/16 12:25 6.00 Intake and Output 11/19/16 11/19/16 11/20/16 Cumulative From/Thru 15:00 23:00 07:00 11/17/16 17:44 - 11/20/16 06:26 Intake Total 1430 ml 1394 ml 6773 ml Output Total 300 ml 200 ml 1250 ml Balance 1130 ml 1194 ml 5523 ml Intake Oral 78 ml 147 ml IV Total 1430 ml 1316 ml 6626 ml Output Urine Total 300 ml 200 ml 1250 ml # Bowel Movements 0 Exam Gen: Alert elderly female on mechanical ventilation, mild acute distress secondary to awareness while being ventilated, fully aware and cogent responding appropriately to questions and commands Neck: Supple, non tender, no JVD, Full ROM HEENT: PERRL, EOMI, no scleral icterus, no conjunctival pallor CV: RRR mild 2/6 systolic ejection murmur Resp: Lungs somewhat coarse at the right base, diffuse expiratory wheezing with ventilator breath sounds Abd: Soft, non-tender, no organomegaly, no rebound or guarding Extr: Bruising around the proximal right humerus with right arm in sling and both hands restrained Neuro: CN difficult to assess in ventilated patient IVs and Medications IV Fluids 250 ml NS delivered with IV meds Medications Reviewed: Medications were reviewed in detail Lab and Diagnostics Item Value Date Time Red Blood Count 2.95 mil/mm3 L 11/20/16 0320 Mean Corpuscular Volume 99.7 fL 11/20/16 0320 Mean Corpuscular Hemoglobin 31.2 pg 11/20/16 0320 Mean Corpuscular Hemoglobin Concent 31.3 % L 11/20/16 0320 Red Cell Distribution Width 17.7 % H 11/20/16 0320 Neutrophils (%) (Auto) 82.3 % H 11/20/16 0320 Lymphocytes (%) (Auto) 8.0 % L 11/20/16 0320 Monocytes (%) (Auto) 9.3 % 11/20/16 0320 Eosinophils (%) (Auto) 0.1 % 11/20/16 0320 Basophils (%) (Auto) 0.2 % 11/20/16 0320 Reticulocyte Count,Calculated 8.2 % H 11/18/16 1128 Sodium Level 134 mEq/L 11/20/16 0320 Estimat Glomerular Filtration Rate 115 mL/min 11/20/16 0320 Calcium Level 7.9 mg/dL L 11/20/16 0320 Phosphorus Level 2.7 mg/dL 11/20/16 0320 Magnesium Level 2.0 mg/dL 11/20/16 0320 Total Bilirubin 0.5 mg/dL 11/20/16 0320 Aspartate Amino Transf (AST/SGOT) 16 U/L 11/20/16 0320 Alanine Aminotransferase (ALT/SGPT) 14 U/L 11/20/16 0320 Alkaline Phosphatase 78 U/L 11/20/16 0320 Total Protein 4.9 g/dL L 11/20/16 0320 Albumin 2.4 g/dL L 11/20/16 0320 Procalcitonin 0.21 ng/mL H 11/20/16 0320 Result Diagram: 11/20/16 0320 11/20/16 0320 Microbiology Sputum culture and PCR negative X-Rays, CTs and MRIs X-RAY CHEST ONE VIEW, PORTABLE IMPRESSION: 1. No significant change in mild edema and bibasilar airspace opacities consistent with persistent patchy pulmonary edema versus aspiration or pneumonia. Dictated by: Samir CORREIA Interpreted: Shaji James MD on 11/19/2016 at 8: 58 Transcribed by: PAMELA on 11/19/2016 at 9:00 X-RAY CHEST ONE VIEW, PORTABLE IMPRESSION: 1. No significant change in mild edema and bibasilar airspace opacities consistent with persistent patchy pulmonary edema versus aspiration or pneumonia. Dictated by: Samir CORREIA Interpreted: Shaji James MD on 11/19/2016 at 8: 58 Transcribed by: PAMELA on 11/19/2016 at 9:00 Approved by: Shaji James M.D. on 11/19/2016 at 10:21 CT BRAIN WITHOUT CONTRAST IMPRESSION: No acute intracranial disease process. Dictated by: Neelam Miller MD, PhD on 11/18/2016 at 10:21 Approved by: Neelam Miller MD, PhD on 11/18/2016 at 10:25 . Cardiac Echo Impressions Interpretation Summary The left ventricular cavity is small. The ejection fraction is estimated to be 65-70%. The right ventricle is normal in size and function. The aortic valve is not well visualized. Leaflet mobility is mildly reduced. The aortic valve is moderately calcified. There is mild aortic stenosis. There is no hemodynamically significant valvular aortic stenosis. The peak aortic velocity is 2.1 m/sec. The peak aortic velocity on the previous exam was 2.77 m/ sec. There is trace tricuspid regurgitation. Compared to the prior echo exam, there has been a decrease in TR severity. Right ventricular systolic pressure is estimated to be 28 mmHg plus the clinically estimated CVP which cannot be estimated on this exam. Compared to the prior echo exam, there has been a decrease in the severity of pulmonary hypertension. Reading Physician:KATHARINE . Assessment & Plan 76 female with past medical history of chronic hyponatremia, COPD on home O2, CVA, bilateral carotid stenosis s/p recent endarterectomy admitted for hyponatremia, hypoxia and encephalopathy likely secondary to hypercapnic respiratory failure. Family had been titrated home O2 to saturation > 95% which may have induced decreased respiratory drive in this patient with severe underlying COPD. 1. Hypercapnic hypoxic respiratory failure, acute, POA, Improved -Patient with history of COPD with likely undiagnosed AXEL -Family had been titrating home O2 to keep saturation > 95% -ABG completed following admission pH 7.053, pCO2 139, pO2 85.9, HCO3 36.9, subsequent ABG unremarkable -CT angio showed bilateral pleural effusions and infiltrates left greater than right -Intubated following admission with transfer from [facility] to CCU status -1 amp bicarb given prior to intubation -Patient tolerated her pressure support trials well, but still remains somewhat tenuous from a respiratory standpoint such that she may benefit from another day of mechanical ventilation 2. Acute on chronic hyponatremia. Present on admission. Improved - Per patient's daughter this is been ongoing for the last 15 years, daughter states no diagnosis given - Her baseline sodium said to be 130-133, she regularly drinks salted water - reported not been taking this over the last few days - Sodium level in ED 126 - Given 1 L IV normal saline in the ED - Monitor sodium levels closely - Serum & urine osmolality pending - Moore cath secondary to reported decreased urinary output and accurate record of I's and O's 3. Metabolic encephalopathy, acute, POA. Improved -likely secondary to hypercapnia, though patient does have history of AMS with hyponatremia -CT head negative 4. Possible aspiration, present on admission. Active - Concern for aspiration of blood secondary to recent oral and nasal bleed - Pro calcitonin essentially negative - piperacillin-tazobactam will be continued - Held Plavix/ASA secondary to daughter's preference and concern for ongoing oral bleeding - [facility] records being reviewed to ascertain need for ongoing dual anti- platelet therapy in the setting of chronic epistaxis 5. Leukocytosis, acute, POA, improving -concern for acute infection - most likely PNA given history of recent aspiration -treatment as above 6. COPD. POA, chronic. Active - Now with acute COPD exacerbation - Albuterol ipratropium q4hr PRN 7. Macrocytic Anemia. Present admission. Ongoing - Hemoglobin/hematocrit 11.1/36.6 upon presentation, downtrending with likely dilutional component - History of GI AVM however macrocytic, - B12 and folate unremarkable with B12 elevated likely secondary to supplementation - Coags unremarkable - Stool guaiac negative - Continue to monitor 8. History CVA with left-sided weakness. Is in remission. Active - Patient does not show any signs or symptoms of repeat injury - Swallow eval when appropriate 9. Hyperlipidemia. Present on admission. Active - restart statin when appropriate 10. Hypertension. Present on admission. Active - Held home Diltiazam pending swallow eval - Current blood pressure 136/62 11. GERD. Present on admission. Active - Held home Protonix by mouth - Protonix switched to famotidine while inpatient Disposition: The patient remains mechanically ventilated, with plan to proceed to likely extubation tomorrow. Following extubation the patient will likely require 2-3 of further hospitalization in order to stabilize respiratory status and conduct appropriate early rehabilitation. Afterwards needs will be determined by clinical team in conjunction with physical therapy and speech therapy. Pain Evaluation: Adequate Pain Control GI Prophylaxis: H2 luca VTE Prophylaxis: Sub-Q Heparin (Unfractionated) VTE Mechanical Devices: Intermittant Pneumatic CD Resuscitation Status: CPR: Attempt Resuscitation Attending Statement The patient was seen and examined together with Dr. Veloz on 11/20/2016 and I agree with the history, exam and plan as outlined in the note above. . Mayo Veloz DO Nov 20, 2016 18:25 Kavin Aleman MD Nov 20, 2016 20:17
[2016-11-21] VITALS (16 sets, daily range): BP systolic 115–150; BP diastolic 54–87; PULSE 74–93; RESP 16–28; O2SAT 93–97
[2016-11-21] MEDS: Chlorhexidine 0.12% 15 mL Oral Solution MT SCH ×6 (00:34→21:07)
[2016-11-21] MEDS: Heparin 5,000 Unit/mL Inj SUBQ SCH ×3 (00:34→15:37)
[2016-11-21] MEDS: DEXMEDETOMIDINE IV SCH (00:38)
[2016-11-21] MEDS: SODIUM CHLORIDE 0.9% IV SCH (00:38)
[2016-11-21] MEDS: Dexmedetomidine 400 mCg/100 mL 400 MCG in IV Premix 1 EACH IV SCH ×2 (00:41→21:05)
[2016-11-21] MEDS: Dexamethasone Inj 10 MG in 0.9% Sodium Chloride-Pha MIX 50 ML IV SCH ×2 (02:49→10:01)
[2016-11-21] MEDS: Propofol Inj 1,000,000 MCG in IV Premix 1 EACH IV SCH ×2 (02:57→23:17)
[2016-11-21] MEDS: fentaNYL 2,500 mCg/250 mL 2,500 MCG in IV Premix 1 EACH IV SCH ×2 (02:57→23:17)
[2016-11-21 03:12] LABS: BASOPHILS % (AUTO) 0 % (0-3); EOSINOPHILS % (AUTO) 0 % (0-5); MONOCYTES % (AUTO) 0.6 % (4-12); Mean Corpuscular Hemoglobin 30.8 pg (27.0-35.0); Mean Corpuscular Volume 101.5 fL (81-100); NEUTROPHILS % (AUTO) 97.8 % (40-74); Platelet Count 329 bil/L (150-400)
[2016-11-21 03:28] LABS: INR 0.99 ratio
[2016-11-21] MEDS: Albuterol 2.5 mg/3 mL Inhalation Solution NEB SCH ×6 (04:12→23:57)
[2016-11-21 04:14] LABS: Phosphorus 3.5 mg/dL (2.5-4.9)
[2016-11-21] MEDS: Piperacillin-Tazo 3.375 Gm Inj 3.375 GM in Dextrose 5% Minibag Plus 50 ML IV SCH ×3 (04:37→21:10)
--- NOTE | 2016-11-21 05:08 | NUR ---
Respiratory Vs as noted. Continues ventilated with sats mid 90s on 30% fio2 without desaturation. Suctioning small to moderate amount creamy thin secretions per ETT. Pt arouses easily to minimal stimulation. 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 Tele sinus rhythm 70s to 80s.
[2016-11-21] MEDS: Diltiazem 5 mg/mL 5 mL Inj IVPUSH SCH ×4 (05:43→21:07)
[2016-11-21] MEDS: 0.9% NaCl + KCl 20 mEq/L 1,000 ML IV SCH (07:36)
[2016-11-21] MEDS: Famotidine Inj 20 MG in IV Premix 1 EACH IV SCH (07:36)
[2016-11-21] MEDS ORDERED: Furosemide 10 mg/mL 2 mL Inj IVPUSH ONE (09:10)
--- NOTE | 2016-11-21 10:03 | DRSVH ---
PROCEDURE: X-RAY CHEST ONE VIEW, PORTABLE ([id number]) INDICATIONS: pneumonia TECHNIQUE: One view of the chest was acquired. COMPARISON: [facility], CR, XR CHEST 1VW (PORTABLE), 11/19/2016, 4:50. FINDINGS: Surgical changes and devices: ETT tip projected 2.4 cm above the lashon. Lungs and pleura: Interstitium is prominent and medial bibasilar airspace opacities are present sligh tly increased involving the left lung base. No pneumothorax. Mediastinum: Mediastinal contours appear normal. Heart size is normal. Bones and chest wall: No change in markedly displaced right humeral head/neck fracture. IMPRESSION: Persistent mild edema and slight interval increase in medial left basilar airspace opacit ies consistent with patchy pulmonary edema versus atelectasis or pneumonia. Dictated by: Samir CORREIA Interpreted: Shaji James MD on 11/21/2016 at 10:01 Transcribed by: PAMELA on 11/21/2016 at 10:02 Approved by: Shaji James M.D. on 11/21/2016 at 11:37
--- NOTE | 2016-11-21 10:32 | CONS ---
[address] [address] CONSULTATION REPORT PATIENT: HILARIA MAHER : 1940 MR#: [id number] ADMIT: 11/17/2016 JOB ID: [id number] DATE OF SERVICE: 11/18/2016 REQUESTING PHYSICIAN: Kavin Aleman MD. REASON FOR CONSULTATION: Ventilatory failure. HISTORY OF PRESENT ILLNESS: The patient is a 76-year-old, female with chronic hyponatremia, COPD on chronic home O2, and CVA with left-sided deficit, peripheral vascular disease, who is status post right endarterectomy. The patient has had numerous problems with hyponatremia. However, she has not particularly complained of pulmonary symptoms, although of note is that the patient is on supplemental oxygen at 2-3 L a minute for the past year or two. She does have a nebulizer but rarely uses it. Prefers to describe her problems as due to allergies. The patient was stumbling along with her usual problems until yesterday when the patient's daughter noted the patient was more altered, confused. Due to similar problems with her hyponatremia, the daughter brought her to the emergency department. She was diagnosed as having marked hypercarbia with a pH of 7.05 and a pCO2 of 139. She was subsequently intubated due to the severity of her hypercarbia. Currently, she is sedated on the ventilator. The patient has a long and rich history of problems. As mentioned above, she has recurrent problems with hyponatremia. Has been seen on multiple occasions with sodiums in the 120s, occasionally in the high 1-teens. She apparently has a very low threshold, getting OFFICE SERVICES SPECIALIST symptoms when serum sodium is in the high 120s. She does drink water though it turns out she drinks maybe two 6 ounce cups of water a day. Also, being treated with salt water drinks, again drinking maybe two 6 ounce cups of salt water a day. No apparent residua, although the patient fell in the recent past, fracturing her right humerus. Because of multiple medical problems, Orthopedics is treating her nonsurgically due to her high risk for surgical complications. The patient also has a history of a CVA. A left-sided deficit is described though the details are a bit unclear. The patient has had chronic microcytic anemia. Multiple endoscopies have revealed AVM. In addition, iron studies of a year ago show an iron saturation of 2%. She has been taking supplemental iron orally. The patient also suffers from pulmonary hypertension though I am not quite sure how tuned into that the family is. ALLERGIES: SULFA causes nausea. MEDICATIONS: Include: 1. Vitamin C. 2. Aspirin. 3. Atorvastatin. 4. Calcium. 5. Clopidogrel. 6. Diltiazem. 7. Ferrous sulfate. 8. Ketoconazole. 9. Pantoprazole. 10. Vitamin B complex with C. 11. Folic acid. 12. Iron. 13. Vitamin E. PAST MEDICAL HISTORY: Includes hiatal hernia with reflux. Smoking: Former smoker. Details unclear. REVIEW OF SYSTEMS/FAMILY HISTORY/SOCIAL HISTORY: Unable to obtain a review of systems, family history and social history. She seemingly spends her time at home with little activity OBJECTIVE: Temperature 37.2, pulse 71-83, respiratory rate 16 with ventilator set at 16, blood pressure varies between 90/45 to 127/66, O2 sat on FiO2 of 35%, PEEP of 5 is 96% to 99%. General appearance: Elderly, chronically ill-appearing female. Sedated on the ventilator. Eyes pupils are pinpoint. At no reaction to light. Conjunctiva are somewhat pale. Nose and throat could not be examined due to the presence of various tubes. Neck: Thyroid not palpable. Endarterectomy scar present. Chest: Moderately decreased breath sounds. Lung martinez are clear. Flow volume loop on ventilator shows a marked expiratory slowing. Heart: Regular rhythm. Heart tones seem normal. No murmurs appreciated. Abdomen soft. Moderately obese. Liver and spleen not palpable. No masses were palpable. Bowel tones present. Extremities: No clubbing, cyanosis. No pretibial edema. Skin: No rash. Right upper extremity in a sling. LABORATORY DATA: Shows a white count of 11,300 with 80 polymorphonuclears, no bands, 5 lymphocytes, 12 monocytes. Hemoglobin stable at 10.5. Platelet count stable at 451,000. It should be noted that with hemoglobin of 10.5 calculated retic count is 8.2. Sodium on admission was 126, currently 133. Potassium 4.9, chloride 87, CO2 is 28, BUN 23, creatinine 0.7, glucose 69, calcium 8.7 with an albumin earlier in the morning at 3.1. Transaminases are normal as is alkaline phosphatase and total bilirubin. Iron studies show a serum iron of 33, a TIBC of 315, a percent sat of 10%. Respiratory viral panel via PCR is negative. Sputum Gram stain shows a few polys with some mixed normal delroy. Chest x-ray shows some prominent interstitium with some bibasilar airspace opacities. A CT angiogram of the chest using pulmonary embolism protocol shows no evidence of pulmonary emboli. Small bilateral pleural fluid collections. Bibasilar lung consolidation, left greater than right, visible atherosclerosis including coronary vasculature, and a large hiatal hernia. Brain CT shows no recent intracranial bleeds or masses. Cerebral volume loss for age. Chronic small right frontal, right parietal and right occipital infarcts noted. Periventricular and deep white matter small vessel changes. Arterial blood gases on FiO2 of 0.35, rate of 18, PEEP of 5, tidal volume of 350 show a pO2 of 60, pCO2 of 63, pH of 7.36. On admission on 5 L of oxygen by mask showed a pO2 of 85, a pCO2 of 139, pH of 7.05. ASSESSMENT: 1. Ventilatory failure. The family has been schooled to titrate her oxygen delivery to achieve O2 sats in the mid to high 90s. They have noticed that at times when they do this, she does complain of some increased shortness of breath and maybe a bit of confusion. However, yesterday it was more obvious and she became confused, somewhat romario to her episodes of hyponatremia. Found to have marked hypoventilation requiring intubation. Currently on a ventilator. Flow volume loop suggests a significant airway obstruction. The patient does have a nebulizer at home but uses it so rarely that it was covered in dust at the time of her need for the ventilator. Uses the supplemental oxygen. For the moment, we will treat her with nebulized bronchodilators. May need to ultimately use steroids but would like to avoid those given a number of other issues. The patient's family will require further education regarding the use of oxygen in obstructive airways disease. The daughter admits that she is learning a lot in the last day that she has been here regarding issues regarding lung care. 2. Hyponatremia. 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 For the moment, will stop her normal saline, restrict fluid and see if we can slowly correct the sodium at less than about 8 mEq per 24 hours. It is of concern that she had a recent fall, fracturing her humerus. Whether that was related to the residua of hyponatremia is unclear. However, it is what we are left with. Suspect she will have limited use of that arm. Will need to formulate a working diagnosis for the hyponatremia and outlined treatment plan. Hopefully, we can employ a plan that will keep her sodium more normal, less variable and avoid the hyponatremic episodes. 3. Encephalopathy. Certainly multifactorial with the hyponatremia, although that is correcting. Most likely due to her hypercarbia which has been corrected rather quickly with the ventilator. However, pH is normal and we probably have her CO2 at its baseline at this point. Given her unresponsiveness, will need to stop all sedatives to see if she wakes up and whether she has sustained any lasting [employer]ICE SERVICES SPECIALIST damage from her multiple problems. 4. Pulmonary hypertension. Presumably due to the hypoxemia from her obstructive airways disease. Will repeat the echocardiogram to assess RV function, LV function and right-sided pressures. 5. Likely has aspirated. Currently being treated with Zosyn. Has spiked a fever currently. PLAN: 1. Continue current settings on mechanical ventilator. 2. Nebulized bronchodilators. 3. Fluid restriction. 4. Echocardiogram. 5. Continue current antibiotic regimen. ADDITIONAL INFORMATION: The patient has a rather interesting anemia profile. Currently has a hemoglobin of about 10. She does have documented iron-deficiency from about a year ago. However, MCV is markedly elevated at 102 to 105. Will start with examination of the peripheral smear. Thank you so much, Dr. Aleman, for asking us to see this most interesting individual. Will follow her respiratory status closely along with you. TIME SPENT: 1 hour 45 minutes. Discussed a number of issues with the patient's daughter regarding diagnostic studies, differential diagnosis, and treatment issues.
--- NOTE | 2016-11-21 10:36 | PCM.PNMED ---
Subjective Date of Service Nov 21, 2016 Subjective The patient remains awake and alert interacting appropriately to questions and commands. She remains quite stoic denying any significant amount of pain and refusing additional pain medications. Overnight the patient was able to rest comfortably on the Vent without any issues. Comprehensive ROS negative except as listed above. Exam Vital Signs Vital Sign - Last Date Time Temp Pulse Resp B/P Pulse Ox O2 Delivery O2 Flow Rate FiO2 11/21/16 09:25 82 27 118/57 96 40 11/21/16 07:58 Ventilator 11/21/16 07:46 36.7 11/19/16 12:25 6.00 Intake and Output 11/20/16 11/20/16 11/21/16 Cumulative From/Thru 15:00 23:00 07:00 11/17/16 17:44 - 11/21/16 05:54 Intake Total 1287 ml 1446 ml 9506 ml Output Total 225 ml 325 ml 1800 ml Balance 1062 ml 1121 ml 7706 ml Intake Oral 147 ml IV Total 1287 ml 1446 ml 9359 ml Output Urine Total 225 ml 325 ml 1800 ml # Bowel Movements 0 Exam Gen: Alert elderly female on mechanical ventilation, mild acute distress secondary to awareness while being ventilated, fully aware and cogent responding appropriately to questions and commands Neck: Supple, non tender, no JVD, Full ROM HEENT: PERRL, EOMI, no scleral icterus, no conjunctival pallor CV: RRR mild 2/6 systolic ejection murmur Resp: Lungs somewhat coarse at the right base improved since prior exam, diffuse expiratory wheezing with ventilator breath sounds Abd: Soft, non-tender, no organomegaly, no rebound or guarding Extr: Bruising around the proximal right humerus with right arm in sling and both hands restrained Neuro: CN difficult to assess in ventilated patient IVs and Medications IV Fluids 200 ml NS delivered with IV meds Medications Reviewed: Medications were reviewed in detail Lab and Diagnostics Item Value Date Time Red Blood Count 3.25 mil/mm3 L 11/21/16 0254 Mean Corpuscular Volume 101.5 fL H 11/21/16 0254 Mean Corpuscular Hemoglobin 30.8 pg 11/21/16 0254 Mean Corpuscular Hemoglobin Concent 30.3 % L 11/21/16 0254 Red Cell Distribution Width 17.6 % H 11/21/16 0254 Neutrophils (%) (Auto) 97.8 % H 11/21/16 0254 Lymphocytes (%) (Auto) 1.4 % L 11/21/16 0254 Monocytes (%) (Auto) 0.6 % L 11/21/16 0254 Estimat Glomerular Filtration Rate 158 mL/min 11/21/16 0254 Calcium Level 8.2 mg/dL L 11/21/16 0254 Phosphorus Level 3.5 mg/dL 11/21/16 0254 Magnesium Level 2.0 mg/dL 11/21/16 0254 Total Bilirubin 0.3 mg/dL 11/21/16 0254 Aspartate Amino Transf (AST/SGOT) 17 U/L 11/21/16 0254 Alanine Aminotransferase (ALT/SGPT) 15 U/L 11/21/16 0254 Alkaline Phosphatase 94 U/L 11/21/16 0254 Total Protein 5.3 g/dL L 11/21/16 0254 Albumin 2.9 g/dL L 11/21/16 0254 Prealbumin 5 mg/dL L 11/21/16 0254 Procalcitonin 0.22 ng/mL H 11/21/16 0254 Result Diagram: 11/21/16 0254 11/21/16 0914 Microbiology Sputum culture and PCR negative X-Rays, CTs and MRIs X-RAY CHEST ONE VIEW, PORTABLE IMPRESSION: 1. No significant change in mild edema and bibasilar airspace opacities consistent with persistent patchy pulmonary edema versus aspiration or pneumonia. Dictated by: Samir CORREIA Interpreted: Shaji James MD on 11/19/2016 at 8: 58 Transcribed by: PAMELA on 11/19/2016 at 9:00 Approved by: Shaji James M.D. on 11/19/2016 at 10:21 CT BRAIN WITHOUT CONTRAST IMPRESSION: No acute intracranial disease process. Dictated by: Neelam Miller MD, PhD on 11/18/2016 at 10:21 Approved by: Neelam Miller MD, PhD on 11/18/2016 at 10:25 X-RAY CHEST ONE VIEW, PORTABLE IMPRESSION: Persistent mild edema and slight interval increase in medial left basilar airspace opacities consistent with patchy pulmonary edema versus atelectasis or pneumonia. Dictated by: Samir CORREIA Interpreted: Shaji James MD on 11/21/2016 at 10 :01 Transcribed by: PAMELA on 11/21/2016 at 10:02 . Cardiac Echo Impressions Interpretation Summary The left ventricular cavity is small. The ejection fraction is estimated to be 65-70%. The right ventricle is normal in size and function. The aortic valve is not well visualized. Leaflet mobility is mildly reduced. The aortic valve is moderately calcified. There is mild aortic stenosis. There is no hemodynamically significant valvular aortic stenosis. The peak aortic velocity is 2.1 m/sec. The peak aortic velocity on the previous exam was 2.77 m/ sec. There is trace tricuspid regurgitation. Compared to the prior echo exam, there has been a decrease in TR severity. Right ventricular systolic pressure is estimated to be 28 mmHg plus the clinically estimated CVP which cannot be estimated on this exam. Compared to the prior echo exam, there has been a decrease in the severity of pulmonary hypertension. Reading Physician:PM . Assessment & Plan 76 female with past medical history of chronic hyponatremia, COPD on home O2, CVA, bilateral carotid stenosis s/p recent endarterectomy admitted for hyponatremia, hypoxia and encephalopathy likely secondary to hypercapnic respiratory failure. Family had been titrated home O2 to saturation > 95% which may have induced decreased respiratory drive in this patient with severe underlying COPD. The patient has been doing very well on breathing trials for the past 3 days, extubation was withheld due to lack of cuff leak yesterday, there is question as whether this reflects airway inflammation versus small caliber airway in this petite elderly woman. 1. Hypercapnic hypoxic respiratory failure, acute, POA, Improved -Patient with history of COPD with likely undiagnosed AXEL -Family had been titrating home O2 to keep saturation > 95% -ABG completed following admission pH 7.053, pCO2 139, pO2 85.9, HCO3 36.9, subsequent ABG unremarkable -CT angio showed bilateral pleural effusions and infiltrates left greater than right -Intubated following admission with transfer from [facility] to CCU status -1 amp bicarb given prior to intubation -Will continue pressure support trials today, will have anesthesia on hand for potential extubation 2. Acute on chronic hyponatremia. Present on admission. Improved - Per patient's daughter this is been ongoing for the last 15 years, daughter states no diagnosis given - Her baseline sodium said to be 130-133, she regularly drinks salted water - reported not been taking this over the last few days - Sodium level in ED 126 - Given 1 L IV normal saline in the ED - Monitor sodium levels closely - Serum & urine osmolality pending - Moore cath secondary to reported decreased urinary output and accurate record of I's and O's 3. Metabolic encephalopathy, acute, POA. Improved -likely secondary to hypercapnia, though patient does have history of AMS with hyponatremia -CT head negative 4. Possible aspiration, present on admission. Active - Concern for aspiration of blood secondary to recent oral and nasal bleed - Pro calcitonin essentially negative - piperacillin-tazobactam will be continued with likely completion of 5 day course tomorrow - Held Plavix/ASA secondary to daughter's preference and concern for ongoing oral bleeding 5. Leukocytosis, acute, POA, improving -concern for acute infection - most likely PNA given history of recent aspiration -Germain in neutrophils likely related to steroid administration -treatment as above 6. COPD. POA, chronic. Active - Now with acute COPD exacerbation - Albuterol ipratropium q4hr PRN - Dexamethasone to address potential airway inflammation 7. Macrocytic Anemia. Present admission. Ongoing - Hemoglobin/hematocrit 11.1/36.6 upon presentation, downtrending with likely dilutional component - History of GI AVM however macrocytic, - B12 and folate unremarkable with B12 elevated likely secondary to supplementation - Coags unremarkable - Stool guaiac negative - Continue to monitor 8. History CVA with left-sided weakness. Is in remission. Active - Patient does not show any signs or symptoms of repeat injury - Swallow eval when appropriate 9. Hyperlipidemia. Present on admission. Active - restart statin when appropriate 10. Hypertension. Present on admission. Active - Held home Diltiazam pending swallow eval - Current blood pressure 136/62 11. GERD. Present on admission. Active - Held home Protonix by mouth - Protonix switched to famotidine while inpatient Disposition: We will continue to provide mechanical ventilation with very conservative extubation course given underlying co-morbid conditions and fairly justified family concerns about re-intubation. Pain Evaluation: Adequate Pain Control GI Prophylaxis: H2 luca VTE Prophylaxis: Sub-Q Heparin (Unfractionated) VTE Mechanical Devices: Intermittant Pneumatic CD Resuscitation Status: CPR: Attempt Resuscitation Attending Statement The patient was seen and examined together with Dr. Veloz on 11/21/2016 and I agree with the history, exam and plan as outlined in the note above. . Mayo Veloz DO Nov 21, 2016 10:36 Kavin Aleman MD Nov 21, 2016 15:37
--- NOTE | 2016-11-21 11:22 | NUR ---
Stable on current vent settings and support. No ETT air leak with cuff down per RT assessment. Saturations stable low to mid 90's on .30 FiO2. Insignificant secretions with suctioning. Evaluation of airway and plan by Dr Paige, Dr Ruiz, nursing and RT Dwayne Benitez inclusive of pt/family opinion results in decision to continue decadron and ventilatory support for another day and re-evaluate. PST 6/, tolerates well. No s/s distress or increased WOB. Spontaneous volumes 340-360 with RR mid 20's. Restraints discontinued, pt is calm, alert and aware of care and precautions. Daughter Alek here much of day. Care explained as given. Questions answered.
[2016-11-21 12:19] LABS: Magnesium 1.9 mg/dL (1.6-2.6); Phosphorus 3.1 mg/dL (2.5-4.9)
--- NOTE | 2016-11-21 12:34 | PROG NOTE ---
[address] [address] PROGRESS NOTE PATIENT: HILARIA MAHER : 1940 MR#: [id number] ADMIT: 11/17/2016 JOB ID: [id number] DATE: 11/21/2016 PROBLEM: 1. Ventilatory failure. 2. Probable upper airway obstruction. SUBJECTIVE: Throat is a bit sore. Otherwise, she is feeling fine. Breathing comfortably. No chest or abdominal pain. OBJECTIVE: Temperature 36.7. Pulse mid 80s. Respiratory rate 21 on ventilator, 28 on pressure support trials. Blood pressure 118/57. O2 sat on FiO2 of 40%, PEEP of 5 is 96%. I and O shows 2.6 L in, 0.4 L out. General appearance: Awake, alert, appropriate. Carrying on a good conversation in spite of the endotracheal tube. Nodding no and yes to questions and focusing on examiner. Eyes: Conjunctivae are pink. Throat clear. Can see the uvula fairly well. Tongue does not appear appreciably large. Chest: Fair breath sounds bilaterally. Moderately diminished. Some crackles at the left base, especially laterally. Maybe a few crackles at the right base laterally. Mid lung martinez were relatively clear. Mild expiratory squeaking wheeze at the right lower lung field laterally. Heart: Somewhat irregular rhythm. Heart tones seem normal. Monitor shows PACs. Abdomen soft. Nondistended. Nontender. Some bowel tones present. Extremities: No pretibial edema. LABORATORY DATA: Shows a white count of 8700 with 97 polymorphonuclears, 1 lymphocyte, 0.6 monocytes, hemoglobin 10, and platelet count of 329,000. CBC and CMP noted. Marked changes in acid-base status of questionable veracity. Will repeat. Pressure support trial. Doing well on 11/24. However, there is no air leak. Consulted Anesthesiology. Had a long conversation, and Anesthesiology graciously came over to see the patient. Examined the patient. Discussed the situation, especially in light of the fact that she is a Do Not Reintubate. However, that decision was made based on the severity of her lung disease. However, we are now talking about an upper airway obstruction, and the consensus decision was to proceed for another day or so with steroids, as theoretically this would be an imminently fixable problem. ASSESSMENT: 1. Possible upper airway obstruction. No leak or deflation of the cuff. 2. Chronic obstructive pulmonary disease, severe. 3. Heart disease. PLAN: 1. As above. Will continue with the steroids to see about the upper airway obstruction. Will decrease dexamethasone to IV 4 mg q.8. 2. Repeat CMP. Not sure the lab values are reliable. Not convinced that the differential on CBC is correct but do not see that we need to repeat that today. 3. Continue pressure support trials. TIME: Time spent so far in critical care is 65 minutes.
[2016-11-21] MEDS: fentaNYL-PF 50 mCg/mL 2 mL Inj IVPUSH PRN ×2 (13:19→17:08)
[2016-11-21] MEDS: Dexamethasone 4 mg/mL Inj IVPUSH SCH (15:54)
--- NOTE | 2016-11-21 17:01 | NUR ---
Tele is SR 80-90's. Intervals WNL. Occasional episodes non sustained SVT with rates in the 140's. Pt resting at time of RVR, does not appear symptomatic.
--- NOTE | 2016-11-21 17:27 | PCM.PALLBR ---
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 Also noted on admission CT scan of chest to have bilateral infiltrates suggesting pneumonia versus atelectasis. Also note recent ground-level fall with severe proximal right humerus fracture- initially determined nonoperative care was best, but family now wishes this to be reevaluated Palliative medicine consult to assist in determination of goals of care Records obtained from [facility] where she underwent endarterectomy- these are attached to her paper chart. Per consultations with neurology, antiplatelet therapy hereafter should involve only a single agent, so as to minimize the risk of recurrent bleeding. Neurology recommended review of her old medications - if her initial CVA occurred while she was on aspirin, then henceforth she should be on Plavix, and if her initial CVA occurred while she was on Plavix, then she should hereafter be maintained on aspirin. Summary of palliative recommendations: -Symptom management (Pain/other)- appears comfortable/sedated at this time. Continue management per medical/critical care teams -DPOA/Advanced Directives/POLST- no prior POLST. Daughter Alek identified as POA. Discussed her understanding of the patient's wishes, as well as family wishes for aggressive care- at this time All are in agreement that they would want to continue aggressive care, and that the patient did NOT want to be maintained long-term on machines, so once she is extubated, there will be no reintubation. Palliative medicine will continue. Will plan on helping patient and family generate a POLST reflecting their wishes at eventual time of discharge. Patient's daughter does have insight and understanding into the patient's deterioration over the last 6-9 months, as well as the complexity of her multiple medical conditions, and recognizes that she may be approaching end- stage. Up until this time, however, patient and family have continued to hope that with her surgery and other medical treatment that she might return to her baseline of 6-9 months ago. -Family/emotional support- excellent support from her family members in the community Patient Goals: 1. Patient's family wants to be told the truth about her illness, even if it is unpleasant. 2. Patient's family would like to be told prognosis when it can be predicted, to better guide treatment decisions. 3. Patient would choose quality of life over quantity of life, and defines quality as being functional/not bedbound or tied to machines. Additional Medical Diagnoses with primary management by Hospitalist team include : Hypercapnic hypoxic respiratory failure, acute, POA Acute on chronic hyponatremia. Present on admission. Ongoing Metabolic encephalopathy, acute, POA Possible aspiration, present on admission. Ongoing Leukocytosis, acute, POA COPD. has on admission. Ongoing Macrocytic Anemia. Present admission. Ongoing History CVA with left-sided weakness. Is in remission. Ongoing Hyperlipidemia. Present on admission. Ongoing Hypertension. Present on admission. Ongoing GERD. Present on admission. Ongoing Problems: End of Life Preferences Full code at this time Disposition To be determined Resuscitation Status Resuscitation Status: CPR: Attempt Resuscitation POLST Updates/Changes Previous POLST?: No . Pain: Mild Symptom management: Dyspnea Total time 25 minutes; >50% face to face with patient and family, providing counselling regarding plans and recommendations, and in care coordination with her medical teams. Palliative Brief Note Date of Service Nov 21, 2016 . Returned to reevaluate patient. Prior to visiting, reviewed her updated records in the EMR. Reviewed her case on critical care rounds with the team. Spoke with her bedside nurse. Returned later to speak with her daughter and son. She remains intubated and mechanically ventilated. Has made progress on breathing trials. Extubation decision pending per pulmonary medicine Physical exam remained stable. Her daughter's biggest concern today was the status of the right proximal humeral fracture. She was concerned about instability of the fracture. She also requested orthopedic review in case there would be reconsideration of benefit of surgical intervention- consultation and any decisions are pending at this time. Mayo Doyle MD Nov 21, 2016 17:27
[2016-11-22] VITALS (13 sets, daily range): BP systolic 109–145; BP diastolic 55–72; PULSE 72–82; RESP 16–24; O2SAT 78–97
[2016-11-22] MEDS: Chlorhexidine 0.12% 15 mL Oral Solution MT SCH ×7 (00:33→23:53)
[2016-11-22] MEDS: Heparin 5,000 Unit/mL Inj SUBQ SCH ×4 (00:33→23:53)
[2016-11-22] MEDS: Dexamethasone 4 mg/mL Inj IVPUSH SCH ×4 (00:33→23:54)
[2016-11-22] MEDS: Albuterol 2.5 mg/3 mL Inhalation Solution NEB SCH ×5 (03:42→20:24)
[2016-11-22 03:56] LABS: BASOPHILS % (AUTO) 0 % (0-3); EOSINOPHILS % (AUTO) 0.1 % (0-5); Mean Corpuscular Hemoglobin 30.9 pg (27.0-35.0); Mean Corpuscular Volume 102.7 fL (81-100); Platelet Count 311 bil/L (150-400)
[2016-11-22 04:33] LABS: Magnesium 1.9 mg/dL (1.6-2.6); Phosphorus 2.4 mg/dL (2.5-4.9)
[2016-11-22] MEDS: Piperacillin-Tazo 3.375 Gm Inj 3.375 GM in Dextrose 5% Minibag Plus 50 ML IV SCH ×3 (04:56→19:35)
--- NOTE | 2016-11-22 06:03 | NUR ---
Mentation/Resp/Cardiac Patient remains intubated and on mechanical ventilator, vent setting unchanged from last night, awake and alert on vent, light sedation Precedex 0.5mcg/kg/hr, no restraints on and aware of surroundings, patient calm and knows not to pull ET tube, uneventful shift, 325ml urine output, oral care done frequently per patient request, turn Q2H and patient assists with turns, will continue to monitor. Addendum: 11/22/16 at 0627 by MAGGIE SHEIKH RN Amended: Links added.
[2016-11-22] MEDS: Diltiazem 5 mg/mL 5 mL Inj IVPUSH SCH ×4 (06:31→22:24)
[2016-11-22] MEDS: Famotidine Inj 20 MG in IV Premix 1 EACH IV SCH (08:01)
[2016-11-22] MEDS: Dexmedetomidine 400 mCg/100 mL 400 MCG in IV Premix 1 EACH IV SCH ×2 (08:02→22:24)
[2016-11-22] MEDS ORDERED: Furosemide 10 mg/mL 2 mL Inj IVPUSH ONE (08:30)
--- NOTE | 2016-11-22 08:35 | DRSVH ---
PROCEDURE: X-RAY CHEST ONE VIEW, PORTABLE ([id number]) INDICATIONS: fu aspiration TECHNIQUE: One view of the chest was acquired. COMPARISON: [facility], CR, XR CHEST 1VW (PORTABLE), 11/21/2016, 5:36. FINDINGS: Surgical changes and devices: ET tube is approximately 3.2 cm superior to the lashon. Lungs and pleura: No pleural effusions or pneumothorax. Bibasilar lung opacities possibly related to hiatal hernia are stable compared to prior examination. Mediastinum: Mediastinal contours appear normal. Heart size is normal. Bones and chest wall: Left humeral neck fracture is stable compared to prior examination. Overlying s oft tissues appear unremarkable. IMPRESSION: Stable bibasilar opacities which be related to aspiration pneumonia, atelectasis or hiata l hernia. Recommend standard 2 view of the chest when clinically feasible. Dictated by: Neelam Miller MD, PhD on 11/22/2016 at 8:32 Approved by: Neelam Miller MD, PhD on 11/22/2016 at 8:33
[2016-11-22] MEDS: fentaNYL-PF 50 mCg/mL 2 mL Inj IVPUSH PRN (09:12)
[2016-11-22] MEDS ORDERED: TPN Per Pharmacist XX ONE (10:10)
[2016-11-22] MEDS ORDERED: Sodium Chloride LOK Flush 10 mL Syringe IVFLUSH PRN (10:10)
--- NOTE | 2016-11-22 10:20 | NUR ---
NUTRITION FOLLOW-UP: ASSESS: Pt is a 76 YO female admitted to CCU with hypoxia and hyponatremia. She remains intubated and sedated, with possible upper airway obstruction. It is unlikely that an NG could be passed, and even if she is extubated soon, it is likely that her diet could not be advanced in a timely manner. Order received during Case Management rounds this morning to place PICC line and start TPN, as pt. has been NPO x 5 D. PMHX: Chronic hyponatremia, Adams's, palsy, anemia, HTN, COPD, CVA. LABS: Reviewed. Chloride 94, CO2 15, Phos 2.4, Alb 2.8. MEDS: Reviewed. Precedex. GI: No BM reported since admit x 5 D. SKIN: Jayce 14 today. Per Frame Feeder, there are no issues at this time. WT: 65.2 kg, BMI 28.0 kg/m2. Admit weight: 59.6kg, BMI 25.7kg/m2. DIET: NPO x 5 D. EST. NEEDS: vent Kcals: 1190-1490kcal/day (20-25kcal/kg) Pro: 90-110g/day (1.5-1.8g/kg) Fluids: 1490-1785ml/day (25-30ml/kg) NUTRITION DIAGNOSIS: 1) Inadequate oral intake related to decreased ability to consume sufficient energy as evidenced by current NPO / vent status - PERSISTS. NUTRITION INTERVENTION: 1) TPN recommendation discussed with Pharmacy. Patient is at significant refeeding risk. Macronutrient recommendation for today is 125 g dextrose, 45 g amino acid, 25 g lipids to provide 855 kcal, 45 g protein. 2) Once refeeding risk appears to be resolved, recommend slowly advancing macronutrients to goal: 225 g dextrose, 90 g amino acid, 40 g lipids to provide 1525 kcal and 90 g pro (100% estimated needs). 3) If OG able to be placed, recommend enteral feeding with Pulmocare formula. Recommend start at 10 ml/hr x 24 hr. Once refeeding risk resolved, recommend advance by 10ml q 6 hr to goal rate 45 ml/hr to provide 1485 kcal and 61 g pro. (100% kcal and 67% pro needs). Recommend addition of 1 packet ProSource three times per day to better meet protein needs. MONITOR / EVAL: NPO / vent status, TPN tolerance, wt, GI, labs, POC, nutrition status. Will continue to monitor per high nutrition risk guidelines.
[2016-11-22] MEDS: fentaNYL 2,500 mCg/250 mL 2,500 MCG in IV Premix 1 EACH IV SCH (11:48)
--- NOTE | 2016-11-22 12:10 | PCM.PNMED ---
Subjective Date of Service Nov 22, 2016 Subjective The patient continues to be fully awake and alert on mechanical ventilation, she appears to be showing some anxiety about the prolonged nature of her intubation. She steadfastly denies any active pain, but appears to manifest signs of active pain such as wincing and grimacing with any significant movement. Comprehensive ROS negative except as listed above, limited by the patient's inability to communicate much while ventilated. Exam Vital Signs Vital Sign - Last Date Time Temp Pulse Resp B/P Pulse Ox O2 Delivery O2 Flow Rate FiO2 11/22/16 11:53 Ventilator 11/22/16 10:53 72 21 116/55 96 30 11/22/16 08:06 36.8 11/19/16 12:25 6.00 Intake and Output 11/21/16 11/21/16 11/22/16 Cumulative From/Thru 15:00 23:00 07:00 11/17/16 17:44 - 11/22/16 05:00 Intake Total 803 ml 197 ml 76782 ml Output Total 1350 ml 325 ml 3475 ml Balance -547 ml -128 ml 7031 ml Intake Oral 0 ml 0 ml 147 ml IV Total 803 ml 197 ml 73825 ml Output Urine Total 1350 ml 325 ml 3475 ml # Bowel Movements 0 0 0 Exam Gen: Alert elderly female on mechanical ventilation, mild acute distress secondary to awareness while being ventilated, fully aware and cogent responding appropriately to questions and commands Neck: Supple, non tender, no JVD, Full ROM HEENT: PERRL, EOMI, no scleral icterus, no conjunctival pallor CV: RRR mild 2/6 systolic ejection murmur Resp: Lungs somewhat coarse at the right base unchanged since prior exam, diffuse expiratory wheezing with ventilator breath sounds Abd: Soft, non-tender, no organomegaly, no rebound or guarding Extr: Bruising around the proximal right humerus with right arm in sling and both hands restrained Neuro: CN difficult to assess in ventilated patient but appear grossly intact IVs and Medications Medications Reviewed: Medications were reviewed in detail Lab and Diagnostics Item Value Date Time Red Blood Count 3.30 mil/mm3 L 11/22/16 0334 Mean Corpuscular Volume 102.7 fL H 11/22/16 0334 Mean Corpuscular Hemoglobin 30.9 pg 11/22/16 0334 Mean Corpuscular Hemoglobin Concent 30.1 % L 11/22/16 0334 Red Cell Distribution Width 17.4 % H 11/22/16 0334 Neutrophils (%) (Auto) 94.0 % H 11/22/16 0334 Lymphocytes (%) (Auto) 1.8 % L 11/22/16 0334 Monocytes (%) (Auto) 4.0 % 11/22/16 033 Eosinophils (%) (Auto) 0.1 % 11/22/16 033 Basophils (%) (Auto) 0 % 11/22/16 033 Estimat Glomerular Filtration Rate 149 mL/min 11/22/16 033 Calcium Level 9.0 mg/dL 11/22/16 033 Phosphorus Level 2.4 mg/dL L 11/22/16 0334 Magnesium Level 1.9 mg/dL 11/22/16 033 Total Bilirubin 0.3 mg/dL 11/22/16 033 Aspartate Amino Transf (AST/SGOT) 17 U/L 11/22/16 0334 Alanine Aminotransferase (ALT/SGPT) 14 U/L 11/22/16 0334 Alkaline Phosphatase 88 U/L 11/22/16 0334 Total Protein 5.9 g/dL L 11/22/16 0334 Albumin 2.8 g/dL L 11/22/16 0334 Procalcitonin 0.13 ng/mL H 11/22/16 0334 Prothrombin Time 10.7 sec 11/22/16 0334 Prothromb Time International Ratio 1.00 ratio 11/22/16 033 Result Diagram: 11/22/16 03311/22/16 033 Microbiology Sputum culture and PCR negative X-Rays, CTs and MRIs X-RAY CHEST ONE VIEW, PORTABLE IMPRESSION: 1. No significant change in mild edema and bibasilar airspace opacities consistent with persistent patchy pulmonary edema versus aspiration or pneumonia. Dictated by: Samir Chung RRA Interpreted: Shaji James MD on 11/19/2016 at 8: 58 Transcribed by: PAMELA on 11/19/2016 at 9:00 Approved by: Shaji James M.D. on 11/19/2016 at 10:21 CT BRAIN WITHOUT CONTRAST IMPRESSION: No acute intracranial disease process. Dictated by: Neelam Miller MD, PhD on 11/18/2016 at 10:21 Approved by: Neelam Miller MD, PhD on 11/18/2016 at 10:25 X-RAY CHEST ONE VIEW, PORTABLE IMPRESSION: Stable bibasilar opacities which be related to aspiration pneumonia , atelectasis or hiatal hernia. Recommend standard 2 view of the chest when clinically feasible. Dictated by: Neelam Miller MD, PhD on 11/22/2016 at 8:32 Approved by: Neelam Miller MD, PhD on 11/22/2016 at 8:33 . Cardiac Echo Impressions Interpretation Summary The left ventricular cavity is small. The ejection fraction is estimated to be 65-70%. The right ventricle is normal in size and function. The aortic valve is not well visualized. Leaflet mobility is mildly reduced. The aortic valve is moderately calcified. There is mild aortic stenosis. There is no hemodynamically significant valvular aortic stenosis. The peak aortic velocity is 2.1 m/sec. The peak aortic velocity on the previous exam was 2.77 m/ sec. There is trace tricuspid regurgitation. Compared to the prior echo exam, there has been a decrease in TR severity. Right ventricular systolic pressure is estimated to be 28 mmHg plus the clinically estimated CVP which cannot be estimated on this exam. Compared to the prior echo exam, there has been a decrease in the severity of pulmonary hypertension. Reading Physician:KATHARINE . Assessment & Plan 76 female with past medical history of chronic hyponatremia, COPD on home O2, CVA, bilateral carotid stenosis s/p recent endarterectomy admitted for hyponatremia, hypoxia and encephalopathy likely secondary to hypercapnic respiratory failure. Family had been titrated home O2 to saturation > 95% which may have induced decreased respiratory drive in this patient with severe underlying COPD. The patient has been doing very well on breathing trials for the past 3 days, extubation was withheld due to lack of cuff leak yesterday, there is question as whether this reflects airway inflammation versus small caliber airway in this petite elderly woman. 1. Hypercapnic hypoxic respiratory failure, acute, POA, Improved -Patient with history of COPD with likely undiagnosed AXEL -Family had been titrating home O2 to keep saturation > 95% -ABG completed following admission pH 7.053, pCO2 139, pO2 85.9, HCO3 36.9, subsequent ABG unremarkable -CT angio showed bilateral pleural effusions and infiltrates left greater than right -Intubated following admission with transfer from [facility] to CCU status -1 amp bicarb given prior to intubation -Will continue pressure support trials today, will have anesthesia on hand for potential extubation 2. Acute on chronic hyponatremia. Present on admission. Improved - Per patient's daughter this is been ongoing for the last 15 years, daughter states no diagnosis given - Her baseline sodium said to be 130-133, she regularly drinks salted water - reported not been taking this over the last few days - Sodium level in ED 126 - Given 1 L IV normal saline in the ED - Monitor sodium levels closely - Serum & urine osmolality pending - Moore cath secondary to reported decreased urinary output and accurate record of I's and O's 3. Metabolic encephalopathy, acute, POA. Improved -likely secondary to hypercapnia, though patient does have history of AMS with hyponatremia -CT head negative 4. Possible aspiration, present on admission. Active - Concern for aspiration of blood secondary to recent oral and nasal bleed - Pro calcitonin essentially negative - piperacillin-tazobactam will be continued with likely completion of 5 day course tomorrow - Held Plavix/ASA secondary to daughter's preference and concern for ongoing oral bleeding 5. Leukocytosis, acute, POA, improving -concern for acute infection - most likely PNA given history of recent aspiration -Germain in neutrophils likely related to steroid administration -treatment as above 6. COPD. POA, chronic. Active - Now with acute COPD exacerbation - Albuterol ipratropium q4hr PRN - Dexamethasone to address potential airway inflammation 7. Macrocytic Anemia. Present admission. Ongoing - Hemoglobin/hematocrit 11.1/36.6 upon presentation, downtrending with likely dilutional component - History of GI AVM however macrocytic, - B12 and folate unremarkable with B12 elevated likely secondary to supplementation - Coags unremarkable - Stool guaiac negative - Continue to monitor 8. History CVA with left-sided weakness. Is in remission. Active - Patient does not show any signs or symptoms of repeat injury - Swallow eval when appropriate 9. Hyperlipidemia. Present on admission. Active - restart statin when appropriate 10. Hypertension. Present on admission. Active - Held home Diltiazam pending swallow eval - Current blood pressure 136/62 11. GERD. Present on admission. Active - Held home Protonix by mouth - Protonix switched to famotidine while inpatient 12. Fractures right humerus, POA. Active -Patient has been seen as an outpatient by Dr. Agrawal on 11/11/16 for this issue -At that time he determined that the patient was likely not a candidate for surgical intervention due to comorbid conditions -The patient is likely even further removed from surgical candidacy at this point given her prolonged ventilation, however we will clarify this with orthopedics Disposition: We will continue to provide mechanical ventilation with very conservative extubation course given underlying co-morbid conditions and fairly justified family concerns about re-intubation. Pain Evaluation: Adequate Pain Control GI Prophylaxis: H2 luca VTE Prophylaxis: Sub-Q Heparin (Unfractionated) VTE Mechanical Devices: Intermittant Pneumatic CD Resuscitation Status: CPR: Attempt Resuscitation Attending Statement The patient was seen and examined together with Dr. Veloz on 11/22/2016 and I agree with the history, exam and plan as outlined in the note above. . Mayo Veloz DO Nov 22, 2016 12:10 Kavin Aleman MD Nov 22, 2016 16:28
--- NOTE | 2016-11-22 13:07 | PCM.PHAPRO ---
Progress Hyponatremia, hypoxia TPN #1 Indication: Unable to access GI tract due to requirements of airway management Patient ID: Jose Fite 76 female with past medical history of chronic hyponatremia, COPD on home O2, CVA, bilateral carotid stenosis s/p recent endarterectomy with the following active problems: 1. Hypercapnic hypoxic respiratory failure 2. Acute on chronic hyponatremia. 3. Metabolic encephalopathy 4. COPD exacerbation Assessment: I. Volume status/HD Functionally euvolemic, ~ 5L up since admit, VSS p/ Minimal volume in TPN II. Chem Hyponatremia-resolved Hypophosphatemia - repleted III. Glucose control Glucose <105 Follow q6h while on tpn, add SQ regimen if needed IV. Substrate/misc Initiating at < 1/3 of needs, advance as tolerated PARENTERAL NUTRITION ORDERS 1 22-Nov-16 Standard Hang Time: 2100 Substrates Total kcal: 855 AMINO ACIDS 45 g DEXTROSE 125 g Total Volume (mL): 1000 LIPIDS 25 g Sterile Water for Injection QS mL To Infuse Over (hrs): 24 Total Volume 1000 mL At at a rate of (mL/hr): 42 Additives Sodium Chloride 30 mEq "typical" daily requirements Sodium Acetate 30 mEq Sodium 50-120mEq Potassium Chloride 20 mEq Potassium 60-120mEq Potassium Phosphate 30 mEq Phosphate 20-40mEq Calcium Gluconate 4 mEq Magnesium 8-32mEq Magnesium Sulfate 12 mEq Calcium 9-22mEq Acetate* 80-120mEq Chloride* 80-120mEq Regular Insulin units *Depending on acid-base status Famotidine mg Multivitamins 1 std dose Insulin Regimen Trace Elements 1 std dose none Thiamine mg Regular Low Intensity Subcut Folic Acid mg Regular Medium Intensity Subcut Ascorbic Acid mg Regular High Intensity Subcut Regular Insulin Infusion Other: Special Instructions: To be infused via central line only. For delay or inturruption of TPN contact the pharmacist for alternative replacement solution. Signature Date: HILARIA MAHER 2019 Manas Khan Pharm D Nov 22, 2016 13:07
--- NOTE | 2016-11-22 14:17 | NUR ---
Nutrition/pain/ventilator History of hiatal hernia multiple attempts were made by providers to pass an OG/NG tube but were unsuccessful per shift report. Consulted with MD regarding a -Lev feeding tube placement in radiology department vs a central access. Patient remained a high risk for aspiration especially while patient remains on ventilator- MD ordered a PICC line placement to provide the patient with a central access for TPN- patient/family were educated on the matter. Left upper arm PICC line was placed by IV therapist -patient to be started on TPN this evening. Patient complained of pain 5-7/10 to right upper arm fracture area- no additional swelling/change were noted by comparing to this morning at shift change. Patient was medicated with Fentanyl IV pushes PRN but required more frequent administration of pain meds than ordered- consulted with MD patient was started on low dose Fentanyl drip with occasional 2-3ml/20-30mcg boluses during turning and repositioning- pain level improved- continue assessment. Ventilator pressure support started around 0800 this morning patient continued to tolerate PS well. RT deflated ET tube cuff periodical to listen if an air leak around ET tube was present- non noted so far- MD aware- patient remained on IV steroid therapy
--- NOTE | 2016-11-22 14:47 | DRSVH ---
PROCEDURE: X-RAY PICC LINE PLACEMENT BY NURSE ([id number]) INDICATIONS: access for TPN COMPARISON: None. FINDINGS: PICC was placed by the intravenous therapy team from the left side. Fluoroscopic spot hanh m demonstrates tip of PICC in the distal SVC. IMPRESSION: Tip of PICC lies within the distal SVC. Dictated by: Neelam Miller MD, PhD on 11/22/2016 at 14:33 Approved by: Neelam Miller MD, PhD on 11/22/2016 at 14:34
--- NOTE | 2016-11-22 16:32 | PROG NOTE ---
[address] [address] PROGRESS NOTE PATIENT: HILARIA MAHER : 1940 MR#: [id number] ADMIT: 11/17/2016 JOB ID: [id number] DATE: 11/22/2016 PULMONARY CRITICAL CARE FOLLOWUP NOTE: PROBLEM: 1. Ventilatory failure. 2. Upper airway obstruction. 3. Malnutrition. 4. Probable COPD, severe. 5. Hiatal hernia. SUBJECTIVE: Throat is somewhat sore. Otherwise, having no pain. No chest or abdominal pain. Of course, anxious to have the tube out. OBJECTIVE: Pulse 72-86. Respiratory rate low 20s. Blood pressure 132/59, O2 sat on FiO2 of 30%, PEEP of 5 is 96%. There is an aberrant value of 78% O2 sat recorded though saturations currently running in the mid to high 90s. I and O shows 2.2 L in, 1.6 L out. General appearance: Frail. Somewhat tired-appearing. No acute distress. Wakes up easily. Chest: Moderately distant breath sounds. Lung martinez relatively clear. Unable to record peak inspiratory pressure. I think the is lagging behind or perhaps not being recorded accurately. Heart: Heart tones normal. No S3. Abdomen soft. Some bowel tones present. Extremities, at worst, trace pretibial edema. LABORATORY DATA: Shows a white count of 7900 with 94 polymorphonuclears, 1.8 lymphocytes, 4 monos. Hemoglobin stable at 10.2. Platelet count slowly decreasing at 311,000. Sodium 134, potassium 4.6, chloride 94, CO2 is 15, BUN 20, creatinine 0.57, glucose 93. Calcium 9. Phosphorus 2.4. Magnesium 1.9. Bilirubin, transaminases, and alkaline phos all normal. Albumin is 2.8. Procalcitonin continues to decrease at 0.13. Chest x-ray shows unchanged bibasilar opacities. Possibly secondary to the large hiatal hernia. He had a tracheal tube without cuff leak. ASSESSMENT: 1. Ventilatory failure. The patient is doing very well. Has been passing her pressure support trials. Will ask respiratory therapy to check the ventilator regarding the apparent anomalous pressure tracings. In any case, however, there is no air leak. Spoke with anesthesia yesterday. I guess the plan at this point would be to continue the dexamethasone for another day. If no air leak is present by Thursday would extubate without cuff leak in Anesthesia's presence. Will speak with Anesthesia Thursday if that the course eventuates. Do not want to extubate her on the weekend when support is sparse. 2. Phosphorus a bit depleted. Will need to replete that for muscle function. Due to her inability to have an NG tube placed due to the severity of the hiatal hernia, she has been without nutrition. This is day six. TPN has been started. Formula includes phosphorus in the formulation, which hopefully will take care of her deficit over the next day or two. PLAN: 1. Continue dexamethasone. 2. Continue ventilatory support with pressure support trials. 3. Have RT check ventilator. Discussed the findings with both the patient and the patient's family. Although disappointed, they are understanding. The ultimate plan was discussed with them. Time spent so far in far critical care is 35 minutes.
[2016-11-22] MEDS ORDERED: Total Parenteral Nutrition 1 BAG IV SCH (21:00)
[2016-11-22] MEDS: Sodium Chloride LOK Flush 10 mL Syringe IVFLUSH PRN (23:54)
[2016-11-23] VITALS (14 sets, daily range): BP systolic 122–152; BP diastolic 53–70; PULSE 74–100; RESP 16–26; O2SAT 92–97
[2016-11-23] MEDS: Albuterol 2.5 mg/3 mL Inhalation Solution NEB SCH ×6 (00:27→20:22)
--- NOTE | 2016-11-23 00:32 | NUR ---
P) Respiratory/cardiac Pt. continues to have no air leak around ET tube, denies pain, breath sounds coarse and decreased, not much phlegm suctioned from ET tube, clear to white color when there is any. Breath sounds decreased in bases bilaterally and slightly coarse. Peripheral pulses faint, cardiac rhythm sinus, no ectopy noted. I) Meds per 's orders, cont. to monitor, turning q2h and floating heels, great care taken to protect R arm on turning. E) Resting quietly, denies pain at this time. Daughter in attendance.
[2016-11-23] MEDS: fentaNYL 2,500 mCg/250 mL 2,500 MCG in IV Premix 1 EACH IV SCH ×2 (00:41→17:18)
[2016-11-23] MEDS: Propofol Inj 1,000,000 MCG in IV Premix 1 EACH IV SCH ×3 (00:41→21:52)
[2016-11-23] MEDS: Chlorhexidine 0.12% 15 mL Oral Solution MT SCH ×5 (04:27→20:35)
[2016-11-23] MEDS: Piperacillin-Tazo 3.375 Gm Inj 3.375 GM in Dextrose 5% Minibag Plus 50 ML IV SCH ×3 (04:27→20:35)
[2016-11-23 04:38] LABS: BASOPHILS % (AUTO) 0 % (0-3); EOSINOPHILS % (AUTO) 0 % (0-5); MONOCYTES % (AUTO) 3.7 % (4-12); Mean Corpuscular Volume 99.4 fL (81-100); NEUTROPHILS % (AUTO) 94.7 % (40-74); Platelet Count 334 bil/L (150-400)
[2016-11-23 05:03] LABS: INR 1.04 ratio
--- NOTE | 2016-11-23 05:05 | ABG ---
DateTimeAnalyzed 05:00:00 -_ pH ____7.384 - 7.350 7.450 pCO2 ___36.1__ -mmHg 35.0 45.0 pO2 ___41.1__ -mmHg 69.0 116 HCO3- ___21.1__ -mmol/L 22.0 26.0 ABE ___-3.0__ -mmol/L tHb ___10.6__ -g/dL O2Hb ___74.0__ -% COHb ____1.7__ -% MetHb ____1.0__ -% sO2 ___76.1__ -% FIO2 ___30.0__ -% PEEP ____5.0__ -cmH2O Set_RR ___16.0__ -b/min Vt __350.0__ -L Drawn By MK - Date/Time Notified____ 05:04:00 -_ Oxygen Device 1 VENTILATOR - Notified By MK - Notified Whom Clemencia perssinger -____ B 759 -mmHg tO2 ___11.0__ -Vol% Leonel test _Positive -
[2016-11-23 05:18] LABS: Magnesium 1.7 mg/dL (1.6-2.6); Phosphorus 2.6 mg/dL (2.5-4.9)
[2016-11-23] MEDS: Diltiazem 5 mg/mL 5 mL Inj IVPUSH SCH ×4 (06:33→21:11)
[2016-11-23] MEDS: Sodium Chloride LOK Flush 10 mL Syringe IVFLUSH PRN ×2 (06:33→16:20)
--- NOTE | 2016-11-23 06:41 | NUR ---
P) Urinary Pt. has minimal urine output, urine dark fredo and cloudy, only 260ml out per whole shift. Will inform Day shift to pass on to
--- NOTE | 2016-11-23 07:55 | DRSVH ---
PROCEDURE: X-RAY CHEST ONE VIEW, PORTABLE ([id number]) INDICATIONS: fu aspiration TECHNIQUE: One view of the chest was acquired. COMPARISON: [facility], CR, XR CHEST 1VW (PORTABLE), 11/22/2016, 5:18. [facility], CR, XR CHEST 1VW (PORTABLE), 11/21/2016, 5:36. [facility], CT, CT ANGIO CHEST PE, 11/17/2016, 22:25. FINDINGS: Surgical changes and devices: Endotracheal tube has been placed in normal position. Lungs and pleura: No pleural effusions or pneumothorax. Lungs are unchanged with retrocardiac left lower lobe alveolar opacification.. Mediastinum: Mediastinal contours appear normal except for what appears to be a gas-filled esophagus , measuring up to 3.7 cm, in this patient with prior reported large hiatal hernia from recent CT scan . Heart size is normal. Bones and chest wall: No suspicious bony lesions. Overlying soft tissues appear unremarkable. IMPRESSION: 1. Endotracheal tube in normal position. Persistent retrocardiac left lower lobe dense opacificatio n consistent with pneumonia/aspiration. 2. The current study shows what appears to be a moderate degree of gaseous distention of the middle third of the esophagus. This is in the setting of a prior recent CT scan showing what appears to be a large hiatal hernia behind the heart, but differentiation between an esophagogastric mass and large hiatal hernia is difficult without benefit of esophagram or endoscopy. Followup for possible mass i n that area may be warranted. The esophagus was not gas-dilated during prior CT scanning. Dictated by: Shaji James M.D. on 11/23/2016 at 7:43 Approved by: hSaji James M.D. on 11/23/2016 at 7:53
[2016-11-23] MEDS: Heparin 5,000 Unit/mL Inj SUBQ SCH ×2 (08:25→16:16)
[2016-11-23] MEDS: Dexamethasone 4 mg/mL Inj IVPUSH SCH ×2 (08:25→16:16)
[2016-11-23] MEDS: Famotidine Inj 20 MG in IV Premix 1 EACH IV SCH (08:25)
[2016-11-23] MEDS: Dexmedetomidine 400 mCg/100 mL 400 MCG in IV Premix 1 EACH IV SCH (08:26)
--- NOTE | 2016-11-23 11:49 | NUR ---
Social Work: Continued Discharge Plan D: Pt discussed in am rounds with MD. Pt is on day 6 of stay and remains in CCU. CCU team continues efforts to extubate the patient. SENIOR HEALTH CONSULTANT met with the patient and daughter/Alek WATT at bedside. Pt is alert, still on the vent but engaged with SENIOR HEALTH CONSULTANT and daughter. SENIOR HEALTH CONSULTANT introduced the topic of discharge planning. They both confirm that their plan still remains to take the patient home with 24/7 care provided by family. They are opposed to the idea of SNF and state "she will not go anywhere else." Pt is currently open with [facility] for RN, PT, OT. SENIOR HEALTH CONSULTANT will inquire with MD about adding speech therapy for pt at discharge. A: Pt who remains in CCU. P: Anticipate pt to discharge home with family to provide 24/7 care and resumed [facility] for RN, PT, OT; SENIOR HEALTH CONSULTANT to continue to follow. TAD Lara
[2016-11-23] MEDS ORDERED: 0.9% Sodium Chloride 1,000 ML IV SCH ×2 (12:45→14:45)
--- NOTE | 2016-11-23 13:32 | PROG NOTE ---
[address] [address] PROGRESS NOTE PATIENT: HILARIA MAHER : 1940 MR#: [id number] ADMIT: 11/17/2016 JOB ID: [id number] DATE: 11/23/2016 PULMONARY CRITICAL CARE FOLLOWUP NOTE: PROBLEM: 1. Upper airway obstruction. 2. Ventilatory failure. 3. Malnutrition. 4. Probable COPD, severe. 5. Hiatal hernia. SUBJECTIVE: Trying to convey some information. I think the ET tube michael is irritating the roof of her mouth and an area on the gums devoid of teeth. Maybe some slight soreness from the endotracheal tube. No shortness of breath, chest or abdominal pain. Remains rather anxious to have the tube taken out. OBJECTIVE: Temperature 37.6. Pulse 78-87, respiratory rate 22-26, blood pressure 146/67, O2 sat on FiO2 30%, PEEP of 5 is 96%. I and O shows 0.6 L in, 1.5 L out. General appearance: Awake, alert, appropriate. Skin: Rather dry. Mouth: No particular areas of irritation that I can see, but the tube michael does get somewhat localized to a gap in her teeth over her gums. Gums do not look particularly raw or bloody. Chest: Diminished breath sounds. Lung martinez are clear. More of a significant decrease in breath sounds at the right lower lung field. Heart tones seem normal. Regular rhythm at the moment. Monitor showing sinus rhythm. Abdomen soft. Nondistended. Nontender. Extremities: No pretibial edema. LABORATORY: Shows a white count of 7500 with 94 polymorphonuclears, 1 lymphs, 3 monocytes. Hemoglobin 10.2 and stable. Platelet count 334,000 and stable. Sodium 136, potassium 4.5, chloride 94, CO2 19, BUN 22, creatinine 0.6, glucose 94. Calcium 9.4 with albumin of 3. Phosphorus normal at 2.6 though low normal. Magnesium 1.7. Total bilirubin 0.3. AST normal at 15. ALT normal at 15. Alkaline phos 86. Procalcitonin remains minimally detectable at 0.1. Chest x-ray shows the persistent retrocardiac opacification. Venous blood gases show an O2 sat of 76. PCO2 is 36, pH 7.38. ASSESSMENT: 1. Upper airway obstruction. Still without a cuff leak. She has been on steroids now for about four days. Tentative plan will be to remove the tube tomorrow with Anesthesia present or pending Anesthesia's evaluation of the problem. Will rediscuss this with them tomorrow. 2. Ventilatory failure. I think we are overventilating the patient a little bit. I have blown down her CO2 and bicarb. Suspect that is going to be a problem. Need to change her ventilator settings to let her retain a bit of CO2. Current vent settings at a rate of 16, tidal volume of 350. May make that rate of 12 or so and tidal volume of maybe 325. 3. Hiatal hernia. Precludes nutrition. Receiving total parenteral nutrition at the moment. Phosphorus is low normal. Will check the ongoing total parenteral nutrition formula and may be supplemented with 20 millimoles of sodium phos. PLAN: 1. Sodium phos IV 20 millimoles today. 2. Vent change to rate of 12, tidal volume 325. 3. Continue steroids. 4. Re-discuss the situation with Anesthesia in the morning regarding extubation. 5. Lidocaine jelly to sore areas on the mouth. I discussed situation with the family. Still no air leak. Rediscuss extubation with Anesthesia in the morning. Time spent in critical care, 35 minutes.
--- NOTE | 2016-11-23 14:15 | NUR ---
[facility] Signed
--- NOTE | 2016-11-23 14:59 | PCM.PNMED ---
Subjective Date of Service Nov 23, 2016 Subjective Overnight the patient did well. She is awake and alert this morning and communicating very well for been intubated. This morning cuff leak was checked and was negative. As discussed previously in other notes including Dr. Tijerina, extubation will be coordinated tomorrow with anesthesia present. Patient is understanding and appears to be reintubated. Exam Vital Signs Vital Sign - Last Date Time Temp Pulse Resp B/P Pulse Ox O2 Delivery O2 Flow Rate FiO2 11/23/16 13:08 78 152/65 96 30 11/23/16 11:50 37.4 22 Mechanical Ventilator 11/19/16 12:25 6.00 Intake and Output 11/22/16 11/22/16 11/23/16 Cumulative From/Thru 15:00 23:00 07:00 11/17/16 17:44 - 11/23/16 06:06 Intake Total 410 ml 471 ml 14745 ml Output Total 1200 ml 260 ml 4935 ml Balance -790 ml 211 ml 6452 ml Intake Oral 147 ml IV Total 410 ml 471 ml 47635 ml Output Urine Total 1200 ml 260 ml 4935 ml # Bowel Movements 0 Exam Gen: Alert responsive, communicating well HEENT: PERRL, EOMI, no scleral icterus CV: RRR mild 2/6 systolic ejection murmur Resp: CTA with diffuse wheezing and coarse breath sounds likely due to the event Abd: Soft, non-tender, no organomegaly, no rebound or guarding Extr: Bruising around the proximal right humerus with right arm in sling and both hands restrained Neuro: Grossly intact, although it is difficult for patient to perform maneuvers ventilated IVs and Medications Medications Reviewed: Medications were reviewed in detail Lab and Diagnostics Result Diagram: 11/23/16 0425 11/23/16 0425 Microbiology Sputum culture and PCR negative X-Rays, CTs and MRIs X-RAY CHEST ONE VIEW, PORTABLE IMPRESSION: 1. No significant change in mild edema and bibasilar airspace opacities consistent with persistent patchy pulmonary edema versus aspiration or pneumonia. Dictated by: Samir CORREIA Interpreted: Shaji James MD on 11/19/2016 at 8: 58 Transcribed by: PAMELA on 11/19/2016 at 9:00 Approved by: Shaji James M.D. on 11/19/2016 at 10:21 CT BRAIN WITHOUT CONTRAST IMPRESSION: No acute intracranial disease process. Dictated by: Neelam Miller MD, PhD on 11/18/2016 at 10:21 Approved by: Neelam Miller MD, PhD on 11/18/2016 at 10:25 X-RAY CHEST ONE VIEW, PORTABLE IMPRESSION: Stable bibasilar opacities which be related to aspiration pneumonia , atelectasis or hiatal hernia. Recommend standard 2 view of the chest when clinically feasible. Dictated by: Neelam Miller MD, PhD on 11/22/2016 at 8:32 Approved by: Neelam Miller MD, PhD on 11/22/2016 at 8:33 . Cardiac Echo Impressions Interpretation Summary The left ventricular cavity is small. The ejection fraction is estimated to be 65-70%. The right ventricle is normal in size and function. The aortic valve is not well visualized. Leaflet mobility is mildly reduced. The aortic valve is moderately calcified. There is mild aortic stenosis. There is no hemodynamically significant valvular aortic stenosis. The peak aortic velocity is 2.1 m/sec. The peak aortic velocity on the previous exam was 2.77 m/ sec. There is trace tricuspid regurgitation. Compared to the prior echo exam, there has been a decrease in TR severity. Right ventricular systolic pressure is estimated to be 28 mmHg plus the clinically estimated CVP which cannot be estimated on this exam. Compared to the prior echo exam, there has been a decrease in the severity of pulmonary hypertension. Reading Physician:PM . Assessment & Plan 76 female with past medical history of chronic hyponatremia, COPD on home O2, CVA, bilateral carotid stenosis s/p recent endarterectomy admitted for hyponatremia, hypoxia and encephalopathy likely secondary to hypercapnic respiratory failure. Family had been titrated home O2 to saturation > 95% which may have induced decreased respiratory drive in this patient with severe underlying COPD. The patient has been doing very well on breathing trials for the past 3 days, extubation was withheld due to lack of cuff leak yesterday, there is question as whether this reflects airway inflammation versus small caliber airway in this petite elderly woman. 1. Hypercapnic hypoxic respiratory failure, acute, POA, resolved -Patient with history of COPD with likely undiagnosed AXEL; CT evidence of pleural effusions -Family had been titrating home O2 to keep saturation > 95% -ABG completed following admission pH 7.053, pCO2 139, pO2 85.9, HCO3 36.9, subsequent ABG unremarkable -Intubated following admission with transfer from [facility] to CCU status -Extubate tomorrow with anesthesia as there is no air leak today -Continuing dexamethasone 2. Acute on chronic hyponatremia. Present on admission. stable - Per patient's daughter this is been ongoing for the last 15 years, daughter states no diagnosis given although it meets criteria for siADH, hypothyroid, or adrenal insufficiency (although no physical signs) - Her baseline sodium said to be 130-133, she regularly drinks salted water - reported not been taking this over the last few days - Sodium level in ED 126; was given 1L NS in ED - Serum & urine osmolality show a siADH pattern - Teresa - TSH 3. Metabolic encephalopathy, acute, POA. resolved -likely secondary to hypercapnia, though patient does have history of AMS with hyponatremia -CT head negative 4. Possible aspiration, present on admission. Active - Concern for aspiration of blood secondary to recent oral and nasal bleed - Procalcitonin essentially negative - Stopped Zosyn; completed 5 day course - Held Plavix/ASA secondary to daughter's preference and concern for ongoing oral bleeding 5. Leukocytosis, acute, POA, resolved -concern for acute infection - most likely PNA given history of recent aspiration -Germain in neutrophils likely related to steroid administration -treatment as above 6. COPD. POA, chronic. Active - Now with acute COPD exacerbation - Albuterol ipratropium q4hr PRN - Dexamethasone to address potential airway inflammation 7. Macrocytic Anemia. Present admission. Ongoing - Hemoglobin/hematocrit 11.1/36.6 upon presentation, downtrending with likely dilutional component - History of GI AVM however macrocytic - Homocysteine normal; B12/Folate high; MMA pending - Continue to monitor 8. History CVA with left-sided weakness. Is in remission. Active - Patient does not show any signs or symptoms of repeat injury - Swallow eval when appropriate 9. Hyperlipidemia. Present on admission. Active - restart statin when appropriate 10. Hypertension. Present on admission. Active - Held home Diltiazam pending swallow eval - Current blood pressure 136/62 11. GERD. Present on admission. Active - Held home Protonix by mouth - Protonix switched to famotidine while inpatient 12. Fractures right humerus, POA. Active -Patient has been seen as an outpatient by Dr. Agrawal on 11/11/16 for this issue -At that time he determined that the patient was likely not a candidate for surgical intervention due to comorbid conditions -Patient is a surgical candidate Disposition: Patient is medically stable but still is currently on a ventilator due to lack of cuff leak. Plans tomorrow to have anesthesia present and extubate the patient. Currently the patient does not want to be reintubated. Pain Evaluation: Adequate Pain Control GI Prophylaxis: H2 luca VTE Prophylaxis: Sub-Q Heparin (Unfractionated) VTE Mechanical Devices: Intermittant Pneumatic CD Resuscitation Status: CPR: Attempt Resuscitation Attending Statement The patient was seen and examined together with Dr. Rivas on 11/23/2016 and I agree with the history, exam and plan as outlined in the note above. . Tevin Rivas DO Nov 23, 2016 14:59 Kavin Aleman MD Nov 24, 2016 09:02
--- NOTE | 2016-11-23 19:38 | NUR ---
PS vent trail/sedation Ventilator pressure support trial today for over 6h. Patient tolerated PS well. However the patient appeared to be more anxious today with increased generalized discomfort. Patient required frequent attention. Consulted with MD regarding anxiety medications. At the end of ventilator PS trial patient was started on propofol drip at 20mcg/kg/min per MD recommendation. Patient was able to relax and rest. No air leak was detected/audible around ET tube today-Plan to extubate tomorrow by anesthesia Patient and family were made aware by MD. low urine output throughout last night and this morning-consulted with MD - patient was started on NS IV at 100ml/h per MD order. total urine output in 12h day shift was 375ml of fredo urine- continue assessment.
[2016-11-24] VITALS (13 sets, daily range): BP systolic 117–163; BP diastolic 59–73; PULSE 71–112; RESP 13–24; O2SAT 93–99
[2016-11-24] MEDS: Chlorhexidine 0.12% 15 mL Oral Solution MT SCH ×7 (00:12→23:59)
[2016-11-24] MEDS: Dexamethasone 4 mg/mL Inj IVPUSH SCH ×2 (00:12→07:43)
[2016-11-24] MEDS: Dexmedetomidine 400 mCg/100 mL 400 MCG in IV Premix 1 EACH IV SCH (00:12)
[2016-11-24] MEDS: Heparin 5,000 Unit/mL Inj SUBQ SCH ×4 (00:12→23:59)
[2016-11-24] MEDS: Albuterol 2.5 mg/3 mL Inhalation Solution NEB SCH ×6 (00:40→20:16)
[2016-11-24] MEDS: fentaNYL 2,500 mCg/250 mL 2,500 MCG in IV Premix 1 EACH IV SCH (02:07)
[2016-11-24] MEDS: Piperacillin-Tazo 3.375 Gm Inj 3.375 GM in Dextrose 5% Minibag Plus 50 ML IV SCH (04:51)
[2016-11-24 05:07] LABS: BASOPHILS % (AUTO) 0 % (0-3); EOSINOPHILS % (AUTO) 0 % (0-5); MONOCYTES % (AUTO) 4.5 % (4-12); Mean Corpuscular Volume 99.7 fL (81-100); NEUTROPHILS % (AUTO) 91.4 % (40-74); Platelet Count 304 bil/L (150-400)
--- NOTE | 2016-11-24 05:31 | NUR ---
Mentation/HR Pt continues to be a 0 to -1 on RASS score. Able to follow directions and frequently asks for oral care. TELE SR with PAC/PVC. Had a couple runs of tachycardia/v-tach with no symptoms. Frequent rounding and q2h turns continue. Son at bedside throughout night.
[2016-11-24] MEDS: Diltiazem 5 mg/mL 5 mL Inj IVPUSH SCH ×4 (05:38→20:35)
[2016-11-24] MEDS: Famotidine Inj 20 MG in IV Premix 1 EACH IV SCH (07:43)
[2016-11-24] MEDS: Mupirocin 2% 22 Gm Ointment TOPICAL SCH ×2 (09:33→20:35)
--- NOTE | 2016-11-24 10:13 | PCM.PALLBR ---
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 Also noted on admission CT scan of chest to have bilateral infiltrates suggesting pneumonia versus atelectasis. Also note recent ground-level fall with severe proximal right humerus fracture- initially determined nonoperative care was best, but family now wishes this to be reevaluated Palliative medicine consult to assist in determination of goals of care Records obtained from [facility] where she underwent endarterectomy- these are attached to her paper chart. Per consultations with neurology, antiplatelet therapy hereafter should involve only a single agent, so as to minimize the risk of recurrent bleeding. Neurology recommended review of her old medications - if her initial CVA occurred while she was on aspirin, then henceforth she should be on Plavix, and if her initial CVA occurred while she was on Plavix, then she should hereafter be maintained on aspirin. Summary of palliative recommendations: -Symptom management (Pain/other)- appears comfortable at this time. Continue management per medical/critical care teams -DPOA/Advanced Directives/POLST- no prior POLST. Daughter Alek identified as POA. On 11/24 Dr. Eden discussed with pt, dtr and son what patient's wishes are and she clearly indicates she does not want to be reintubated. Her code was changed today to reflect this preference. All are in agreement that they would like to continue current level of care, and that the patient does NOT want to be maintained long-term on machines. Pt would want a trial of antibiotics and a trial of tube feeding in her stomach ( PEG)--she cant have NGT feedings because of her large hiatal hernia. The goal would be short term interventions to see if they could reverse her condition and bring her back to her baseline (or close). Today, Dr. Eden discussed advance care directives and POLST completed, signed by pt's daughter at pt's request. Patient's daughter does have insight and understanding into the patient's deterioration over the last 6-9 months, as well as the complexity of her multiple medical conditions, and recognizes that she may be approaching end- stage. Up until this time, however, patient and family have continued to hope that with her surgery and other medical treatment that she might return to her baseline of 6-9 months ago. -Family/emotional support- excellent support from her family members in the community Patient Goals: 1. Patient's family wants to be told the truth about her illness, even if it is unpleasant. 2. Patient's family would like to be told prognosis when it can be predicted, to better guide treatment decisions. 3. Patient would choose quality of life over quantity of life, and defines quality as being functional/not bedbound or tied to machines. Additional Medical Diagnoses with primary management by Hospitalist team include : Hypercapnic hypoxic respiratory failure, acute, POA Acute on chronic hyponatremia. Present on admission. Ongoing Metabolic encephalopathy, acute, POA Possible aspiration, present on admission. Ongoing Leukocytosis, acute, POA COPD. has on admission. Ongoing Macrocytic Anemia. Present admission. Ongoing History CVA with left-sided weakness. Is in remission. Ongoing Hyperlipidemia. Present on admission. Ongoing Hypertension. Present on admission. Ongoing GERD. Present on admission. Ongoing Problems: End of Life Preferences Full code at this time Disposition To be determined Resuscitation Status Resuscitation Status: CPR: Attempt Resuscitation POLST Updates/Changes Previous POLST?: No . Advanced Care Planning Address: Code status change (Change from FULL CODE to DNAR/DNI) Total time 50 minutes; >50% face to face with patient and/or family, providing counselling regarding plans and recommendations, and in care coordination with his/her medical teams. I also spent an additional 35 minutes counseling for advanced care planning with the patient/the patients family/the surrogate decision maker. Attending Statement Dr. Eden was physically present and available to resident physician and we discussed management recommendations as outlined in his documentation above. I agree with the information presented in this progress note. Palliative Brief Note Date of Service Nov 24, 2016 . Rounded and met with patient's family today. Prior to visiting, records in the EMR were reviewed. Her case was also discussed on critical care rounds with nursing, primary care and critical care teams. Spoke with her bedside nurse and spoke with her daughter and son. The patient remains intubated and mechanically ventilated over the weekend as there has been no cuff leak bringing into question whether this reflects airway inflammation versus a smaller caliber airway. She has done well on breathing trials with anticipated extubation pending pulmonary/critical care team. As discussed previously, the patient and family remains steadfast that they would not want a trial of reintubation if she deteriorated after extubation. Fortunately, she was successfully extubated at 10:45a.m. Dr. Garcia also rounded on the patient in the afternoon and discussed code status with patient and her daughter (who is her DPOAHC), Alek Mcmahan. The patient's code status was changed from FULL CODE to DNAR/do not reintubate. Patient is okay with less invasive support (BiPAP/CPAP). Patient and family is also okay with antibiotics if it can reverse the condition that ails her. They are also okay with a trial period of medically assisted nutrition by tube if it can get the patient back to PO nutrition. Physical examination: General: Alert, elderly female on mechanical ventilation in no acute distress HEENT: EOMI, no scleral icterus CV: Regular, Soft systolic murmur Resp: Lungs somewhat coarse at the right base, diffuse expiratory wheezing with ventilator breath sounds Abd: Soft, non-tender, no organomegaly, no rebound or guarding Neuro: Patient able to follow commands and able to answer yes/no questions. Grossly neurologically intact Labs and imaging studies reviewed in detail. Ashvin Alvarez DO Nov 24, 2016 10:13 Meeta Eden MD Nov 24, 2016 16:11
--- NOTE | 2016-11-24 11:20 | PCM.PNMED ---
Subjective Date of Service Nov 24, 2016 Subjective CRITICAL CARE PROGRESS NOTE, DR. FIGUEROA ATTENDING Melisa Beach is a 76 year old woman with past medical history significant for COPD on 2-3 L home O2, SIADH, CVA with left-sided deficits, right-sided endarterectomy currently under treatment for hypercapnic respiratory failure on the ventilator complicated by upper airway obstruction. Ventilatory day #6 Overnight: No acute events reported. Today: The patient continues to be awake and alert and appropriate. She is free of restraints and responds to commands and is compliant and pleasant. She notes discomfort and soreness in her throat and expresses desire to be extubated. Exam Vital Signs Vital Sign - Last Date Time Temp Pulse Resp B/P Pulse Ox O2 Delivery O2 Flow Rate FiO2 11/24/16 04:44 82 144/59 95 30 11/24/16 04:00 37.3 14 Mechanical Ventilator 11/19/16 12:25 6.00 Intake and Output 11/23/16 11/23/16 11/24/16 Cumulative From/Thru 15:00 23:00 07:00 11/17/16 17:44 - 11/24/16 05:30 Intake Total 863 ml 1392 ml 99059 ml Output Total 375 ml 300 ml 5610 ml Balance 488 ml 1092 ml 8032 ml Intake Oral 147 ml IV Total 863 ml 1392 ml 70570 ml Output Urine Total 375 ml 300 ml 5610 ml # Bowel Movements 0 Exam Gen: frail elderly woman in a hospital bed, on mechanical ventilation, alert, pleasant, in no acute distress Neck: Supple, non tender, no JVD, Full ROM HEENT: PERRL, EOMI, no scleral icterus, no conjunctival pallor. ET tube in place. Cardiovascular: RRR mild 2/6 systolic ejection murmur Respiratory: Lungs somewhat coarse at the right base, diffuse expiratory wheezing. Abdomen: Soft, non-tender, no organomegaly, no rebound or guarding Extremities: Bruising around the proximal right humerus with right arm in sling. Neuro: Grossly neurologically intact Psychiatric: Alert, oriented, appropriate. Normal mood and affect. Lab and Diagnostics Result Diagram: 11/24/16 0500 11/24/16 0500 Microbiology Sputum culture and PCR negative X-Rays, CTs and MRIs X-RAY CHEST ONE VIEW, PORTABLE IMPRESSION: 1. Endotracheal tube in normal position. Persistent retrocardiac left lower lobe dense opacification consistent with pneumonia/aspiration. 2. The current study shows what appears to be a moderate degree of gaseous distention of the middle third of the esophagus. This is in the setting of a prior recent CT scan showing what appears to be a large hiatal hernia behind the heart, but differentiation between an esophagogastric mass and large hiatal hernia is difficult without benefit of esophagram or endoscopy. Followup for possible mass in that area may be warranted. The esophagus was not gas-dilated during prior CT scanning. Dictated by: Shaji James M.D. on 11/23/2016 at 7:43 Cardiac Echo Impressions Interpretation Summary The left ventricular cavity is small. The ejection fraction is estimated to be 65-70%. The right ventricle is normal in size and function. The aortic valve is not well visualized. Leaflet mobility is mildly reduced. The aortic valve is moderately calcified. There is mild aortic stenosis. There is no hemodynamically significant valvular aortic stenosis. The peak aortic velocity is 2.1 m/sec. The peak aortic velocity on the previous exam was 2.77 m/ sec. There is trace tricuspid regurgitation. Compared to the prior echo exam, there has been a decrease in TR severity. Right ventricular systolic pressure is estimated to be 28 mmHg plus the clinically estimated CVP which cannot be estimated on this exam. Compared to the prior echo exam, there has been a decrease in the severity of pulmonary hypertension. Assessment & Plan Melisa Beach is a 76 year old woman with past medical history significant for COPD on 2-3 L home O2, SIADH, CVA with left-sided deficits, right-sided endarterectomy currently under treatment for hypercapnic respiratory failure on the ventilator complicated by upper airway obstruction. Ventilatory day #6 Hypercapnic hypoxic respiratory failure -Patient with history of COPD with likely undiagnosed AXEL; CT evidence of pleural effusions -Family had been titrating home O2 to keep saturation > 95% per history -ABG completed following admission pH 7.053, pCO2 139, pO2 85.9, HCO3 36.9 with prompt resolution of hypercarbia -Plan to extubate today SIADH - Etiology includes emphysema, CVA, pulmonary hypertension - Continue to fluid restrict to 1.5 L - Consider 2 g salt tabs COPD - Albuterol ipratropium q4hr PRN - Prednisone for one more day to taper steroids Macrocytic Anemia with smear concerning for MDS. - Homocysteine normal; B12/Folate high; MMA pending - Management per primary team. Per discussion with the patient's daughter the family would like to forego further work up. History CVA with left-sided weakness Hypertension -Low dose scheduled IV diltiazem given patient's NPO status and inability to pass NG tube. GI prophylaxis DVT prophylaxis GI Prophylaxis: H2 luca VTE Prophylaxis: Sub-Q Heparin (Unfractionated) VTE Mechanical Devices: Intermittant Pneumatic CD Resuscitation Status: CPR: Attempt Resuscitation Vickie Mcgee DO Nov 24, 2016 07:49
[2016-11-24] MEDS: Furosemide 10 mg/mL 2 mL Inj IVPUSH SCH (12:05)
--- NOTE | 2016-11-24 12:55 | NUR ---
Pt extubated at 1045hrs Pt was doing well on PST's. Pt was extubated at 1045 to 1l O2 via NC and sats are low to mid 90's. Pt has a hoarse voice but resp status is otherwise stable.
--- NOTE | 2016-11-24 13:12 | NUR ---
NUTRITION FOLLOW-UP: 2019 ASSESS: 76 YO F admitted to CCU with hypoxia and hyponatremia. Pt extubated today. Speech therapy eval ordered. PMHX: Chronic hyponatremia, Adams's, palsy, anemia, HTN, COPD, CVA. LABS: Glu 112, (11/23): Alb 3.0 MEDS: Reviewed. Decadron, Precedex, Fentanyl. GI: No BM noted. SKIN: Per [employer], there are no issues at this time. WT: 65.4 kg, BMI 28.2 kg/m2. Admit weight: 59.6 kg, BMI 25.7 kg/m2. TPN: 45 g AA, 125 g Dex, 25 g lipids. DIET: NPO x 7 days. ESTIMATED NEEDS: Calories: 6962-4634 kcal/day (25-30 kcal/kg BW) Protein: 60-72 g/day (1.0-1.2 g/kg BW) Fluids: 1731-2281 ml/day (25-30 ml/kg) NUTRITION DIAGNOSIS: 1) Inadequate oral intake related to decreased ability to consume sufficient energy as evidenced by current NPO/vent status - PERSISTS. NUTRITION INTERVENTION: 1) Diet advancement per speech therapy. MONITOR/EVALUATE: NPO status, diet advance, wt, GI, labs, POC, nutrition status. Follow per high nutrition risk guidelines.
--- NOTE | 2016-11-24 16:06 | PCM.PNMED ---
Subjective Date of Service Nov 24, 2016 Subjective Awake and alert, Appears comfortable on SBT with 5/. Follows commands. Exam Vital Signs Vital Sign - Last Date Time Temp Pulse Resp B/P Pulse Ox O2 Delivery O2 Flow Rate FiO2 11/24/16 12:37 86 14 95 Room Air 11/24/16 11:54 36.7 149/68 1.00 11/24/16 10:20 30 Intake and Output 11/23/16 11/23/16 11/24/16 Cumulative From/Thru 15:00 23:00 07:00 11/17/16 17:44 - 11/24/16 05:30 Intake Total 863 ml 1392 ml 36481 ml Output Total 375 ml 300 ml 5610 ml Balance 488 ml 1092 ml 8032 ml Intake Oral 147 ml IV Total 863 ml 1392 ml 29328 ml Output Urine Total 375 ml 300 ml 5610 ml # Bowel Movements 0 Exam Pale, frail elderly woman orally intubated on vent Lungs Decreased BS, scattered crackles, NO wheezes CV RRR with occasional extrasystoles Abd Soft, Normal BTs. Nontender Ext Warm, 1 + edema Neuro Moves all 4 Lab and Diagnostics Result Diagram: 11/24/16 0500 11/24/16 0500 Microbiology Sputum culture and PCR negative X-Rays, CTs and MRIs X-RAY CHEST ONE VIEW, PORTABLE IMPRESSION: 1. Endotracheal tube in normal position. Persistent retrocardiac left lower lobe dense opacification consistent with pneumonia/aspiration. 2. The current study shows what appears to be a moderate degree of gaseous distention of the middle third of the esophagus. This is in the setting of a prior recent CT scan showing what appears to be a large hiatal hernia behind the heart, but differentiation between an esophagogastric mass and large hiatal hernia is difficult without benefit of esophagram or endoscopy. Followup for possible mass in that area may be warranted. The esophagus was not gas-dilated during prior CT scanning. Dictated by: Shaji James M.D. on 11/23/2016 at 7:43 Cardiac Echo Impressions Interpretation Summary The left ventricular cavity is small. The ejection fraction is estimated to be 65-70%. The right ventricle is normal in size and function. The aortic valve is not well visualized. Leaflet mobility is mildly reduced. The aortic valve is moderately calcified. There is mild aortic stenosis. There is no hemodynamically significant valvular aortic stenosis. The peak aortic velocity is 2.1 m/sec. The peak aortic velocity on the previous exam was 2.77 m/ sec. There is trace tricuspid regurgitation. Compared to the prior echo exam, there has been a decrease in TR severity. Right ventricular systolic pressure is estimated to be 28 mmHg plus the clinically estimated CVP which cannot be estimated on this exam. Compared to the prior echo exam, there has been a decrease in the severity of pulmonary hypertension. Assessment & Plan Melisa Beach is a 76 year old woman with past medical history significant for COPD on 2-3 L home O2, SIADH, CVA with left-sided deficits, right-sided endarterectomy currently under treatment for hypercapnic respiratory failure on the ventilator complicated by upper airway obstruction. Ventilatory day #8 IMP Hypercapnic hypoxic respiratory failure -Patient with history of advanced COPD with possible undiagnosed AXEL; -Family had been titrating home O2 to keep saturation > 95% per history. With recent humerus fracture she may have received oral opiates -ABG completed following admission pH 7.053, pCO2 139, pO2 85.9, HCO3 36.9 with prompt resolution of hypercarbia -Has now tolerated vent liberation and family affirms during rounds that we will NOT reintubate in the event of recurrent respiratory failure. Hyponatremia / SIADH. Hypotonic, hypervolemic - Etiology includes emphysema, CVA, pulmonary hypertension - Continue to fluid restrict to 1.5 L - Consider 2 g salt tabs PLAN Extubate Diurese Serial metabolics Change steroids from Decadron to IV Solumedrol Bronchodilators GI Prophylaxis: H2 luca VTE Prophylaxis: Sub-Q Heparin (Unfractionated) VTE Mechanical Devices: Intermittant Pneumatic CD Resuscitation Status: CPR: Attempt Resuscitation Eddy Diamond MD Nov 24, 2016 16:06 VTE Prophylaxis: Sub-Q Heparin (Unfractionated) VTE Mechanical Devices: Intermittant Pneumatic CD Resuscitation Status: CPR: Attempt Resuscitation Eddy Diamond MD Nov 24, 2016 16:06
[2016-11-24] MEDS ORDERED: Furosemide 10 mg/mL 2 mL Inj IVPUSH ONE (16:30)
--- NOTE | 2016-11-24 16:52 | NUR ---
Evaluation completed. Please go to "Notes" then click on "Assessments and Notes" (bottom left corner of screen). Then select appropriate discipline tab on top of screen.
--- NOTE | 2016-11-24 17:17 | PCM.PNMED ---
Subjective Date of Service Nov 24, 2016 Subjective Patient continued to be fully aware and cognisant this morning, a jean marie discussion with family in attendance was conducted in regards to her preferred course of action should the extubation process fail. She affirmed her desire not to re-intubate and her wish to proceed with extubation. The extubation process was without complication, the patient was able to transition to nasal cannula without much difficulty. Her only complaint was hoarseness and throat pain. She continues to deny chest pain, abdominal pain, nausea, vomiting, or dysuria. She does endorse some residual SOB, but feels comfortable off mechanical ventilation. Comprehensive ROS negative except as outlined above. Exam Vital Signs Vital Sign - Last Date Time Temp Pulse Resp B/P Pulse Ox O2 Delivery O2 Flow Rate FiO2 11/24/16 16:26 107 16 95 Nasal Cannula 1.00 11/24/16 11:54 36.7 149/68 11/24/16 10:20 30 Intake and Output 11/23/16 11/23/16 11/24/16 Cumulative From/Thru 15:00 23:00 07:00 11/17/16 17:44 - 11/24/16 05:30 Intake Total 863 ml 1392 ml 54904 ml Output Total 375 ml 300 ml 5610 ml Balance 488 ml 1092 ml 8032 ml Intake Oral 147 ml IV Total 863 ml 1392 ml 58565 ml Output Urine Total 375 ml 300 ml 5610 ml # Bowel Movements 0 Exam Gen: A/O x3 pleasant elderly woman comfortable on NC, NAD Neck: Supple, non tender, no JVD, Full ROM HEENT: PERRL, EOMI, no scleral icterus, no conjunctival pallor, voice hoarse and quiet. CV: RRR mild 2/6 systolic ejection murmur Resp: Lungs CTA BL, no wheezing rales or rhonchi Abd: Soft, non-tender, no organomegaly, no rebound or guarding Extr: Bruising around the proximal right humerus with right arm in sling and both hands restrained Neuro: CN 2-12 grossly intact, no focal neurologic deficit. Psych: mood pleasant and appropriate, very pleased to have ET tube removed IVs and Medications IV Fluids 350 ml NS delivered with IV meds Medications Reviewed: Medications were reviewed in detail Lab and Diagnostics Item Value Date Time Red Blood Count 3.32 mil/mm3 L 11/24/16 0500 Mean Corpuscular Volume 99.7 fL 11/24/16 050 Mean Corpuscular Hemoglobin 31.0 pg 11/24/16 050 Mean Corpuscular Hemoglobin Concent 31.1 % L 11/24/16 050 Red Cell Distribution Width 17.0 % H 11/24/16 050 Neutrophils (%) (Auto) 91.4 % H 11/24/16 0500 Monocytes (%) (Auto) 4.5 % 11/24/16 050 Lymphocytes (%) (Auto) 3.9 % L 11/24/16 050 Eosinophils (%) (Auto) 0 % 11/24/16 050 Basophils (%) (Auto) 0 % 11/24/16499 Estimat Glomerular Filtration Rate 132 mL/min 11/24/16499 Calcium Level 8.9 mg/dL 11/24/16499 Thyroid Stimulating Hormone (TSH) 0.813 uIU/mL 11/24/16 050 Result Diagram: 11/24/16 05011/24/16499 Microbiology Sputum culture and PCR negative MRSA nasal swab positive X-Rays, CTs and MRIs X-RAY CHEST ONE VIEW, PORTABLE IMPRESSION: 1. Endotracheal tube in normal position. Persistent retrocardiac left lower lobe dense opacification consistent with pneumonia/aspiration. 2. The current study shows what appears to be a moderate degree of gaseous distention of the middle third of the esophagus. This is in the setting of a prior recent CT scan showing what appears to be a large hiatal hernia behind the heart, but differentiation between an esophagogastric mass and large hiatal hernia is difficult without benefit of esophagram or endoscopy. Followup for possible mass in that area may be warranted. The esophagus was not gas-dilated during prior CT scanning. Dictated by: Shaji James M.D. on 11/23/2016 at 7:43 Cardiac Echo Impressions Interpretation Summary The left ventricular cavity is small. The ejection fraction is estimated to be 65-70%. The right ventricle is normal in size and function. The aortic valve is not well visualized. Leaflet mobility is mildly reduced. The aortic valve is moderately calcified. There is mild aortic stenosis. There is no hemodynamically significant valvular aortic stenosis. The peak aortic velocity is 2.1 m/sec. The peak aortic velocity on the previous exam was 2.77 m/ sec. There is trace tricuspid regurgitation. Compared to the prior echo exam, there has been a decrease in TR severity. Right ventricular systolic pressure is estimated to be 28 mmHg plus the clinically estimated CVP which cannot be estimated on this exam. Compared to the prior echo exam, there has been a decrease in the severity of pulmonary hypertension. Assessment & Plan 76 female with past medical history of chronic hyponatremia, COPD on home O2, CVA, bilateral carotid stenosis s/p recent endarterectomy admitted for hyponatremia, hypoxia and encephalopathy likely secondary to hypercapnic respiratory failure. Family had been titrated home O2 to saturation > 95% which may have induced decreased respiratory drive in this patient with severe underlying COPD. The patient tolerated extubation on 11/24/16 without any great difficultly, and was transitioned to nasal cannula where she was able to maintain adequate oxygen saturation. Hypercapnic hypoxic respiratory failure, acute, POA, Improved - Patient with history of COPD with likely undiagnosed AXEL - Family had been titrating home O2 to keep saturation > 95% - ABG completed following admission pH 7.053, pCO2 139, pO2 85.9, HCO3 36.9, subsequent ABG unremarkable - CT angio showed bilateral pleural effusions and infiltrates left greater than right - Intubated following admission with transfer from [facility] to CCU status - 1 amp bicarb given prior to intubation - Patient was extubated without difficulty 11/24/16 Acute on chronic hyponatremia. Present on admission. Improved - Per patient's daughter this is been ongoing for the last 15 years, daughter states no diagnosis given - Her baseline sodium said to be 130-133, she regularly drinks salted water - reported not been taking this over the last few days - Sodium level in ED 126 - Monitor sodium levels closely - Moore cath secondary to reported decreased urinary output and accurate record of I's and O's - Patient has been stable since admission, with cautious use of small dose Lasix Metabolic encephalopathy, acute, POA. Resolved -likely secondary to hypercapnia, though patient does have history of AMS with hyponatremia -CT head negative Possible aspiration, present on admission. Active - Concern for aspiration of blood secondary to recent oral and nasal bleed - Pro calcitonin essentially negative - piperacillin-tazobactam discontinued - Held Plavix/ASA secondary to daughter's preference and concern for ongoing oral bleeding COPD. POA, chronic. Active - Now with acute COPD exacerbation - Albuterol ipratropium q4hr PRN - Dexamethasone to address potential airway inflammation Macrocytic Anemia. Present admission. Ongoing - Hemoglobin/hematocrit 11.1/36.6 upon presentation, downtrending with likely dilutional component - History of GI AVM however macrocytic, - B12 and folate unremarkable with B12 elevated likely secondary to supplementation - Coags unremarkable - Stool guaiac negative - Continue to monitor History CVA with left-sided weakness. Is in remission. Active - Patient does not show any signs or symptoms of repeat injury - Swallow eval when appropriate Hyperlipidemia. Present on admission. Active - restart statin when appropriate Hypertension. Present on admission. Active - Held home Diltiazam pending swallow eval - Current blood pressure 136/62 GERD. Present on admission. Active - Held home Protonix by mouth - Protonix switched to famotidine while inpatient Fractured right humerus, POA. Active -Patient has been seen as an outpatient by Dr. Agrawal on 11/11/16 for this issue -At that time he determined that the patient was likely not a candidate for surgical intervention due to comorbid conditions -The patient is likely even further removed from surgical candidacy at this point given her prolonged ventilation -Patient's status was clarified with orthopedics, who continued to defer surgical management and recommended below the elbow mobility exercises with PT -Will repeat UE XR tomorrow AM to assess for interval healing and possible further displacement Leukocytosis, acute, POA, Resolved -concern for acute infection - most likely PNA given history of recent aspiration -Germain in neutrophils likely related to steroid administration -treatment as above Disposition: The patient tolerated her extubation very well, she will likely be able to DC within 2-3 days with needs as determined by PT and her degree of lingering respiratory difficulty Pain Evaluation: Adequate Pain Control GI Prophylaxis: H2 luca VTE Prophylaxis: Sub-Q Heparin (Unfractionated) VTE Mechanical Devices: Intermittant Pneumatic CD Resuscitation Status: CPR: Attempt Resuscitation Attending Statement The patient was seen and examined together with Dr. Veloz on 11/24/16 and I agree with the history, exam and plan as outlined in the note above. Mayo Veloz DO Nov 24, 2016 17:17 Renetta Hodges DO Nov 26, 2016 16:46
--- NOTE | 2016-11-24 18:18 | NUR ---
P: Resp, Hemodynamics,Neuro,Nutrition,Skin I,E: Pt was extubated this am and continues to do well on 1l O2 via NC. She does become anxious at times and her sats will drop, but with reminders to slow down her breathing and relax this improves. Pt has been in SR and was in the 70's to 80's most of the day, but recently, from around 1700hrs she has gone up to 120's. MD was notified and shuttlecock assembler will watch and follow this. 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 Pt was seen by speech and OK for their recommended diet. Pt has had ice chips and done well with these. Mepilex applied to upper mid back to protect the area from the sling. It appears it has been causing some bruising, small 4mm by 1mm lines where the band lays.
[2016-11-24] MEDS: MethylprednisoLONE Sodium Succinate 40 mg/mL Inj IVPUSH SCH (20:35)
[2016-11-25] VITALS (17 sets, daily range): BP systolic 153–204; BP diastolic 65–96; PULSE 89–111; RESP 13–25; O2SAT 92–100
[2016-11-25] MEDS: Albuterol 2.5 mg/3 mL Inhalation Solution NEB SCH ×6 (00:06→19:55)
[2016-11-25] MEDS: Dexmedetomidine 400 mCg/100 mL 400 MCG in IV Premix 1 EACH IV SCH (00:41)
[2016-11-25] MEDS: Propofol Inj 1,000,000 MCG in IV Premix 1 EACH IV SCH (02:57)
[2016-11-25] MEDS: fentaNYL 2,500 mCg/250 mL 2,500 MCG in IV Premix 1 EACH IV SCH (02:57)
[2016-11-25] MEDS: Chlorhexidine 0.12% 15 mL Oral Solution MT SCH ×2 (04:16→08:00)
[2016-11-25 04:39] LABS: BASOPHILS % (AUTO) 0 % (0-3); EOSINOPHILS % (AUTO) 0 % (0-5); MONOCYTES % (AUTO) 4.7 % (4-12); Mean Corpuscular Hemoglobin 30.5 pg (27.0-35.0); Mean Corpuscular Volume 99.5 fL (81-100); NEUTROPHILS % (AUTO) 91.7 % (40-74); Platelet Count 364 bil/L (150-400)
[2016-11-25 04:51] LABS: INR 1.06 ratio
[2016-11-25 05:06] LABS: Magnesium 1.6 mg/dL (1.6-2.6); Phosphorus 2.6 mg/dL (2.5-4.9)
[2016-11-25] MEDS: Diltiazem 5 mg/mL 5 mL Inj IVPUSH SCH (06:00)
[2016-11-25] MEDS: MethylprednisoLONE Sodium Succinate 40 mg/mL Inj IVPUSH SCH ×2 (08:23→20:16)
[2016-11-25] MEDS: Heparin 5,000 Unit/mL Inj SUBQ SCH ×2 (08:23→17:31)
[2016-11-25] MEDS: Mupirocin 2% 22 Gm Ointment TOPICAL SCH ×2 (08:24→20:17)
[2016-11-25] MEDS: Furosemide 10 mg/mL 2 mL Inj IVPUSH SCH (08:24)
[2016-11-25] MEDS: Famotidine Inj 20 MG in IV Premix 1 EACH IV SCH (08:24)
--- NOTE | 2016-11-25 09:58 | PCM.PALLBR ---
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 Also noted on admission CT scan of chest to have bilateral infiltrates suggesting pneumonia versus atelectasis. Also note recent ground-level fall with severe proximal right humerus fracture- initially determined nonoperative care was best, but family now wishes this to be reevaluated Palliative medicine consult to assist in determination of goals of care Records obtained from [facility] where she underwent endarterectomy- these are attached to her paper chart. Per consultations with neurology, antiplatelet therapy hereafter should involve only a single agent, so as to minimize the risk of recurrent bleeding. Neurology recommended review of her old medications - if her initial CVA occurred while she was on aspirin, then henceforth she should be on Plavix, and if her initial CVA occurred while she was on Plavix, then she should hereafter be maintained on aspirin. Summary of palliative recommendations: Symptom management (Pain/other)- some tenderness from her right humerus fracture , will be seeing Ortho today per daughter. Continue management per her hospitalist/Ortho teams -DPOA/Advanced Directives/POLST- no prior POLST. Daughter Alek identified as POA. On 11/24 Dr. Eden discussed with pt, dtr and son what patient's wishes are and she clearly indicates she does not want to be reintubated. Her code was 11/24 to reflect this preference. All are in agreement that they would like to continue current level of care, and that the patient does NOT want to be maintained long-term on machines. Pt would want a trial of antibiotics and a trial of tube feeding in her stomach ( PEG)--she cant have NGT feedings because of her large hiatal hernia. The goal would be short term interventions to see if they could reverse her condition and bring her back to her baseline (or close). 11/24: Dr. Eden discussed advance care directives and POLST completed, signed by pt's daughter at pt's request. Patient's daughter does have insight and understanding into the patient's deterioration over the last 6-9 months, as well as the complexity of her multiple medical conditions, and recognizes that she may be approaching end- stage. Up until this time, however, patient and family have continued to hope that with her surgery and other medical treatment that she might return to her baseline of 6-9 months ago. -Family/emotional support- excellent support from her family members in the community Patient Goals: 1. Patient's family wants to be told the truth about her illness, even if it is unpleasant. 2. Patient's family would like to be told prognosis when it can be predicted, to better guide treatment decisions. 3. Patient would choose quality of life over quantity of life, and defines quality as being functional/not bedbound or tied to machines. Palliative Care Team will sign off case as pt's goals are clear. Pt and dtr are aware of this. Thank you for referral. Please re-consult if needed in future. Thanks. Problems: End of Life Preferences Full code at this time Disposition To be determined Resuscitation Status Resuscitation Status: CPR: Attempt Resuscitation POLST Updates/Changes Previous POLST?: No Total time 35 minutes; >50% face to face with patient and/or family, providing counselling regarding plans and recommendations, and in care coordination with his/her medical teams. Palliative Brief Note Date of Service Nov 25, 2016 . Grady Eden and Kim of Palliative Care Team rounded and met with patient and her daughter at bedside. Prior to visiting, records in the EMR were reviewed. Subjective: pt is alert, smiling, breathing easily and able to participate in conversation, speaking full sentences without any signs of dyspnea. Exam: General: Alert, elderly female in no acute distress HEENT: EOMI, no scleral icterus CV: Regular, Soft systolic ii/vi murmur Resp: Lungs somewhat coarse at the right base Abd: Soft, non-tender, no organomegaly, no rebound or guarding Neuro: nonfocal Labs & Imaging: last 24 hours reviewed. Meeta Eden MD Nov 25, 2016 09:58 Meeta Eden MD Nov 25, 2016 09:58
[2016-11-25] MEDS ORDERED: Furosemide 10 mg/mL 2 mL Inj IVPUSH ONE (11:10)
--- NOTE | 2016-11-25 12:44 | DRSVH ---
PROCEDURE: X-RAY RIGHT SHOULDER, MINIMUM TWO VIEWS ([id number]) INDICATIONS: FRACTURED HUMERUS, EVALUATE FOR FURTHER DISPLACEMENT TECHNIQUE: Three views of the shoulder were acquired. COMPARISON: [facility], CR, XR HUMERUS 2VW RT, 11/11/2016, 14:22. [facility], CR, XR HUMERUS 2VW RT, 10/29/2016, 16:37. [facility], CR, XR SHOULDER MIN 2VW RT, 10/29, 15:17. FINDINGS: Bones: No significant interval change in appearance and alignment of displaced fracture involving th e right humeral head/neck with medial displacement and superior subluxation of the distal fracture co mponent. Acromioclavicular joint is intact. Soft tissues: No suspicious soft tissue calcifications. IMPRESSION: 1. No significant change in the alignment of medially displaced fracture with superior subluxation of the distal fracture component involving the right humeral head/neck fracture. Dictated by: Samir CORREIA Interpreted: Jacobo Garsia MD on 11/25/2016 at 8:07 Transcribed by: GIGI on 11/25/2016 at 15:43 Approved by: Jacobo Garsia M.D. on 11/25/2016 at 21:06
--- NOTE | 2016-11-25 13:46 | PCM.PNMED ---
Subjective Date of Service Nov 25, 2016 Subjective The patient continues to improve for a respiratory and speech standpoint. She relates that over the course of her intubation she experienced vivid and malignant hallucinations which she found quite disturbing. Today she denies chest pain, abdominal pain, nausea, or vomiting. She continues to endorse SOB which is improving, shoulder pain secondary to her fracture, and some anxiety about the course of her recovery. There were no significant overnight events. Comprehensive ROS negative except as outlined above. Exam Vital Signs Vital Sign - Last Date Time Temp Pulse Resp B/P Pulse Ox O2 Delivery O2 Flow Rate FiO2 11/25/16 13:22 89 153/65 11/25/16 12:49 25 96 Nasal Cannula 1.00 11/25/16 12:26 36.8 11/24/16 10:20 30 Intake and Output 11/24/16 11/24/16 11/25/16 Cumulative From/Thru 15:00 23:00 07:00 11/17/16 17:44 - 11/25/16 06:19 Intake Total 913 ml 314 ml 04723 ml Output Total 2300 ml 650 ml 8560 ml Balance -1387 ml -336 ml 6309 ml Intake Oral 50 ml 80 ml 277 ml IV Total 863 ml 234 ml 27219 ml Output Urine Total 2300 ml 650 ml 8560 ml # Bowel Movements 0 0 Exam Gen: A/O x3 pleasant elderly woman comfortable on NC, NAD Neck: Supple, non tender, no JVD, Full ROM HEENT: PERRL, EOMI, no scleral icterus, no conjunctival pallor, voice hoarse and quiet. CV: RRR mild 2/6 systolic ejection murmur Resp: Lungs CTA BL, no wheezing rales or rhonchi Abd: Soft, non-tender, no organomegaly, no rebound or guarding Extr: Bruising around the proximal right humerus with right arm in sling and both hands restrained Neuro: CN 2-12 grossly intact, no focal neurologic deficit. Psych: mood pleasant and appropriate IVs and Medications Medications Reviewed: Medications were reviewed in detail Lab and Diagnostics Item Value Date Time Red Blood Count 3.64 mil/mm3 L 11/25/16 0430 Mean Corpuscular Volume 99.5 fL 11/25/16 0430 Mean Corpuscular Hemoglobin 30.5 pg 11/25/16 0430 Mean Corpuscular Hemoglobin Concent 30.7 % L 11/25/16429 Red Cell Distribution Width 16.8 % H 11/25/16429 Neutrophils (%) (Auto) 91.7 % H 11/25/16429 Lymphocytes (%) (Auto) 3.2 % L 11/25/16429 Monocytes (%) (Auto) 4.7 % 11/25/16429 Basophils (%) (Auto) 0 % 11/25/16429 Eosinophils (%) (Auto) 0 % 11/25/16429 Estimat Glomerular Filtration Rate 135 mL/min 11/25/16429 Calcium Level 9.3 mg/dL 11/25/16429 Phosphorus Level 2.6 mg/dL 11/25/16429 Magnesium Level 1.6 mg/dL 11/25/16429 Total Bilirubin 0.4 mg/dL 11/25/16429 Aspartate Amino Transf (AST/SGOT) 14 U/L 11/25/16429 Alkaline Phosphatase 78 U/L 11/25/16429 Alanine Aminotransferase (ALT/SGPT) 15 U/L 11/25/16429 Total Protein 5.7 g/dL L 11/25/16429 Albumin 3.1 g/dL L 11/25/16429 Procalcitonin 0.12 ng/mL H 11/25/16429 Result Diagram: 11/25/1642911/25/16429 Microbiology Sputum culture and PCR negative MRSA nasal swab positive X-Rays, CTs and MRIs X-RAY CHEST ONE VIEW, PORTABLE IMPRESSION: 1. Endotracheal tube in normal position. Persistent retrocardiac left lower lobe dense opacification consistent with pneumonia/aspiration. 2. The current study shows what appears to be a moderate degree of gaseous distention of the middle third of the esophagus. This is in the setting of a prior recent CT scan showing what appears to be a large hiatal hernia behind the heart, but differentiation between an esophagogastric mass and large hiatal hernia is difficult without benefit of esophagram or endoscopy. Followup for possible mass in that area may be warranted. The esophagus was not gas-dilated during prior CT scanning. Dictated by: Shaji James M.D. on 11/23/2016 at 7:43 Cardiac Echo Impressions Interpretation Summary The left ventricular cavity is small. The ejection fraction is estimated to be 65-70%. The right ventricle is normal in size and function. The aortic valve is not well visualized. Leaflet mobility is mildly reduced. The aortic valve is moderately calcified. There is mild aortic stenosis. There is no hemodynamically significant valvular aortic stenosis. The peak aortic velocity is 2.1 m/sec. The peak aortic velocity on the previous exam was 2.77 m/ sec. There is trace tricuspid regurgitation. Compared to the prior echo exam, there has been a decrease in TR severity. Right ventricular systolic pressure is estimated to be 28 mmHg plus the clinically estimated CVP which cannot be estimated on this exam. Compared to the prior echo exam, there has been a decrease in the severity of pulmonary hypertension. Assessment & Plan 76 female with past medical history of chronic hyponatremia, COPD on home O2, CVA, bilateral carotid stenosis s/p recent endarterectomy admitted for hyponatremia, hypoxia and encephalopathy likely secondary to hypercapnic respiratory failure. Family had been titrated home O2 to saturation > 95% which may have induced decreased respiratory drive in this patient with severe underlying COPD. The patient tolerated extubation on 11/24/16 without any great difficultly, and was transitioned to nasal cannula where she manifested borderline saturation. Upon discharge the patient will require nocturnal and daytime volume ventilation on a PRN basis. Bipap will be insufficient due to the severity of her underlying COPD which is the primary cause of her chronic respiratory failure and hypercapnia. Hypercapnic hypoxic respiratory failure, acute, POA, Improved - Patient with history of COPD with likely undiagnosed AXEL - Family had been titrating home O2 to keep saturation > 95% - ABG completed following admission pH 7.053, pCO2 139, pO2 85.9, HCO3 36.9, subsequent ABG unremarkable - CT angio showed bilateral pleural effusions and infiltrates left greater than right - Intubated following admission with transfer from [facility] to CCU status - 1 amp bicarb given prior to intubation - Patient was extubated without difficulty 11/24/16 - As above, patient will require both nocturnal and daytime volume ventilation on a PRN basis. Bipap will be insufficient due to the severity of her underlying COPD which is the primary cause of her chronic respiratory failure and hypercapnia Acute on chronic hyponatremia. Present on admission. 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 Resolved -likely secondary to hypercapnia, though patient does have history of AMS with hyponatremia -CT head negative Possible aspiration, present on admission. Active - Concern for aspiration of blood secondary to recent oral and nasal bleed - Pro calcitonin essentially negative - piperacillin-tazobactam discontinued - Held Plavix/ASA secondary to daughter's preference and concern for ongoing oral bleeding COPD. POA, chronic. Active - Now with acute COPD exacerbation - Albuterol ipratropium q4hr PRN - Dexamethasone to address potential airway inflammation Macrocytic Anemia. Present admission. Ongoing - Hemoglobin/hematocrit 11.1/36.6 upon presentation, downtrending with likely dilutional component - History of GI AVM however macrocytic, - B12 and folate unremarkable with B12 elevated likely secondary to supplementation - Coags unremarkable - Stool guaiac negative - Continue to monitor History CVA with left-sided weakness. Is in remission. Active - Patient does not show any signs or symptoms of repeat injury - Swallow eval when appropriate Hyperlipidemia. Present on admission. Active - restart statin when appropriate Hypertension. Present on admission. Active - Restarted home Diltiazem 30 mg TID - Current blood pressure 136/62 GERD. Present on admission. Active - Held home Protonix by mouth - Protonix switched to famotidine while inpatient Fractured right humerus, POA. Active -Patient has been seen as an outpatient by Dr. Agrawal on 11/11/16 for this issue -At that time he determined that the patient was likely not a candidate for surgical intervention due to comorbid conditions -The patient is likely even further removed from surgical candidacy at this point given her prolonged ventilation -Patient's status was clarified with orthopedics, who continued to defer surgical management and recommended below the elbow mobility exercises with PT -Repeat XR revealed gross displacement of humeral head with respect to the neck -Dr. Agrawal consulted and has agreed to see the patient today Leukocytosis, acute, POA, Resolved -concern for acute infection - most likely PNA given history of recent aspiration -Germain in neutrophils likely related to steroid administration -treatment as above Disposition: The patient tolerated her extubation very well, she will likely be able to DC within 1-2 days with needs as determined by PT and her degree of lingering respiratory difficulty Pain Evaluation: Adequate Pain Control GI Prophylaxis: H2 luca VTE Prophylaxis: Sub-Q Heparin (Unfractionated) VTE Mechanical Devices: Intermittant Pneumatic CD Resuscitation Status: CPR: Attempt Resuscitation Attending Statement The patient was seen and examined together with Dr. Veloz on 11/25/16 and I agree with the history, exam and plan as outlined in the note above. Mayo Veloz DO Nov 25, 2016 13:46 Renetta Hodges DO Nov 27, 2016 16:44
--- NOTE | 2016-11-25 14:09 | PCM.CONORT ---
Subjective Surgeon Admitting Provider:Casandra Dover DO Attending Provider:Casandra Dover DO Primary Care Physician:Jay Jay Vinson MD Other Provider: Reason for Consultation: right shoulder pain/fracture Allergy Allergies: Coded Allergies: Sulfa (Sulfonamide Antibiotics) (Verified Allergy, Intermediate, NAUSEA, ) Medications Albuterol Neb Soln (Albuterol Neb Soln) 1.25 Mg/3 Ml Vial.neb 1.25 MG INHALATION Q6H PRN PRN For Shortness of Breath (Reported) Last Taken: 1.25 MG on Unknown Date & Time Ascorbic Acid (Acerola C) 500 Mg Wafer 500 MG PO QAM (Reported) Last Taken: 500 MG on 11/16/16 0900 Aspirin Chew (Aspirin Chew) 81 Mg Chew 81 MG PO DAILY Prescribed by: LORENZO MITCHELL DO Last Taken: 81 MG on 11/17/16 0900 Atorvastatin Calcium (Atorvastatin Calcium ) 40 Mg Tablet 40 MG PO HS Prescribed by: LORENZO MITCHELL DO Last Taken: 40 MG on 11/16/16 2100 Calcium Carbonate (Calcium Carbonate) 200 Mg Tab.chew 200 MG PO BIDWM (Reported) Last Taken: 200 MG on 11/17/16 0900 Clopidogrel (Clopidogrel) 75 Mg Tablet 75 MG PO DAILY (Reported) Last Taken: 75 MG on 11/17/16 0900 Diltiazem (Diltiazem) 30 Mg Tablet 30 MG PO TID (Reported) Last Taken: 30 MG on 11/17/16 1400 Ferrous Sulfate (Ferrous Sulfate) 325 Mg Tablet 325 MG PO DAILYWM (Reported) Last Taken: 325 MG on 11/17/16 0900 Ketoconazole (Ketoconazole) 15 Gm Cream..g. 1 APPLIC TP DAILY (Reported) 2% CREAM Last Taken: 1 APPLICATION on 11/17/16 0900 Loratadine (Claritin) 10 Mg Capsule 10 MG PO DAILY PRN PRN For Congestion (Reported) Last Taken: 10 MG on 11/17/[address] (Protonix) 40 Mg Tablet 40 MG PO BID Prescribed by: KAMILLE GRAY MD Last Taken: 40 MG on 11/17/16 0700 Vit B Comp/C/FA/Iron/Vit E (Vitamin B Complex Tablet) 1 Each Tablet 1 EACH PO DAILY (Reported) Last Taken: 1 TABLET on 11/16/16 0900 History History of ENT Problems?: No HEENT History: Denies:: Abnormal Airway Cataracts Difficult Intubation Dysphagia Hearing Problem Sinus Problem Denture Type: None Teeth Condition: Within Normal Limits Hx of Heart Problems?: Yes Cardiovascular History: Positive for:: Hypertension Denies:: AICD Atrial Fibrillation Cardiac Surgery Chest Pain Congestive Heart Failure Edema Pacemaker Valvular Heart Disease Hx of Respiratory Problem?: Yes Respiratory History: Positive for:: Asthma COPD Cough Dyspnea Denies:: Chest Surgery Hemoptysis Pneumonia Tuberculosis Hx Neurologic Problems?: Yes Neurological History: Positive for:: Dizziness Headaches Denies:: Alzheimer's Disease CVA Dementia Parkinson's Disease Seizures Hx of GI Problems?: No Hx of Problems?: No Genitourinary History: Positive for:: Urinary Tract Infection Denies:: HX of Hemodialysis Kidney Stones HX of Peritoneal Dialysis: No Female Hx: Denies:: Currently Endometriosis Pelvic Inflammatory Problems with Breasts? Hx Musculoskeletal Problems?: Yes Musculoskeletal History: Denies:: Back Injury Joint Replacement Musculoskeletal Trauma Other History/Comment Melisa Beach is a 76-year-old right hand dominant patient who presents to the ER and orthopedic evaluation was requested for their ongoing symptoms of the right shoulder. PT with hx of CVA, hyponatremia, hypertension, and COPD, She is on plavix and and ASA and reports that she cannot come off of it for elective surgery per her doctor. The patient states that their pain is a sharp in nature and mild/moderate in severity localized to the deep aspect of the shoulder without radiation. This has been progressing over the past month after falling a month ago and being admitted recently for medical issues. Moreover, the pain is exacerbated by activities, especially with movement. Rest seems to improve the symptoms. There is no reports numbness, tingling, or weakness to the affected distal upper extremity. The pain does wake the patient up at night. The patient denies any fever, chills, nausea, vomiting, chest pain, shortness of breath, or calf tenderness. Previous treatment has included: reduction in ER, sling. Work/hobbies/sports include: presents with daughter She has been intubated for the past week and was flailing her arms per her PCP while being intubated. She is now expanded and x-rays were obtained which show a) proximal humerus fracture, orthopedics was consulted. Hx of Psycho/Social Problems?: No Psycho Social History: Positive for:: Anxiety Denies:: Bipolar Disorder Hx Depression Hx Surgeries?: Yes (CAROTID) Hx Any Other Health Problems?: Yes Other History: Positive for:: Hospitalization (hyponatremia) Thyroid Disease Denies:: Cancer Endocrine Disease History Blood Transfusions: Positive for:: Accept Blood Products? Denies:: Blood Transfuse Reaction Blood Transfusions Hx Diabetes: NoBedside Blood Glucose: 84 Hx Alcohol Use: NoHx Substance Use: No Smoking Status: Former Smoker Have You Smoked inLast 12 mo: No Objective Exam Vital Signs & I/O Vital Sign- Last 8 Hours Date Time Temp Pulse Resp B/P Pulse Ox O2 Delivery O2 Flow Rate FiO2 11/25/16 13:22 89 153/65 11/25/16 12:49 92 25 187/93 96 Nasal Cannula 1.00 11/25/16 12:26 36.8 94 18 204/96 97 Nasal Cannula 1.00 11/25/16 12:09 96 15 93 Nasal Cannula 1.00 11/25/16 08:30 Supplement Oxygen 11/25/16 08:30 36.8 109 22 189/81 99 Nasal Cannula 1.00 11/25/16 08:15 108 11/25/16 08:12 97 15 92 Nasal Cannula 1.00 Intake and Output- Last 8 Hour 11/25/16 Cumulative From/Thru 07:00 11/17/16 17:44 - 11/25/16 06:19 Intake Total 314 ml 38381 ml Output Total 650 ml 8560 ml Balance -336 ml 6309 ml Intake Oral 80 ml 277 ml IV Total 234 ml 96871 ml Output Urine Total 650 ml 8560 ml # Bowel Movements 0 0 Lab & Micro Results Laboratory Tests Test 11/25/16 04:30 White Blood Count 7.8th/mm3 (3.8-10.1) Red Blood Count 3.64mil/mm3 (3.90-5.20) Hemoglobin 11.1g/dL (12.0-15.6) Hematocrit 36.2% (35.0-46.0) Mean Corpuscular Volume 99.5fL (81-100) Mean Corpuscular Hemoglobin 30.5pg (27.0-35.0) Mean Corpuscular Hemoglobin Concent 30.7% (32.0-37.0) Red Cell Distribution Width 16.8% (12.3-15.4) Platelet Count 364bil/L (150-400) Neutrophils (%) (Auto) 91.7% (40-74) Lymphocytes (%) (Auto) 3.2% (14-46) Monocytes (%) (Auto) 4.7% (4-12) Eosinophils (%) (Auto) 0% (0-5) Basophils (%) (Auto) 0% (0-3) Prothrombin Time 11.4sec (8.1-12.5) Prothromb Time International Ratio 1.06ratio Sodium Level 140mEq/L (134-144) Potassium Level 4.0mEq/L (3.5-5.2) Chloride Level 99mEq/L (97-108) Carbon Dioxide Level 26mmol/L (18-29) Blood Urea Nitrogen 19mg/dL (8-27) Creatinine 0.62mg/dL (0.57-1.00) Estimat Glomerular Filtration Rate 135mL/min (>59) Glucose Level 90mg/dL (60-99) Calcium Level 9.3mg/dL (8.5-10.1) Phosphorus Level 2.6mg/dL (2.5-4.9) Magnesium Level 1.6mg/dL (1.6-2.6) Total Bilirubin 0.4mg/dL (0.0-1.2) Aspartate Amino Transf (AST/SGOT) 14U/L (0-50) Alanine Aminotransferase (ALT/SGPT) 15U/L (0-32) Alkaline Phosphatase 78U/L (25-165) Total Protein 5.7g/dL (6.4-8.4) Albumin 3.1g/dL (3.4-5.0) Procalcitonin 0.12ng/mL (0.00-0.08) Microbiology 11/22/16 MRSA (PCR) - Final, Complete Result Diagram: 11/25/16 04311/25/16 043 Review of Systems: Constitutional: Negative, except as otherwise mentioned in the history above. Ophthalmologic: Negative, except as otherwise mentioned in the history above. Cardiovascular: Negative, except as otherwise mentioned in the history above. Respiratory: Negative, except as otherwise mentioned in the history above. Gastrointestinal: Negative, except as otherwise mentioned in the history above. Genitourinary: Negative, except as otherwise mentioned in the history above. Musculoskeletal: Negative, except as otherwise mentioned in the history above. Neurological: Negative, except as otherwise mentioned in the history above. Psychiatric: Negative, except as otherwise mentioned in the history above. Hematologic/Lymphatic: Negative, except as otherwise mentioned in the history above. Allergic/Immunologic: Negative, except as otherwise mentioned in the history above. H&P Surgical Exam Exam Musculoskeletal: Musculoskeletal: CONST: WD,WN, NAD, A+OX3 OCULAR: EOMI, no conjunctivitis/icterus ENT: no deformities, scars or lesions CARDIAC: Pulse is regular. No cyanosis,clubbing,edema RESP: regular,unlabored MSK: normal light touch median, ulnar, radial, lateral antebrachial, axillary nerve distribution. Intact AIN, PIN, u, r, ax motor. 2+ r pulse Right SHOULDER - scars, - swelling, - atrophy or asymmetry. TTP anteriorly ROM R/ L Strength/Pain deferred +painful arc, + pain with passive stretch, + pseudoparalysis, + crepitus Signs Neer's: na Hawkin's: na Belly- Off: na O'Briens: na Apprehension: na Jerk: na Drawer: na Sulcus: na Speed's:na Yergason: na Scapular Winging: na Crossbody Adduction: na Additional Information Two-view x-ray of the right shoulder demonstrates a moderate to severely displaced proximal humeral neck fracture with minimal bone apposition, minimal interval healing noted H&P Preop Plan Impression Right proximal humerus fracture Problems: Plan Nonweightbearing right upper extremity Sling for comfort Recommend elbow, wrist, hand range of motion exercises daily Pain control Patient to follow up in clinic when discharged in 2 weeks We discussed surgical versus nonsurgical treatment options as well as risks and complications associated with each option she has elected for nonoperative treatment given medical comorbidities and unable to stop ASA and plavix for recent carotid bovine graft surgery Continue medical management per primary Please call with questions Please keep the affected extremity elevated when possible. You may use ice and/or heat as needed for comfort. All questions and concerns were addressed. Please feel free to call with any further questions, comments, and/or concerns. Fabio Agrawal MD Nov 25, 2016 14:09
--- NOTE | 2016-11-25 14:39 | NUR ---
NUTRITION FOLLOW-UP: ASSESS: 76 YO F admitted to CCU with hypoxia and hyponatremia. Pt was extubated 11/24. She has been evaluated by ST and was able to have her diet advanced to Dysphagia Mechanical with think liquids. Per pharmacy, pt only received TPN x1 day. She had had minimal PO intake x8days due to no OGT while intubated. Pt has not had a BM x8 days. PMHX: Chronic hyponatremia, Adams's, palsy, anemia, HTN, COPD, CVA. LABS: Reviewed. Alb 3.1 MEDS: Reviewed. Solu-medrol, Lasix GI: No BM noted x8 days SKIN: Per Sole Cutter, there are no issues at this time. WT: 65 kg, BMI 28 kg/m2. Admit weight: 59.6 kg, BMI 25.7 kg/m2. DIET: Dysphagia Mechanical, no PO recorded yet ESTIMATED NEEDS: Calories: 4749-5102 kcal/day (25-30 kcal/kg BW) Protein: 60-72 g/day (1.0-1.2 g/kg BW) Fluids: 0715-3212 ml/day (25-30 ml/kg) NUTRITION DIAGNOSIS: 1) Inadequate oral intake related to decreased ability to consume sufficient energy as evidenced by current NPO/vent status IMPROVING 2) Chew/swallow difficulty related to poor dentition and mastication as evidence by need for dysphagia mechanical diet per ST--IMPROVING NUTRITION INTERVENTION: 1) Continue diet per ST 2) Will add Ensure on L and D trays. 3) Strongly recommend addition of bowel meds to help promote BM- RN aware MONITOR/EVALUATE: PO, BM, diet advance, wt, GI, labs, POC, nutrition status. Follow per high nutrition risk guidelines.
--- NOTE | 2016-11-25 14:54 | PCM.PNMED ---
Subjective Date of Service Nov 25, 2016 Subjective CRITICAL CARE PROGRESS NOTE, DR. FIGUEROA ATTENDING Melisa Hinest is a 76 year old woman with past medical history significant for COPD on 2-3 L home O2, SIADH, CVA with left-sided deficits, right-sided endarterectomy currently under treatment for hypercapnic respiratory failure on the ventilator complicated by upper airway obstruction. Overnight: No acute events reported. Today: The patient was extubated yesterday and is able to vocalize well today. She notes that her arm causes pain but otherwise feels well. Exam Vital Signs Vital Sign - Last Date Time Temp Pulse Resp B/P Pulse Ox O2 Delivery O2 Flow Rate FiO2 11/25/16 13:22 89 153/65 11/25/16 12:49 25 96 Nasal Cannula 1.00 11/25/16 12:26 36.8 11/24/16 10:20 30 Intake and Output 11/24/16 11/24/16 11/25/16 Cumulative From/Thru 15:00 23:00 07:00 11/17/16 17:44 - 11/25/16 06:19 Intake Total 913 ml 314 ml 14394 ml Output Total 2300 ml 650 ml 8560 ml Balance -1387 ml -336 ml 6309 ml Intake Oral 50 ml 80 ml 277 ml IV Total 863 ml 234 ml 12809 ml Output Urine Total 2300 ml 650 ml 8560 ml # Bowel Movements 0 0 Exam Gen: frail elderly woman in a hospital bed, alert, pleasant, in no acute distress Neck: Supple, non tender, no JVD, Full ROM HEENT: PERRL, EOMI, no scleral icterus, no conjunctival pallor Cardiovascular: RRR mild 2/6 systolic ejection murmur Respiratory: Lungs coarse at the right base, diffuse expiratory wheezing. Abdomen: Soft, non-tender, no organomegaly, no rebound or guarding Extremities: Bruising around the proximal right humerus with right arm in sling. Neuro: Grossly neurologically intact Psychiatric: Alert, oriented, appropriate. Normal mood and affect. Lab and Diagnostics Result Diagram: 11/25/16 0430 11/25/16 043 Microbiology Sputum culture and PCR negative MRSA nasal swab positive X-Rays, CTs and MRIs X-RAY CHEST ONE VIEW, PORTABLE IMPRESSION: 1. Endotracheal tube in normal position. Persistent retrocardiac left lower lobe dense opacification consistent with pneumonia/aspiration. 2. The current study shows what appears to be a moderate degree of gaseous distention of the middle third of the esophagus. This is in the setting of a prior recent CT scan showing what appears to be a large hiatal hernia behind the heart, but differentiation between an esophagogastric mass and large hiatal hernia is difficult without benefit of esophagram or endoscopy. Followup for possible mass in that area may be warranted. The esophagus was not gas-dilated during prior CT scanning. Dictated by: Shaji James M.D. on 11/23/2016 at 7:43 Cardiac Echo Impressions Interpretation Summary The left ventricular cavity is small. The ejection fraction is estimated to be 65-70%. The right ventricle is normal in size and function. The aortic valve is not well visualized. Leaflet mobility is mildly reduced. The aortic valve is moderately calcified. There is mild aortic stenosis. There is no hemodynamically significant valvular aortic stenosis. The peak aortic velocity is 2.1 m/sec. The peak aortic velocity on the previous exam was 2.77 m/ sec. There is trace tricuspid regurgitation. Compared to the prior echo exam, there has been a decrease in TR severity. Right ventricular systolic pressure is estimated to be 28 mmHg plus the clinically estimated CVP which cannot be estimated on this exam. Compared to the prior echo exam, there has been a decrease in the severity of pulmonary hypertension. Assessment & Plan Melisa Beach is a 76 year old woman with past medical history significant for COPD on 2-3 L home O2, SIADH, CVA with left-sided deficits, right-sided endarterectomy currently under treatment for hypercapnic respiratory failure on the ventilator complicated by upper airway obstruction. Hypercapnic hypoxic respiratory failure now status post extubation. -Patient has been downgraded from the CCU SIADH - Etiology includes emphysema, CVA, pulmonary hypertension - Continue to fluid restrict to 1.5 L - Consider 2 g salt tabs COPD - Albuterol ipratropium q4hr while awake - Given a course of steroids - Would benefit from keeping O2 saturation between 88 and 92% Macrocytic Anemia with smear concerning for MDS. - Homocysteine normal; B12/Folate high; MMA pending - Management per primary team. Per discussion with the patient's daughter the family would like to forego further work up. History CVA with left-sided weakness Hypertension -Restart blood pressure medications per primary team GI prophylaxis can be stopped DVT prophylaxis We are signing off at this time. Please do not hesitate to contact us with further questions. GI Prophylaxis: H2 luca VTE Prophylaxis: Sub-Q Heparin (Unfractionated) VTE Mechanical Devices: Intermittant Pneumatic CD Resuscitation Status: CPR: Attempt Resuscitation Vickie Mcgee DO Nov 25, 2016 14:47
--- NOTE | 2016-11-25 18:15 | NUR ---
Activity/Diet/GI/Cardiac PT in to work with pt, pt able to sit on edge of bed with assist; see PT note. Q2H turns by nursing. Diet advanced to dysphasia mechanical, requires 1:1 feed; tolerating well. BM x2, very dark brown and loose, incontinent; guaiac sent to lab. SR 90s to ST 120s with activity. SBPs 150s-200, PO labetalol administered in addition to scheduled meds. Pt denies pain. SpO2 mid-90s on 1L NC, attempted to wean to RA, SpO2 dropped to 83-85%.
[2016-11-25] MEDS: Sodium Chloride LOK Flush 10 mL Syringe IVFLUSH PRN (20:17)
[2016-11-26] VITALS (12 sets, daily range): BP systolic 141–182; BP diastolic 63–92; PULSE 78–115; RESP 20–30; O2SAT 92–97
[2016-11-26] MEDS: Heparin 5,000 Unit/mL Inj SUBQ SCH ×3 (00:08→15:41)
--- NOTE | 2016-11-26 06:00 | NUR ---
P) Cardiac/nutrition/ respiratory Pt. alert, somewhat forgetful, fidgets with probes. Cardiac rhythm sinus in the 90's-low 100's, murmur noted,Pitting lower extremity edema. Breath sounds moderately coarse and decreased. SPO2 in the mid 90's on 1L N/C. I) Meds per Dr's orders, turning q2h and floating heels. E) Resting quietly but did not sleep much tonight, tried ice pack for pain as she refuses all pain meds. Minimal relief.
[2016-11-26 06:08] LABS: BASOPHILS % (AUTO) 0.1 % (0-3); EOSINOPHILS % (AUTO) 0 % (0-5); MONOCYTES % (AUTO) 6.1 % (4-12); Mean Corpuscular Hemoglobin 29.5 pg (27.0-35.0); Mean Corpuscular Volume 97.9 fL (81-100); NEUTROPHILS % (AUTO) 89.4 % (40-74); Platelet Count 340 bil/L (150-400)
[2016-11-26 06:35] LABS: Magnesium 1.4 mg/dL (1.6-2.6); Phosphorus 2.4 mg/dL (2.5-4.9)
[2016-11-26 06:50] LABS: INR 1.17 ratio
[2016-11-26] MEDS ORDERED: Magnesium Chloride SR 64 mg ER24 Tablet PO ONE (07:30)
[2016-11-26] MEDS ORDERED: Potassium Phos (mEq) Inj 20 MEQ in Dextrose 5% 250 ML IV ONE (07:30)
[2016-11-26] MEDS: Albuterol 2.5 mg/3 mL Inhalation Solution NEB SCH ×4 (07:46→20:30)
[2016-11-26] MEDS: Mupirocin 2% 22 Gm Ointment TOPICAL SCH ×2 (08:30→20:30)
--- NOTE | 2016-11-26 10:08 | DRSVH ---
PROCEDURE: X-RAY CHEST ONE VIEW, PORTABLE ([id number]) INDICATIONS: fu post extubation TECHNIQUE: One view of the chest was acquired. COMPARISON: [facility], CR, XR HUMERUS 2VW RT, 10/29/2016, 16:37. [facility] , CR, XR CHEST 1VW (PORTABLE), 11/19/2016, 4:50. [facility], CR, XR CHEST 1VW (PORTABLE), 11/22/2016, 5:18. [facility], CR, XR CHEST 1VW (PORTABLE), 11/23/2016, 5:39. FINDINGS: Surgical changes and devices: None. Lungs and pleura: Examination is limited secondary to patient rotation. Within these limits, small l ayering bibasilar pleural effusions are present and bibasilar airspace opacities. No pneumothorax. Mediastinum: Mediastinal contours appear normal. Heart size is enlarged. Bones and chest wall: No suspicious bony lesions. Overlying soft tissues appear unremarkable. Disp laced right humeral neck fracture redemonstrated. IMPRESSION: 1. Limited exam secondary to technique demonstrating bibasilar pleural effusions and airspace opaciti es consistent with compressive atelectasis or consolidation. 2. Displaced right humeral neck fracture. Dictated by: Samir Chung RRA Interpreted: Neelam Miller MD on 11/26/2016 at 9:41 Approved by: Neelam Miller MD, PhD on 11/26/2016 at 10:06
[2016-11-26] MEDS: Furosemide 10 mg/mL 2 mL Inj IVPUSH SCH (10:27)
[2016-11-26] MEDS: MethylprednisoLONE Sodium Succinate 40 mg/mL Inj IVPUSH SCH ×2 (10:27→20:42)
[2016-11-26] MEDS: Ascorbic Acid 500 mg Tablet PO SCH (10:30)
--- NOTE | 2016-11-26 13:16 | NUR ---
NUTRITION FOLLOW-UP: ASSESS: 76 YO F admitted to CCU with hypoxia and hyponatremia. Pt was extubated 11/24. She has been evaluated by ST and was able to have her diet advanced to Dysphagia Mechanical with think liquids. PO has been fair at 25-50% and she had BMx2. PMHX: Chronic hyponatremia, Adams's, palsy, anemia, HTN, COPD, CVA. LABS: Reviewed. K 3.1, Cl 91, park maintainer .49, Glu 101, phos 2.4, mg 1.4, alb 3.3 MEDS: Reviewed. Solu-medrol, Lasix, Vit C GI: BMx2 11/25 SKIN: Per Cantilever Crane Operator, there are no issues at this time. WT: 61.5 kg, BMI 26.5 kg/m2. Admit weight: 59.6 kg, BMI 25.7 kg/m2. DIET: Dysphagia Mechanical, PO 25-50% ESTIMATED NEEDS: Calories: 6698-3741 kcal/day (25-30 kcal/kg BW) Protein: 60-72 g/day (1.0-1.2 g/kg BW) Fluids: 8033-9645 ml/day (25-30 ml/kg) NUTRITION DIAGNOSIS: 1) Inadequate oral intake related to decreased ability to consume sufficient energy as evidenced by current NPO/vent status -IMPROVING 2) Chew/swallow difficulty related to poor dentition and mastication as evidence by need for dysphagia mechanical diet per ST--IMPROVING NUTRITION INTERVENTION: 1) Continue diet per ST and current supplements. Continue to encourage PO intake MONITOR/EVALUATE: PO, ST, wt, GI, labs, POC, nutrition status. Follow per moderate nutrition risk guidelines.
--- NOTE | 2016-11-26 13:52 | PCM.PNMED ---
Subjective Date of Service Nov 26, 2016 Subjective The patient continues with her steady incremental improvement. Her prevailing complaint at this time is disturbing nightmares that linger into the early waking from sleep period. She otherwise states that she is doing well with continued improvement of her voice and breathing post extubation. No significant overnight events Comprehensive ROS negative except as listed above. Exam Vital Signs Vital Sign - Last Date Time Temp Pulse Resp B/P Pulse Ox O2 Delivery O2 Flow Rate FiO2 11/26/16 09:40 36.9 115 24 182/83 95 Nasal Cannula 3.00 11/24/16 10:20 30 Intake and Output 11/25/16 11/25/16 11/26/16 Cumulative From/Thru 15:00 23:00 07:00 11/17/16 17:44 - 11/26/16 06:14 Intake Total 387 ml 234 ml 71280 ml Output Total 1000 ml 1100 ml 59714 ml Balance -613 ml -866 ml 4830 ml Intake Oral 100 ml 377 ml IV Total 287 ml 234 ml 81240 ml Output Urine Total 1000 ml 1100 ml 57234 ml # Bowel Movements 2 2 Exam Gen: A/O x3 pleasant elderly woman comfortable on NC, NAD Neck: Supple, non tender, no JVD, Full ROM HEENT: PERRL, EOMI, no scleral icterus, no conjunctival pallor, voice hoarse and quiet. CV: RRR mild 2/6 systolic ejection murmur Resp: Lungs CTA BL, no wheezing rales or rhonchi Abd: Soft, non-tender, no organomegaly, no rebound or guarding Extr: Bruising around the proximal right humerus with right arm in sling Neuro: CN 2-12 grossly intact, no focal neurologic deficit. Psych: mood pleasant and appropriate IVs and Medications Medications Reviewed: Medications were reviewed in detail Lab and Diagnostics Item Value Date Time Red Blood Count 3.73 mil/mm3 L 11/26/16 0550 Mean Corpuscular Volume 97.9 fL 11/26/16 0550 Mean Corpuscular Hemoglobin 29.5 pg 11/26/16 0550 Mean Corpuscular Hemoglobin Concent 30.1 % L 11/26/16 0550 Red Cell Distribution Width 16.3 % H 11/26/16 0550 Neutrophils (%) (Auto) 89.4 % H 11/26/16 0550 Lymphocytes (%) (Auto) 3.4 % L 11/26/16 0550 Monocytes (%) (Auto) 6.1 % 11/26/16 0550 Eosinophils (%) (Auto) 0 % 11/26/16 0550 Basophils (%) (Auto) 0.1 % 11/26/16 0550 Estimat Glomerular Filtration Rate 177 mL/min 11/26/16 0550 Calcium Level 9.0 mg/dL 11/26/16 0550 Magnesium Level 1.4 mg/dL L 11/26/16 0550 Phosphorus Level 2.4 mg/dL L 11/26/16 0550 Total Bilirubin 0.5 mg/dL 11/26/16 0550 Aspartate Amino Transf (AST/SGOT) 16 U/L 11/26/16 0550 Alanine Aminotransferase (ALT/SGPT) 17 U/L 11/26/16 0550 Alkaline Phosphatase 81 U/L 11/26/16 0550 Total Protein 5.7 g/dL L 11/26/16 0550 Albumin 3.3 g/dL L 11/26/16 0550 Procalcitonin 0.12 ng/mL H 11/26/16 0550 Result Diagram: 11/26/16 0550 11/26/16 0550 Microbiology Sputum culture and PCR negative MRSA nasal swab positive X-Rays, CTs and MRIs X-RAY CHEST ONE VIEW, PORTABLE IMPRESSION: 1. Endotracheal tube in normal position. Persistent retrocardiac left lower lobe dense opacification consistent with pneumonia/aspiration. 2. The current study shows what appears to be a moderate degree of gaseous distention of the middle third of the esophagus. This is in the setting of a prior recent CT scan showing what appears to be a large hiatal hernia behind the heart, but differentiation between an esophagogastric mass and large hiatal hernia is difficult without benefit of esophagram or endoscopy. Followup for possible mass in that area may be warranted. The esophagus was not gas-dilated during prior CT scanning. Dictated by: Shaji James M.D. on 11/23/2016 at 7:43 X-RAY CHEST ONE VIEW, PORTABLE IMPRESSION: 1. Limited exam secondary to technique demonstrating bibasilar pleural effusions and airspace opacities consistent with compressive atelectasis or consolidation. 2. Displaced right humeral neck fracture. Dictated by: Samir CORREIA Interpreted: Neelam Miller MD on 11/26/2016 at 9:41 Approved by: Neelam Miller MD, PhD on 11/26/2016 at 10:06 . Cardiac Echo Impressions Interpretation Summary The left ventricular cavity is small. The ejection fraction is estimated to be 65-70%. The right ventricle is normal in size and function. The aortic valve is not well visualized. Leaflet mobility is mildly reduced. The aortic valve is moderately calcified. There is mild aortic stenosis. There is no hemodynamically significant valvular aortic stenosis. The peak aortic velocity is 2.1 m/sec. The peak aortic velocity on the previous exam was 2.77 m/ sec. There is trace tricuspid regurgitation. Compared to the prior echo exam, there has been a decrease in TR severity. Right ventricular systolic pressure is estimated to be 28 mmHg plus the clinically estimated CVP which cannot be estimated on this exam. Compared to the prior echo exam, there has been a decrease in the severity of pulmonary hypertension. Assessment & Plan 76 female with past medical history of chronic hyponatremia, COPD on home O2, CVA, bilateral carotid stenosis s/p recent endarterectomy admitted for hyponatremia, hypoxia and encephalopathy likely secondary to hypercapnic respiratory failure. Family had been titrated home O2 to saturation > 95% which may have induced decreased respiratory drive in this patient with severe underlying COPD. The patient tolerated extubation on 11/24/16 without any great difficultly, and was transitioned to nasal cannula where she manifested borderline saturation which has continued to improve. Upon discharge the patient will require nocturnal and daytime volume ventilation on a PRN basis. Bipap will be insufficient due to the severity of her underlying COPD which is the primary cause of her chronic respiratory failure and hypercapnia. The patient has been manifesting tachycardia with hypertension, thus diltiazem dosing was increased to attempt to rectify this issue. Hypercapnic hypoxic respiratory failure, acute, POA, Improved - Patient with history of COPD with likely undiagnosed AXEL - Family had been titrating home O2 to keep saturation > 95% - ABG completed following admission pH 7.053, pCO2 139, pO2 85.9, HCO3 36.9, subsequent ABG unremarkable - CT angio showed bilateral pleural effusions and infiltrates left greater than right - Intubated following admission with transfer from [facility] to CCU status - 1 amp bicarb given prior to intubation - Patient was extubated without difficulty 11/24/16 - Patient currently on Mechanical soft diet per speech therapy - As above, patient will require both nocturnal and daytime volume ventilation on a PRN basis. Bipap will be insufficient due to the severity of her underlying COPD which is the primary cause of her chronic respiratory failure and hypercapnia Acute on chronic hyponatremia. Present on admission. 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 Resolved -likely secondary to hypercapnia, though patient does have history of AMS with hyponatremia -CT head negative Possible aspiration, present on admission. Resolved - Concern for aspiration of blood secondary to recent oral and nasal bleed - Pro calcitonin essentially negative - piperacillin-tazobactam discontinued - Held Plavix/ASA secondary to daughter's preference and concern for ongoing oral bleeding COPD. POA, chronic. Active - Now with acute COPD exacerbation - Albuterol ipratropium q4hr PRN Macrocytic Anemia. Present admission. Ongoing - Hemoglobin/hematocrit 11.1/36.6 upon presentation, downtrending with likely dilutional component - History of GI AVM however macrocytic, - B12 and folate unremarkable with B12 elevated likely secondary to supplementation - Coags unremarkable - Stool guaiac negative - Continue to monitor History CVA with left-sided weakness. Is in remission. Active - Patient does not show any signs or symptoms of repeat injury - Swallow eval passed patient currently tolerating diet Hyperlipidemia. Present on admission. Active - restart statin when appropriate Hypertension. Present on admission. Active - Increased Diltiazam today to 60mg TID - Current blood pressure 182/83 Tachycardia - HR 115 - Increased Diltiazam today to 60mg TID GERD. Present on admission. Active - Held home Protonix by mouth - Protonix switched to famotidine while inpatient Fractured right humerus, POA. Active -Patient has been seen as an outpatient by Dr. Agrawal on 11/11/16 for this issue -At that time he determined that the patient was likely not a candidate for surgical intervention due to comorbid conditions -The patient is likely even further removed from surgical candidacy at this point given her prolonged ventilation -Patient's status was clarified with orthopedics, who continued to defer surgical management and recommended below the elbow mobility exercises with PT -Repeat XR revealed gross displacement of humeral head with respect to the neck -Dr. Agrawal consulted and interviewed the patient with no change in plan in regards to her being a poor surgical candidate Leukocytosis, acute, POA, Resolved -concern for acute infection - most likely PNA given history of recent aspiration -Germain in neutrophils likely related to steroid administration -treatment as above Disposition: The patient tolerated her extubation very well, she will likely be able to DC tomorrow days with needs as determined by PT and her degree of lingering respiratory difficulty Pain Evaluation: Adequate Pain Control GI Prophylaxis: H2 luca VTE Prophylaxis: Sub-Q Heparin (Unfractionated) VTE Mechanical Devices: Intermittant Pneumatic CD Resuscitation Status: CPR: Attempt Resuscitation Attending Statement The patient was seen and examined together with Dr. Veloz on 11/26/16 and I agree with the history, exam and plan as outlined in the note above. Mayo Veloz DO Nov 26, 2016 10:27 Renetta Hodges DO Nov 26, 2016 17:08
--- NOTE | 2016-11-26 14:08 | NUR ---
Social Work Note: Readiness for Discharge Data& Assessment: Per MD pt is getting closer to being medically ready for discharge. SW met with pt and pt daughter Alek at bedside to confirm discharge plan and assess for any unmet needs. PT continues to recommend SNF. Pt and pt daughter understand the risks of pt returning home and emphasized the goal for her to return home with 24/7 care and resume [facility] RN, PT and OT. Pt and pt daughter continue to decline SNF. Pt goal is to ambulate out of bed with PT today. Pt and pt daughter denies any other needs at this time. SW to continue to follow if any needs arise. Plan: Anticipated discharge home via POV when medically ready with resume [facility] PT, RN and OT as well as 24/7 family support. Pt and pt daughter denies any other needs at this time. SW to follow up with pt family closer to discharge regarding potential transportation needs. Pt goal is to ambulate and progress with PT enough to not require any additional assistance going home or while at home. SW to continue to follow if any needs arise. TAD Ramsey
--- NOTE | 2016-11-26 18:06 | NUR ---
Tele/BP Denies chest pain/pressure/discomfort. Tele SR/tach 90s-120s with activity with PVCs. BP 180s systolic this AM. 140s-160s this afternoon. Reports "some" SOB at rest. SPO2 2-3L NC, SPO2 mid 90s. RR at rest mid 20s, increases to high 20s low 30s with movement. Home O2 at baseline 1-2LNC. Reports productive cough. No reports of n/v/d/c or abdominal pain. Patient incontinent of stool this AM, up to BSC x1. Brief on. Patient sitting up in chair most of afternoon, tolerating well. Moore patent draining dark yellow urine to gravity.
[2016-11-27] MEDS: Heparin 5,000 Unit/mL Inj SUBQ SCH ×2 (00:58→08:13)
[2016-11-27 01:57] LABS: BASOPHILS % (AUTO) 0 % (0-3); EOSINOPHILS % (AUTO) 0 % (0-5); MONOCYTES % (AUTO) 4.4 % (4-12); Mean Corpuscular Hemoglobin 30.4 pg (27.0-35.0); Mean Corpuscular Volume 97.8 fL (81-100); Platelet Count 280 bil/L (150-400)
[2016-11-27 02:21] LABS: Magnesium 1.5 mg/dL (1.6-2.6); Phosphorus 2.9 mg/dL (2.5-4.9)
[2016-11-27] MEDS ORDERED: Mag Sulf 4 Gm/100 mL IV Premix (Mag < 1.6 & Creat < 2) IV ONE (03:15)
[2016-11-27] MEDS ORDERED: KCl 40 mEq/500 mL D5W(K 3 - 3.7 & Creat < 2) IV ONE (03:15)
[2016-11-27 03:58] VITALS: PULSE 86
[2016-11-27 03:59] VITALS: BP 174/69; PULSE 81; RESP 27; O2SAT 97
--- NOTE | 2016-11-27 05:47 | NUR ---
K+/MAG Pt had 1.5 mag and 3.6 K+, On K+/Mag protocol gave 40 mEq K+ and 4Gm Mag IV rider. Pt slept in her chair all night, stated that she was more comfortable in the chair because it gives more support for her right arm that is is a sling. Uneventful night, SR 70-80's, pt was hypertensive, denied pain. No other issues noted at this time.
[2016-11-27 07:32] VITALS: PULSE 88; RESP 24; O2SAT 96
[2016-11-27] MEDS: Albuterol 2.5 mg/3 mL Inhalation Solution NEB SCH (07:32)
[2016-11-27] MEDS ORDERED: Magnesium Sulf 2 Gm/50mL Water 2 GM in IV Premix 1 EACH IV ONE (07:35)
[2016-11-27 07:49] VITALS: PULSE 89
[2016-11-27] MEDS: Furosemide 10 mg/mL 2 mL Inj IVPUSH SCH (08:13)
[2016-11-27] MEDS: MethylprednisoLONE Sodium Succinate 40 mg/mL Inj IVPUSH SCH (08:13)
[2016-11-27] MEDS: Ascorbic Acid 500 mg Tablet PO SCH (08:14)
[2016-11-27] MEDS: Mupirocin 2% 22 Gm Ointment TOPICAL SCH (08:14)
[2016-11-27 08:19] VITALS: BP 167/83; PULSE 79; RESP 33; O2SAT 99
[2016-11-27] MEDS ORDERED: DILT30TA PO (10:13)
--- NOTE | 2016-11-27 10:14 | NUR ---
Social Work: Readiness for Discharge D: Pt discussed in am rounds. Pt is medically stable for discharge today. Family is now stating that they cannot take the patient home in this condition and would like to discuss SNF with MOLD REPAIRER, specifically [facility] [place]. Order placed by MD to coordinate SNF. MOLD REPAIRER met with pt and daughter/POA. They both agree that a short SNF stay is necessary and that their preference is for [facility]. Their alternative would be for [facility]. t/c to [facility] [place]; MOLD REPAIRER spoke with Emy to provide referral. They are reviewing. HENRIETTAR Completed PPW on chart. A: Pt who will require skilled rehab for continued strengthening and gait stability. P: Anticipate pt to discharge to skilled rehab; [facility] is reviewing for possible admission. MOLD REPAIRER to update MD and pt once decision is made. TAD Lara Addendum: 11/27/16 at 1101 by INDIRA FITZGERALD Pt has been accepted at [facility] [place] with Dr. King to follow. aware
--- NOTE | 2016-11-27 10:26 | PCM.DIMED ---
Mayo Veloz DO 11/27/16 1014: Discharge Instructions Date of Service Nov 27, 2016 Dates of Hospitalization November 17, 2016 at 21:39 Discharge Diagnosis Discharge Diagnosis Hypercapnic hypoxic respiratory failure, acute, POA, Improved: When you arrived you were not breathing very well at all. This was causing a toxic build up of carbon dioxide. For this reason we had to put you on a breathing machine until you were able to resume breathing on your own. I am very encouraged by the progress you have made since removing the breathing tube. You may need to start on a more aggressive supplemental oxygen system after leaving here, at this point you are breathing pretty well just on the nasal oxygen. I will have the respiratory therapy company follow up with you at your facility to see if you may need the Trilogy system for further breathing support. Acute on chronic hyponatremia. Present on admission. Improved: This has actually turned out to not be much of an issue here at the hospital. Please continue to look out for the symptoms you have had in the past when your sodium gets too low. If you find yourself drinking a lot of water please notify your primary care doctor to see if your sodium is dropping. Metabolic encephalopathy, acute, POA. Resolved: As above when you arrived you were not breathing well. This was causing a build up of carbon dioxide in your system which made you sleepy and confused. Please keep an eye out for similar symptoms in the future. Possible aspiration, present on admission. Resolved: There was some initial concern about you aspirating some blood into your lungs given the nose bleed you were having when you arrived. Thus far we have not had any great concern for an infection from this process while you were here in the hospital. Fractured right humerus, POA. Active: This will be followed up by Dr. Agrawal in his clinic in the next 2 weeks. Please continue to do range of motion exercises with your wrist as described by physical therapy. COPD. POA, chronic. Active: Macrocytic Anemia. Present admission. Ongoing History CVA with left-sided weakness. Is in remission. Active Hyperlipidemia. Present on admission. Active Hypertension. Present on admission. Active Tachycardia GERD. Present on admission. Active . Medication Instructions Additional med instructions We have increased your Diltiazem to 60 mg three times per day. You may be able to transition over to the extended release formula that would be 180 mg once per day, but given that your heart rate just became stable with this medication we don't want to make any adjustments at this time. I know that three times per day dosing is problematic so you can discuss going over to the extended release formula with your primary care provider. Diet Discharge Diet: Heart Healthy (Please take it easy on your stomach for the next few weeks. You went several days without eating, and probably moved a little too fast introducing heavy foods back into your diet which has probably caused your diarrhea. Start slow with foods like oatmeal, toast, vegetables, and non greasy protein like chicken or fish.) Activity Discharge Activity: Other (long-term facility rehabilitation) Call your provider Call your provider for: Fever or Chills, Shortness of breath, Bleeding, Chest pain, Vomitting, Excessive diarrhea, Weakness (unilateral) Patient Instructions Patient Instructions We are going to discharge you to a rehabilitation facility for further physical therapy in order for you to get stronger and more steady on your feet. You have been through quite an ordeal, and it will likely take a few weeks for you to get your strength back. Your broken arm further complicates the issue because you can't use a walker like you normally would. What I really want to avoid is a situation where you go home too soon, are unsteady on your feet, and have another fall perhaps breaking another bone or worsening the fracture in your right arm. Because of all this I think the harper move is to spend some time at a long term facility where they can guide you through the rehabilitation process, and have the staff on hand to assist you during this process. We are going to have [facility] follow up with you for potentially starting Trilogy respiratory therapy to see if you need more intensive oxygen than can be provided by nasal prongs. Follow-up plan Follow up with Dr. Vinson within 2 weeks. He will be able to help you coordinate your medications and deciding when it might be safe to return home. Please follow up with Dr. Agrawal the orthopedist in 2 weeks for further discussion about your arm. Follow-up Provider: Jay Jay Vinson MD Follow-up with PCP in: 2 weeks Provider: Fabio Agrawal MD Follow-up in: 2 weeks Renetta Hodges DO 11/27/16 1552: Discharge Instructions Attending's Statement The patient was seen and examined together with Dr. Veloz on 11/27/16 and I agree with the history, exam and plan as outlined in the note above. Mayo Veloz DO Nov 27, 2016 10:14 Renetta Hodges DO Nov 27, 2016 15:52
[2016-11-27] MEDS ORDERED: DILT60TA PO (10:31)
--- NOTE | 2016-11-27 11:10 | NUR ---
Social Work: Discharge D: Pt has been accepted at [facility] with Dr. King to follow. MD is aware and has written orders for discharge to skilled rehab for further strengthening. Orders, Prescriptions, PASSR and Instructions faxed to [facility]. Receipt of fax confirmed by Emy at [facility]. Transportation arranged for 1300 via cabulance. MANAGER [employer] met with pt and daughter at bedside to confirm discharge plan. They are pleased to hear pt was accepted at [facility] and agree with plan for discharge at 1300. No other needs or concerns expressed by pt or family A: Pt who will require SNF for further rehab and strengthening P: Pt to discharge to [facility] with Dr. King to follow; transport arranged for 1300. TAD Lara Addendum: 11/27/16 at 1455 by INDIRA VARNER MANAGER COUNTRY received notification from staff at [facility] stating that at time of pickup from [facility], pt's daughter had concerned pt was not medically stable for discharge and requested to see MD. MD was notified and saw the patient and proceeded with discharge. Pt did not choose to appeal discharge and case management was not informed of this concern by [facility] Staff or pt/daughter. Addendum: 11/27/16 at 1741 by INDIRA VARNER SS MANAGER COUNTRY received t/c from Mikaela Flood with [facility], she has orders to arrange for Trilogy delivery at discharge however at this time, [facility] will not allow her to deliver the equipment unless orders received by [facility]. MANAGER COUNTRY reviewed discharge summary and instructions. MD states that pt will need to be followed by [facility] for further evaluation of respiratory needs. MANAGER COUNTRY discussed this issue with attending MD, Dr. Hodges, who agrees that pt needs Trilogy at [facility]. MANAGER COUNTRY obtained trilogy orders written by Dr. Veloz and will fax them to [facility]. t/c to [facility]- MANAGER COUNTRY left message for Hattie Bhavya to notify that MANAGER [employer] was faxing orders for Trilogy ([phone] and [phone]). t/c to [facility]- MANAGER COUNTRY spoke with aircraft captain, Chaya; MANAGER COUNTRY informed her that orders were faxed for Trilogy. She states that she has received these orders but they are still determining whether they will allow the pt to have this machine. MANAGER COUNTRY informed her that per the discharging doctor's orders, verbal confirmation from attending MD and the written orders obtained for Trilogy setup from [facility], pt requires this machine and that they would hold the liability of pt's care if not allowed to have this at their facility. She states that they did not know pt would need trilogy at admission; MANAGER COUNTRY informed them that that was a screening process that needs to be addressed with admissions. She states that her doctor clinical applications manager, Dr. Wang will be contacting Dr. Veloz to discuss this personally. They will follow up with [facility] after this conversation. t/c to Mikaela Flood, she states that they are willing to work with [facility] staff to ensure the pt gets the Trilogy at least for tonight until the administration team can assist with the patient's care tomorrow.
[2016-11-27 12:13] VITALS: BP 167/102; PULSE 99; RESP 24; O2SAT 96
--- NOTE | 2016-11-27 12:30 | PCM.DC.MED ---
Discharge Summary Date of Service Nov 27, 2016 Dates of Hospitalization Date of Hospital Admission November 17, 2016 at 21:39 Date of Discharge: Nov 27, 2016 Providers: Admitting Physician: Casandra Dover DO Primary Care Physician: Jay Jay Vinson MD Attending Physician: Casandra Dover DO Diagnosis at Time of Discharge Diagnosis at Time of Discharge Hypercapnic hypoxic respiratory failure, acute, POA, Improved: When you arrived you were not breathing very well at all. This was causing a toxic build up of carbon dioxide. For this reason we had to put you on a breathing machine until you were able to resume breathing on your own. I am very encouraged by the progress you have made since removing the breathing tube. You may need to start on a more aggressive supplemental oxygen system after leaving here, at this point you are breathing pretty well just on the nasal oxygen. I will have the respiratory therapy company follow up with you at your facility to see if you may need the Trilogy system for further breathing support. Acute on chronic hyponatremia. Present on admission. Improved: This has actually turned out to not be much of an issue here at the hospital. Please continue to look out for the symptoms you have had in the past when your sodium gets too low. If you find yourself drinking a lot of water please notify your primary care doctor to see if your sodium is dropping. Metabolic encephalopathy, acute, POA. Resolved: As above when you arrived you were not breathing well. This was causing a build up of carbon dioxide in your system which made you sleepy and confused. Please keep an eye out for similar symptoms in the future. Possible aspiration, present on admission. Resolved: There was some initial concern about you aspirating some blood into your lungs given the nose bleed you were having when you arrived. Thus far we have not had any great concern for an infection from this process while you were here in the hospital. Fractured right humerus, POA. Active: This will be followed up by Dr. Agrawal in his clinic in the next 2 weeks. Please continue to do range of motion exercises with your wrist as described by physical therapy. COPD. POA, chronic. Active: Macrocytic Anemia. Present admission. Ongoing History CVA with left-sided weakness. Is in remission. Active Hyperlipidemia. Present on admission. Active Hypertension. Present on admission. Active Tachycardia GERD. Present on admission. Active . Consultations Pulmonary critical care with Dr. Paige, Dr. Diamond, and Dr. Mcgee Orthopedics with Dr. Agrawal Palliative care with Dr. Alvarez and Dr. Cherry Procedures XRay, CTs & MRIs X-RAY CHEST ONE VIEW, PORTABLE IMPRESSION: 1. Endotracheal tube in normal position. Persistent retrocardiac left lower lobe dense opacification consistent with pneumonia/aspiration. 2. The current study shows what appears to be a moderate degree of gaseous distention of the middle third of the esophagus. This is in the setting of a prior recent CT scan showing what appears to be a large hiatal hernia behind the heart, but differentiation between an esophagogastric mass and large hiatal hernia is difficult without benefit of esophagram or endoscopy. Followup for possible mass in that area may be warranted. The esophagus was not gas-dilated during prior CT scanning. Dictated by: Shaji James M.D. on 11/23/2016 at 7:43 X-RAY CHEST ONE VIEW, PORTABLE IMPRESSION: 1. Limited exam secondary to technique demonstrating bibasilar pleural effusions and airspace opacities consistent with compressive atelectasis or consolidation. 2. Displaced right humeral neck fracture. Dictated by: Samir Chung RR Interpreted: Neelam Miller MD on 11/26/2016 at 9:41 Approved by: Neelam Miller MD, PhD on 11/26/2016 at 10:06 . Cardiac Echo Impression Interpretation Summary The left ventricular cavity is small. The ejection fraction is estimated to be 65-70%. The right ventricle is normal in size and function. The aortic valve is not well visualized. Leaflet mobility is mildly reduced. The aortic valve is moderately calcified. There is mild aortic stenosis. There is no hemodynamically significant valvular aortic stenosis. The peak aortic velocity is 2.1 m/sec. The peak aortic velocity on the previous exam was 2.77 m/ sec. There is trace tricuspid regurgitation. Compared to the prior echo exam, there has been a decrease in TR severity. Right ventricular systolic pressure is estimated to be 28 mmHg plus the clinically estimated CVP which cannot be estimated on this exam. Compared to the prior echo exam, there has been a decrease in the severity of pulmonary hypertension. Brief History Taken from History and Physical composed by Dr. Tuan Grijalva on 11/18/16 Ms. Beach is a 76 -year-old female with past medical history of hyponatremia, hypertension, COPD on 2 L home O2, CVA with residual left-sided weakness, underwent deficiency anemia bilateral carotid artery stenosis status post endarterectomy who presented to the ED via EMS secondary to decreased mental status and increased oxygenation demands. In the ED patient given 1 L normal saline, 4 mg Zofran. EKG showed sinus rhythm rate of 76 with normal axis and normal intervals no ST or T-wave abnormalities. CT angiogram chest showed no evidence of PE though did show bilateral pleural effusions and infiltrates left greater than right, some concern for aspiration. Patient had no leukocytosis and was afebrile. Hemoglobin 11.1, platelets 490. Urinalysis showed no evidence of infection. . Hospital Course 76 female with past medical history of chronic hyponatremia, COPD on home O2, CVA, bilateral carotid stenosis s/p recent endarterectomy admitted for hyponatremia, hypoxia and encephalopathy likely secondary to hypercapnic respiratory failure. Family had been titrated home O2 to saturation > 95% which may have induced decreased respiratory drive in this patient with severe underlying COPD. The patient tolerated extubation on 11/24/16 without any great difficultly, and was transitioned to nasal cannula where she manifested borderline saturation which has continued to improve. Upon discharge the patient may require nocturnal and daytime volume ventilation on a PRN basis. The company for Trilogy has been contacted and they will follow up with the patient for possible Trilogy usage. Bipap may be insufficient due to the severity of her underlying COPD which is the primary cause of her chronic respiratory failure and hypercapnia. The patient has been manifesting tachycardia with hypertension, thus diltiazem dosing was increased to attempt to rectify this issue. The patient has done well and progressed daily however the patient is deconditioned at this time. The family will really like to take the patient home however due to her deconditioning she is a 2 person assist even to stand at this time. The family was reluctant to start [facility] facility rehabilitation however they do feel that this is the safest up for the patient at this time and understand that this is a temporary process and the patient may only need 2-4 weeks of rehabilitation. For Full Hospital course see below: Hypercapnic hypoxic respiratory failure, acute, POA, Improved - Patient with history of COPD with likely undiagnosed AXEL - Family had been titrating home O2 to keep saturation > 95% - ABG completed following admission pH 7.053, pCO2 139, pO2 85.9, HCO3 36.9, subsequent ABG unremarkable - CT angio showed bilateral pleural effusions and infiltrates left greater than right - Intubated following admission with transfer from [facility] to CCU status - 1 amp bicarb given prior to intubation - Patient was extubated without difficulty 11/24/16 - Patient currently on Mechanical soft diet per speech therapy - As above, patient may require both nocturnal and daytime volume ventilation on a PRN basis. Bipap may be insufficient due to the severity of her underlying COPD which is the primary cause of her chronic respiratory failure and hypercapnia. Will have respiratory therapy follow up as outpatient to determine if Trilogy may be necessary to fulfill patient's needs Acute on chronic hyponatremia. Present on admission. 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 Resolved -likely secondary to hypercapnia, though patient does have history of AMS with hyponatremia -CT head negative Possible aspiration, present on admission. Resolved - Concern for aspiration of blood secondary to recent oral and nasal bleed - Pro calcitonin essentially negative - piperacillin-tazobactam discontinued - Held Plavix/ASA secondary to daughter's preference and concern for ongoing oral bleeding COPD. POA, chronic. Active - Now with acute COPD exacerbation - Albuterol ipratropium q4hr PRN Macrocytic Anemia. Present admission. Ongoing - Hemoglobin/hematocrit 11.1/36.6 upon presentation, downtrending with likely dilutional component - History of GI AVM however macrocytic, - B12 and folate unremarkable with B12 elevated likely secondary to supplementation - Coags unremarkable - Stool guaiac negative - Continue to monitor History CVA with left-sided weakness. Is in remission. Active - Patient does not show any signs or symptoms of repeat injury - Swallow eval passed patient currently tolerating diet Hyperlipidemia. Present on admission. Active - restart statin when appropriate Hypertension. Present on admission. Active - Increased Diltiazam today to 60mg TID - Current blood pressure 182/83 Tachycardia - HR 115 - Increased Diltiazam today to 60mg TID GERD. Present on admission. Active - Held home Protonix by mouth - Protonix switched to famotidine while inpatient Fractured right humerus, POA. Active -Patient has been seen as an outpatient by Dr. Agrawal on 11/11/16 for this issue -At that time he determined that the patient was likely not a candidate for surgical intervention due to comorbid conditions -The patient is likely even further removed from surgical candidacy at this point given her prolonged ventilation -Patient's status was clarified with orthopedics, who continued to defer surgical management and recommended below the elbow mobility exercises with PT -Repeat XR revealed gross displacement of humeral head with respect to the neck -Dr. Agrawal consulted and interviewed the patient with no change in plan in regards to her being a poor surgical candidate Leukocytosis, acute, POA, Resolved -concern for acute infection - most likely PNA given history of recent aspiration -Germain in neutrophils likely related to steroid administration -treatment as above Diarrhea, not POA, acute. Active -Patient not manifesting any signs of active GI infection -Likely secondary to overly aggressive advancement of diet following prolonged NPO status . Exam Vital Signs (Last) Date Time Temp Pulse Resp B/P Pulse Ox O2 Delivery O2 Flow Rate FiO2 11/27/16 12:13 36.9 99 24 167/102 96 Room Air 11/27/16 08:19 2.00 11/24/16 10:20 30 Exam Gen: A/O x3 pleasant elderly woman comfortable on NC, NAD Neck: Supple, non tender, no JVD, Full ROM HEENT: PERRL, EOMI, no scleral icterus, no conjunctival pallor, voice hoarse and quiet. CV: RRR mild 2/6 systolic ejection murmur Resp: Lungs CTA BL, no wheezing rales or rhonchi Abd: Soft, non-tender, no organomegaly, no rebound or guarding Extr: Bruising around the proximal right humerus with right arm in sling Neuro: CN 2-12 grossly intact, no focal neurologic deficit. Psych: mood pleasant and appropriate Test 11/17/16 19:20 11/17/16 19:31 11/18/16 02:20 11/18/16 03:10 Osmolality 276 (275-300) Vitamin B12 Level >1999pg/mL (211-946) Folate > 19.9ng/mL (>3.0) Urine Color Yellow (YELLOW) Urine Appearance Clear (CLEAR,HAZY) Urine pH 5.5 (5.0-8.0) Urine Specific [place] 1.025 (1.003-1.035) Urine Protein 100mg/dL (NEG,TRACE) Urine Glucose (UA) Negativemg/dL (NEGATIVE) Urine Ketones 15mg/dL (NEGATIVE) Urine Occult Blood Negative (NEGATIVE) Urine Nitrite Negative (NEGATIVE) Urine Bilirubin Negative (NEGATIVE) Urine Urobilinogen Normalmg/dL (NORMAL) Urine Leukocyte Esterase Negative (NEGATIVE) Urine RBC 0-2/hpf (0-2) Urine WBC 0-5/hpf (0-5) Urine Epithelial Cells Few/hpf (NONE-MOD) Urine Crystals Amorphous urates (NONE Urine Bacteria None/hpf (NONE-FEW) Urine Hyaline Casts None/lpf (NONE) Urine Granular Casts None seen (NONE SEEN) Urine Waxy Casts None seen (NONE SEEN) Urine Red Blood Cell Casts None seen (NONE SEEN) Urine White Blood Cell Casts None seen (NONE SEEN) Urine Mucus Present (None Seen) Urine Trichomonas None seen (NONE SEEN) Urine Yeast None (NONE SEEN) Urinalysis Comment None Urine Culture Reflexed Not indicated Urine Osmolality 673mOs/kH2O (250-1200) Lactic Acid Level 0.4mmol/L (0.4-2.0) Hold Grijalva Top Tube Received (Received) Activated Partial Thromboplast Time 27.3sec (22.8-33.0) Test 11/18/16 06:05 11/18/16 08:20 11/18/16 10:50 11/18/16 11:28 Hematology Comments Troponin T 0.026ug/L (0.0-0.011) Urine Random Sodium 72mEq/L Iron Level 33ug/dL (35-150) Total Iron Binding Capacity 315ug/dL (250-450) Percent Iron Saturation 10%sat (15-50) Unsaturated Iron Binding 282.1ug/dL Lactate Dehydrogenase 269U/L (100-190) Blood Smear Pathologist Review Reticulocyte Count,Calculated 8.2% (0.6-2.6) Test 11/18/16 14:30 11/21/16 02:54 11/21/16 11:25 6/5/17 05:00 Whole Blood Lead 1ug/dL (0-19) Prealbumin 5mg/dL (20-40) Methylmalonic Acid 84nmol/L (0-378) Homocysteine 3.6umol/L (0.0-15.0) Thyroid Stimulating Hormone (TSH) 0.813uIU/mL (0.450-4.500) Test 11/26/16 05:50 11/26/16 15:50 11/27/16 01:45 Prothrombin Time 12.6sec (8.1-12.5) Prothromb Time International Ratio 1.17ratio Total Bilirubin 0.5mg/dL (0.0-1.2) Aspartate Amino Transf (AST/SGOT) 16U/L (0-50) Alanine Aminotransferase (ALT/SGPT) 17U/L (0-32) Alkaline Phosphatase 81U/L (25-165) Total Protein 5.7g/dL (6.4-8.4) Albumin 3.3g/dL (3.4-5.0) Procalcitonin 0.12ng/mL (0.00-0.08) Hold Purple Top Tube Received (Received) Hold [place] Top Tube Received (Received) White Blood Count 10.3th/mm3 (3.8-10.1) Red Blood Count 3.59mil/mm3 (3.90-5.20) Hemoglobin 10.9g/dL (12.0-15.6) Hematocrit 35.1% (35.0-46.0) Mean Corpuscular Volume 97.8fL (81-100) Mean Corpuscular Hemoglobin 30.4pg (27.0-35.0) Mean Corpuscular Hemoglobin Concent 31.1% (32.0-37.0) Red Cell Distribution Width 16.0% (12.3-15.4) Platelet Count 280bil/L (150-400) Neutrophils (%) (Auto) 92.0% (40-74) Lymphocytes (%) (Auto) 2.8% (14-46) Monocytes (%) (Auto) 4.4% (4-12) Eosinophils (%) (Auto) 0% (0-5) Basophils (%) (Auto) 0% (0-3) Sodium Level 137mEq/L (134-144) Potassium Level 3.6mEq/L (3.5-5.2) Chloride Level 91mEq/L (97-108) Carbon Dioxide Level 34mmol/L (18-29) Blood Urea Nitrogen 18mg/dL (8-27) Creatinine 0.39mg/dL (0.57-1.00) Estimat Glomerular Filtration Rate 230mL/min (>59) Glucose Level 143mg/dL (60-99) Calcium Level 8.9mg/dL (8.5-10.1) Phosphorus Level 2.9mg/dL (2.5-4.9) Magnesium Level 1.5mg/dL (1.6-2.6) Microbiology Results Sputum culture and PCR negative MRSA nasal swab positive Discharge Medications Discharge Medications Ascorbic Acid (Acerola C) 500 Mg Wafer 500 MG PO QAM (Reported) Aspirin Chew (Aspirin Chew) 81 Mg Chew 81 MG PO DAILY Prescribed by: LORENZO MITCHELL DO Atorvastatin Calcium (Atorvastatin Calcium) 40 Mg Tablet 40 MG PO HS Prescribed by: LORENZO MITCHELL DO Calcium Carbonate (Calcium Carbonate) 200 Mg Tab.chew 200 MG PO BIDWM (Reported ) Clopidogrel (Clopidogrel) 75 Mg Tablet 75 MG PO DAILY (Reported) Diltiazem (Diltiazem) 30 Mg Tablet 60 MG PO TID Prescribed by: AYLEEN REYES DO Diltiazem (Diltiazem) 60 Mg Tablet 60 MG PO TID Prescribed by: AYLEEN REYES DO Ferrous Sulfate (Ferrous Sulfate) 325 Mg Tablet 325 MG PO DAILYWM (Reported) Ketoconazole (Ketoconazole) 15 Gm Cream..g. 1 APPLIC TP DAILY (Reported) 2% CREAM Pantoprazole DR (Protonix) 40 Mg Tablet 40 MG PO BID Prescribed by: KAMILLE GRAY MD Vit B Comp/C/FA/Iron/Vit E (Vitamin B Complex Tablet) 1 Each Tablet 1 EACH PO DAILY (Reported) As needed Albuterol Neb Soln (Albuterol Neb Soln) 1.25 Mg/3 Ml Vial.neb 1.25 MG INHALATION Q6H PRN PRN For Shortness of Breath (Reported) Loratadine (Claritin) 10 Mg Capsule 10 MG PO DAILY PRN PRN For Congestion ( Reported) Additional med instructions We have increased your Diltiazem to 60 mg three times per day. You may be able to transition over to the extended release formula that would be 180 mg once per day, but given that your heart rate just became stable with this medication we don't want to make any adjustments at this time. I know that three times per day dosing is problematic so you can discuss going over to the extended release formula with your primary care provider. Followup Plan Follow-up plan Follow up with Dr. Vinson within 2 weeks. He will be able to help you coordinate your medications and deciding when it might be safe to return home. Please follow up with Dr. Agrawal the orthopedist in 2 weeks for further discussion about your arm. Discharge Diet: Heart Healthy (Please take it easy on your stomach for the next few weeks. You went several days without eating, and probably moved a little too fast introducing heavy foods back into your diet which has probably caused your diarrhea. Start slow with foods like oatmeal, toast, vegetables, and non greasy protein like chicken or fish.) Discharge Activity: Other ([facility] facility rehabilitation) Patient Instructions We are going to discharge you to a rehabilitation facility for further physical therapy in order for you to get stronger and more steady on your feet. You have been through quite an ordeal, and it will likely take a few weeks for you to get your strength back. Your broken arm further complicates the issue because you can't use a walker like you normally would. What I really want to avoid is a situation where you go home too soon, are unsteady on your feet, and have another fall perhaps breaking another bone or worsening the fracture in your right arm. Because of all this I think the harper move is to spend some time at a [facility] facility where they can guide you through the rehabilitation process, and have the staff on hand to assist you during this process. We are going to have [facility] follow up with you for potentially starting Trilogy respiratory therapy to see if you need more intensive oxygen than can be provided by nasal prongs. Follow-up Provider: Jay Jay Vinson MD Follow-up with PCP in: 2 weeks Provider: Fabio Agrawal MD Follow-up in: 2 weeks Time spent Time spent coordinating discharge and counseling the patient and family > 35 minutes Attending Statement The patient was seen and examined together with Dr. Reyes on 11/27/16 and I have added additional information to the note above. copies to: Jay Jay Vinson MD; Alexia King MD, David E DO Nov 27, 2016 12:30 Renetta Hodges DO Nov 27, 2016 16:13 Patient Instructions We are going to discharge you to a rehabilitation facility for further physical therapy in order for you to get stronger and more steady on your feet. You have been through quite an ordeal, and it will likely take a few weeks for you to get your strength back. Your broken arm further complicates the issue because you can't use a walker like you normally would. What I really want to avoid is a situation where you go home too soon, are unsteady on your feet, and have another fall perhaps breaking another bone or worsening the fracture in your right arm. Because of all this I think the harper move is to spend some time at a [facility] facility where they can guide you through the rehabilitation process, and have the staff on hand to assist you during this process. We are going to have [facility] follow up with you for potentially starting Trilogy respiratory therapy to see if you need more intensive oxygen than can be provided by nasal prongs. Follow-up Provider: Jay Jay Vinson MD Follow-up with PCP in: 2 weeks Provider: Fabio Agrawal MD Follow-up in: 2 weeks Time spent Time spent coordinating discharge and counseling the patient and family > 35 minutes Ayleen Reyes DO Nov 27, 2016 12:30
--- NOTE | 2016-11-27 12:48 | NUR ---
Discharge Pt d/c'd via cabulance to [facility] at 1245. VSS. Daughter with pt at time of d/c. [facility] d/c'd at 1010, pt able to void post d/c of [facility]. Denies pain. No diarrhea this morning.
--- NOTE | 2016-11-28 07:56 | NUR ---
Social Work: Post Discharge Entry Staffed case with Forecast Analyst; [facility] report made. Addendum: 11/28/16 at 0815 by INDIRA FITZGERALD [facility] Confirmation #[id number]
== END 2016-11-27 12:30 | DRG 207 ==
LOC: EDBD 17:32 → SED 17:32 → MPC 21:39 → PCC 22:05 → CCU 11-18 02:36 → PCC 11-25 07:59
PROVIDERS: ADMIT Internal Medicine; ATTEND Internal Medicine
PROC: 5A1955Z Respiratory Ventilation, Greater than 96 Consecutive Hours (ICD-10-PCS; principal; 2016-11-18)
PROC: 4A033R1 Measurement of Arterial Saturation, Peripheral, Percutaneous Approach (ICD-10-PCS; 2016-11-18)
PROC: 0BH17EZ Insertion of Endotracheal Airway into Trachea, Via Natural or Artificial Opening (ICD-10-PCS; 2016-11-18)
DX: J96.22 Acute and chronic respiratory failure with hypercapnia (principal); G93.41 Metabolic encephalopathy; J69.8 Pneumonitis due to inhalation of other solids and liquids; I69.354 Hemiplegia and hemiparesis following cerebral infarction affecting left non-dominant side; S42.301A Unspecified fracture of shaft of humerus, right arm, initial encounter for closed fracture; E22.2 Syndrome of inappropriate secretion of antidiuretic hormone; J96.21 Acute and chronic respiratory failure with hypoxia; J44.9 Chronic obstructive pulmonary disease, unspecified; D53.9 Nutritional anemia, unspecified; E78.5 Hyperlipidemia, unspecified; I10 Essential (primary) hypertension; K21.9 Gastro-esophageal reflux disease without esophagitis; Z51.5 Encounter for palliative care